=== PATIENT | female | born 1950 | race Caucasian/White ===

== ENCOUNTER 2020-11-30 18:51 | Inpatient (IN) ==
[2020-11-30] MEDS ORDERED: ETOMIDATE 2 MG/ML 20 ML VIAL IV ONE (19:04)
[2020-11-30] MEDS ORDERED: ROCURONIUM BROMIDE 10 MG/ML 5 ML VIAL IV ONE (19:04)
[2020-11-30] MEDS ORDERED: SODIUM CHLORIDE 0.9% 500 ML IV STA (19:30)
[2020-11-30] MEDS ORDERED: ALBUT/IPRATROP 3MG/0.5MG NEB 3 ML VIAL INH STA (19:30)
--- NOTE | 2020-11-30 19:37 | Emergency Department Note ---
History of Present Illness General Chief complaint: Shortness of Breath/Dyspnea Stated complaint: disorineted, sob, cough, hard of hearing Time Seen by Provider: 11/30/20 19:20 Source: patient Mode of arrival: ambulatory Limitations: no limitations History of Present Illness Provider complaint: Short of breath Maximum Pain Intensity: 5 This is a 70-year-old female who presents to the ED with a chief complaint of shortness of breath. The patient reports that she has had a nonproductive cough for a couple of weeks. She has recently become increasingly short of breath. Her increased shortness of breath started few days ago. She also reports feeling very weak and lightheaded. No additional complaints at this time. She reports no known Covid exposures. No vomiting or diarrhea. No chest pains. In triage she was noted to have saturations of 84% on room air. Denies any history of lung disease. She is a diabetic but reports that she has not been taking her medications for the past week or so because she has forgotten. Home Medications Medication Instructions Recorded Confirmed Type amlodipine 5 mg PO QAM 06/02/18 11/30/20 History aspirin [Aspirin Low Dose] 81 mg PO QAM 06/02/18 11/30/20 History cholecalciferol (vitamin D3) 1,000 unit PO QAM 06/02/18 11/30/20 History [Vitamin D3] glimepiride 1 mg PO QAM 06/02/18 11/30/20 History hydroxyzine HCl 10 mg PO BID PRN 11/30/20 11/30/20 History lisinopril 20 mg PO DAILY 11/30/20 11/30/20 History rosuvastatin 5 mg PO DAILY 11/30/20 11/30/20 History Allergies Allergy/AdvReac Type Severity Reaction Status Date / Time latex Allergy Unknown SWELLING Unverified 11/30/20 19:05 Penicillins Allergy Unknown HIGH Unverified 11/30/20 19:05 FEVER, RED BUMPS ON FACE. Past Med/Surg History Medical History Diabetes Hypertension Surgical History No significant past surgical history Social History Smoking Status: Never smoker Feels Safe at Home: Yes Review of Systems A total of 10 systems reviewed and were otherwise negative Physical Exam Vital Signs Vital Signs - 24 hr 11/30/20 18:55 11/30/20 19:30 11/30/20 19:45 Temperature 36.5 C Temperature Source Temporal Artery Scan Pulse Rate 96 H Pulse Rate [Finger] 83 Respiratory Rate 22 20 Respiratory Effort / Characteristics Non-Labored Spontaneous Pursed Lip Short of Breath Respiratory Depth Normal Respiratory Pattern Blood Pressure 144/71 H Blood Pressure [Right Arm] Blood Pressure Mean 95 Blood Pressure Mean [Right Arm] Blood Pressure Position [Right Arm] Pulse Oximetry 84 L 94 94 Oxygen Delivery Method Room Air Nasal Cannula Nasal Cannula Oxygen Flow Rate 3 3 Sepsis Recent Fever Within 48 Hours No Sepsis New/Unexplained Change in Mental Status N/A Sepsis Action Taken by Nursing No Action Required 11/30/20 20:36 Temperature Temperature Source Pulse Rate Pulse Rate [Finger] 86 Respiratory Rate 24 Respiratory Effort / Characteristics Non-Labored Spontaneous Respiratory Depth Normal Respiratory Pattern Regular Blood Pressure Blood Pressure [Right Arm] 141/44 H Blood Pressure Mean Blood Pressure Mean [Right Arm] 76 Blood Pressure Position [Right Arm] Lying Pulse Oximetry 94 Oxygen Delivery Method Nasal Cannula Oxygen Flow Rate 3 Sepsis Recent Fever Within 48 Hours Sepsis New/Unexplained Change in Mental Status Sepsis Action Taken by Nursing CONSTITUTIONAL/VITAL SIGNS: Reviewed / noted above. GENERAL: Non-toxic in appearance. INTEGUMENTARY: Warm, dry, and [place]. HEAD: Normocephalic. EYES: without scleral icterus or trauma. ENT/OROPHARYNX: clear and moist. LYMPHADENOPATHY/NECK: Is supple without lymphadenopathy or meningismus. RESPIRATORY: Lungs reveal some crackles on the right side. CARDIOVASCULAR: Regular rate and rhythm. GI/ABDOMEN: Soft and nontender. No organomegaly or pulsatile mass. No rebound or guarding. Normal bowel sounds. EXTREMITIES: Warm and well perfused. BACK: No CVA tenderness. NEUROLOGICAL: Intact without focal deficits. PSYCHIATRIC: normal affect. MUSCULOSKELETAL: Normally developed with good muscle tone. TRIAGE NURSING DOCUMENTATION REVIEWED. Course Administered Medications Azithromycin 500 mg/ Dextrose 255 mls @ 125 mls/hr IV ONE ONE Stop: 11/30/20 21:53 Last Admin: 11/30/20 20:32 Dose: 125 mls/hr Documented by: [id number] Discontinued Medications Albuterol (Albut/Ipratrop 3mg/0.5mg Neb 3 Ml Vial) 3 ml INH NOW STA Stop: 11/30/20 19:31 Last Admin: 11/30/20 19:50 Dose: 3 ml Documented by: [id number] Sodium Chloride (Nss) 500 mls @ 999 mls/hr IV .Q31M STA Stop: 11/30/20 20:00 Last Infusion: 11/30/20 20:38 Dose: 0 mls/hr Documented by: [id number] Admin: 11/30/20 19:59 Dose: 999 mls/hr Documented by: [id number] Sodium Chloride (Nss 1000ml) 1,000 mls @ 999 mls/hr IV .Q1H1M ONE Stop: 11/30/20 21:28 Last Admin: 11/30/20 20:32 Dose: 999 mls/hr Documented by: [id number] Critical Care Time Critical Care Time: Yes Total Critical Care Time: 30 I have personally spent 30 minutes of critical care time in the direct management of this patient. This includes bedside care, interpretation of diagnostic studies, and testing, discussion with consultants, patient, and family members, and other required patient management activities. This 30 minutes is in excess of all separately billable procedures. Medical Decision Making Differential Diagnosis The differential was considered includes acute myocardial infarction, acute coronary syndrome, myocarditis, pericarditis, pericardial effusions /tamponad, esophageal perforation, pulmonary embolism, pneumonia, pneumothorax, cardiomyopathy, congestive heart, anemia , COPD/asthma exacerbation. Medical Records Attestation: I reviewed the patient's medical records. Home Medications Current Medication List: was personally reviewed by me Laboratory Data Attestation: I reviewed the patient's lab results. Result diagrams: 11/30/20 19:38 11/30/20 19:38 Lab Results 11/30/20 11/30/20 11/30/20 Range/Units 19:38 19:38 19:55 WBC 4.41 L (4.8-10.8) K/uL RBC 5.42 H (4.2-5.4) M/uL Hgb 15.1 (12.0-16.0) g/dL Hct 44.4 (37-47) % MCV 81.9 (80-100) fL MCH 27.9 (25-34) pg MCHC 34.0 (32-36) g/dL RDW Std Deviation 40.5 (36.4-46.3) fL RDW Coeff of Frank 13.5 (11.5-14.5) % Plt Count 179 (130-400) K/uL MPV 10.9 H (7.4-10.4) fL Immature Gran % (Auto) 0.2 % Neut % (Auto) 73.1 % Lymph % (Auto) 12.0 % [place] % (Auto) 14.5 % Eos % (Auto) 0.0 % Baso % (Auto) 0.2 % Neut # (Auto) 3.22 (1.4-6.5) K/uL Lymph # (Auto) 0.53 L (1.2-3.4) K/uL [place] # (Auto) 0.64 H (0.11-0.59) K/uL Eos # (Auto) 0.00 (0-0.5) K/uL Baso # (Auto) 0.01 (0-0.2) K/uL Immature Gran # (Auto) 0.01 (0.00-0.02) K/uL Sodium 130 L (136-145) mmol/L Potassium 4.9 (3.5-5.1) mmol/L Chloride 96 L (98-107) mmol/L Carbon Dioxide 20 L (21-32) mmol/L Anion Gap 14.0 H (3-11) BUN 85 H (7-18) mg/dl Creatinine 3.19 H (0.6-1.2) mg/dl Est Cr Clr Drug Dosing Not Reportable Est GFR ( Amer) 16.1 ml/min Est GFR (Non-Af Amer) 13.9 ml/min BUN/Creatinine Ratio 26.6 H (10-20) Glucose 262 H (70-99) mg/dl Lactate (0.4-2.0) mmol/L Calcium 8.8 (8.5-10.1) mg/dl Total Bilirubin 0.7 (0.2-1) mg/dl AST 37 (15-37) U/L ALT 23 (12-78) U/L Alkaline Phosphatase 55 (45-117) U/L Troponin I < 0.015 (0-0.045) ng/ml NT-Pro-B Natriuret Pep 393 (0-900) pg/ml Total Protein 7.2 (6.4-8.2) gm/dl Albumin 2.8 L (3.4-5.0) gm/dl Globulin 4.4 H (2.5-4.0) gm/dl Albumin/Globulin Ratio 0.6 L (0.9-2) COVID-19 Eval Order SARS-CoV-2 (PCR) (Negative) Influ A Molecular Assay Negative (Negative) Influ B Molecular Assay Negative (Negative) 11/30/20 11/30/20 11/30/20 Range/Units 19:55 19:55 20:11 WBC (4.8-10.8) K/uL RBC (4.2-5.4) M/uL Hgb (12.0-16.0) g/dL Hct (37-47) % MCV (80-100) fL MCH (25-34) pg MCHC (32-36) g/dL RDW Std Deviation (36.4-46.3) fL RDW Coeff of Frank (11.5-14.5) % Plt Count (130-400) K/uL MPV (7.4-10.4) fL Immature Gran % (Auto) % Neut % (Auto) % Lymph % (Auto) % [place] % (Auto) % Eos % (Auto) % Baso % (Auto) % Neut # (Auto) (1.4-6.5) K/uL Lymph # (Auto) (1.2-3.4) K/uL [place] # (Auto) (0.11-0.59) K/uL Eos # (Auto) (0-0.5) K/uL Baso # (Auto) (0-0.2) K/uL Immature Gran # (Auto) (0.00-0.02) K/uL Sodium (136-145) mmol/L Potassium (3.5-5.1) mmol/L Chloride (98-107) mmol/L Carbon Dioxide (21-32) mmol/L Anion Gap (3-11) BUN (7-18) mg/dl Creatinine (0.6-1.2) mg/dl Est Cr Clr Drug Dosing Est GFR ( Amer) ml/min Est GFR (Non-Af Amer) ml/min BUN/Creatinine Ratio (10-20) Glucose (70-99) mg/dl Lactate 1.6 (0.4-2.0) mmol/L Calcium (8.5-10.1) mg/dl Total Bilirubin (0.2-1) mg/dl AST (15-37) U/L ALT (12-78) U/L Alkaline Phosphatase (45-117) U/L Troponin I (0-0.045) ng/ml NT-Pro-B Natriuret Pep (0-900) pg/ml Total Protein (6.4-8.2) gm/dl Albumin (3.4-5.0) gm/dl Globulin (2.5-4.0) gm/dl Albumin/Globulin Ratio (0.9-2) COVID-19 Eval Order Covid19 at [facility] SARS-CoV-2 (PCR) POSITIVE A* (Negative) Influ A Molecular Assay (Negative) Influ B Molecular Assay (Negative) Imaging Data Attestation: I personally reviewed and interpreted this imaging study as follows: Radiologist's Impression: Chest X-Ray 11/30/20 19:30 SINGLE VIEW CHEST CLINICAL HISTORY: Dyspnea. FINDINGS: An AP, portable, upright chest radiograph is compared to study dated 06/02/2018. The patient is status post midline sternotomy. The heart is enlarged noting atherosclerotic calcification of the thoracic aorta. There is pulmonary vascular congestion. Bilateral interstitial airspace opacities are seen bilaterally. No large pleural effusion or pneumothorax is identified. The skeletal structures are osteopenic. The bony thorax is grossly intact. IMPRESSION: 1. Cardiomegaly with pulmonary vascular congestion. 2. Interstitial airspace opacities are seen bilaterally. This could represent pulmonary edema and/or an infectious/inflammatory pneumonitis. Clinical correlation will be required and radiographic follow-up to resolution is recommended. ACT 112: Negative or not required by law. Electronically signed by: Shubham Lindsey M.D. 11/30/2020 8:38 PM ECG Data Attestation: I personally reviewed and interpreted this ECG as follows: Indication: + weakness Rate (beats per minute): 84 Rhythm: + normal sinus ECG Intervals/blocks: + Normal QT-c ECG ST segments: no ST elevation ECG Findings: no PVCs MDM Narrative Patient presents with shortness of breath, weakness and a cough as detailed above. Vital signs reveal oxygen saturations of 84% on room air. Blood pressure and heart rate are normal. Currently afebrile. EKG shows normal sinus rhythm. Chest x-ray shows bilateral pneumonia in the lower lobes. CBC shows a white blood cell count of 4.41. BUN is 85 and creatinine is 3.19. Glucose is 262. BNP was normal. Troponin is negative. Covid test was positive. The patient was given 2 L normal saline IV. She was given IV Zithromax and a DuoNeb treatment. She will be seen by the hospitalist for further patient evaluation and care. Impression & Plan Bilateral interstitial pneumonia, COVID-19, Acute renal failure Discharge Plan Visit Data Chief Complaint: Shortness of Breath/Dyspnea Stated Complaint: disorineted, sob, cough, hard of hearing ED Provider: Virgil Fischer Discharge Problem: Bilateral interstitial pneumonia, COVID-19, Acute renal failure Patient Disposition: Being Evaluated by Hospitalist Forms Stand Alone Forms: [facility] Prescriptions Prescriptions: No Action amlodipine 5 mg tablet 5 mg PO QAM RF: 0 aspirin [Aspirin Low Dose] 81 mg Tablet,Delayed Release (Dr/Ec) 81 mg PO QAM RF: 0 glimepiride 1 mg tablet 1 mg PO QAM RF: 0 cholecalciferol (vitamin D3) [Vitamin D3] 1,000 unit Capsule 1,000 unit PO QAM RF: 0 lisinopril 20 mg tablet 20 mg PO DAILY RF: 0 rosuvastatin 5 mg tablet 5 mg PO DAILY RF: 0 hydroxyzine HCl 10 mg tablet 10 mg PO BID PRN (Reason: anxiety/itching) RF: 0 Referrals Referrals: Bala Neely MD [Primary Care Provider] -
[2020-11-30 19:51] LABS: Basophils # (auto) 0.01 K/uL (0-0.2); Basophils % (auto) 0.2 %; Hematocrit (blood only) 44.4 % (37-47); Hemoglobin 15.1 g/dL (12.0-16.0); Immature Granulocytes # (auto) 0.01 K/uL (0.00-0.02); Immature Granulocytes % (auto) 0.2 %; Lymphocytes # (auto) 0.53 K/uL (1.2-3.4); Mean Corpuscular Hemoglobin 27.9 pg (25-34); Mean Corpuscular Volume 81.9 fL (80-100); Mean Platelet Volume 10.9 fL (7.4-10.4); Monocytes # (auto) 0.64 K/uL (0.11-0.59); Monocytes % (auto) 14.5 %; Neutrophils # (auto) 3.22 K/uL (1.4-6.5); Neutrophils % (auto) 73.1 %; Platelet Count 179 K/uL (130-400); RDW Coefficient of Variation 13.5 % (11.5-14.5); RDW Standard Deviation 40.5 fL (36.4-46.3); Red Blood Count 5.42 M/uL (4.2-5.4); White Blood Count 4.41 K/uL (4.8-10.8)
[2020-11-30] MEDS ORDERED: AZITHROMYCIN 500 MG in DEXTROSE 5% 250 ML IV ONE (19:51)
[2020-11-30 20:21] LABS: Alanine Aminotransferase 23 U/L (12-78); Albumin Level 2.8 gm/dl (3.4-5.0); Aspartate Aminotransferase 37 U/L (15-37); BUN Creatinine Ratio 26.6 (10-20); Blood Urea Nitrogen 85 mg/dl (7-18); Calcium 8.8 mg/dl (8.5-10.1); Carbon Dioxide 20 mmol/L (21-32); Chloride 96 mmol/L (98-107); Est GFR (African American) 16.1 ml/min; Est GFR (Non-African American) 13.9 ml/min; Glucose 262 mg/dl (70-99); Potassium 4.9 mmol/L (3.5-5.1); Sodium 130 mmol/L (136-145)
[2020-11-30 20:26] LABS: Albumin Globulin Ratio 0.6 (0.9-2); Alkaline Phosphatase 55 U/L (45-117); Bilirubin,Total 0.7 mg/dl (0.2-1); Globulin 4.4 gm/dl (2.5-4.0); NT Pro B Type Natriuretic Pept 393 pg/ml (0-900); Total Protein 7.2 gm/dl (6.4-8.2); Troponin I < 0.015 ng/ml (0-0.045)
[2020-11-30] MEDS ORDERED: SODIUM CHLORIDE 0.9% 1000ML 1,000 ML IV ONE (20:28)
--- NOTE | 2020-11-30 20:39 | XRay Report ---
SINGLE VIEW CHEST CLINICAL HISTORY: Dyspnea. FINDINGS: An AP, portable, upright chest radiograph is compared to study dated 06/02/2018. The patien t is status post midline sternotomy. The heart is enlarged noting atherosclerotic calcification of th e thoracic aorta. There is pulmonary vascular congestion. Bilateral interstitial airspace opacities a re seen bilaterally. No large pleural effusion or pneumothorax is identified. The skeletal structures are osteopenic. The bony thorax is grossly intact. IMPRESSION: 1. Cardiomegaly with pulmonary vascular congestion. 2. Interstitial airspace opacities are seen bilaterally. This could represent pulmonary edema and/or an infectious/inflammatory pneumonitis. Clinical correlation will be required and radiographic follow -up to resolution is recommended. ACT 112: Negative or not required by law. Electronically signed by: Shubham Lindsey M.D. 11/30/2020 8:38 PM
[2020-11-30 20:43] LABS: Influenza A virus by PCR Negative (Negative); Influenza B virus by PCR Negative (Negative)
[2020-11-30] MEDS ORDERED: dexAMETHasone 6 MG in SYRINGE 0 ML IV ONE (21:15)
--- NOTE | 2020-11-30 21:40 | History & Physical Report ---
Date of Service November 30, 2020 Assessment & Plan (1) Hypoxia: (2) Pneumonia due to COVID-19 virus: (3) ADONIS (acute kidney injury): (4) Diabetes mellitus, type II: (5) CAD (coronary artery disease): (6) Hypertension: Assessment and plan per Dr. Juan HPI, chart review, [facility], PE completed by Aster Parra PA-C History of Present Illness Chief Complaint: SOB Primary Care Provider: Bala Neely MD Pt is 70 y/o F with PMH DM II (A1c: 8.8 on 09/2020), HTN, CAD s/p CABG x 3 presented to ER with complaint of shortness of breath. Patient is currently confused and gives history however unsure how reliable from patient. Chart review and outpatient records reviewed. Patient reports returned from the [place] a couple of weeks ago. She is unable to tell me the [place] or the state but reports she did travel by airplane. She reports she has had a cough for couple weeks and has been having increasing shortness of breath, worse with exertion. She feels weak and lightheaded. Also complains of lower anterior chest discomfort. Patient does not think she has had lower extremity edema. She reports that she has been having trouble remembering recently. She states doesn't remember when she last took her medication. Patient denies any known ill contacts, however ER nurse reports somebody called in to state that patient was around somebody who has now tested positive for COVID-19. She reports has not had COVID-19 vaccination. She denies fever, chills, nausea, vomiting, diarrhea, abdominal pain, syncope, rhinorrhea, sore throat, abdominal pain, paresthesias, rashes, urinary symptoms. In ER in triage oxygen saturations were noted to be 84%, patient was placed on oxygen with O2 sats up to 94% on 3L via nasal cannula. COVID-19 PCR is positive. initial troponin negative. CXR: Interstitial airspace opacities are seen bilaterally. Lactate within normal limits. BUN: 85, Cr: 3.1 (baseline Cr: 1.6) Allergies Allergy/AdvReac Type Severity Reaction Status Date / Time latex Allergy Unknown SWELLING Unverified 11/30/20 19:05 Penicillins Allergy Unknown HIGH Unverified 11/30/20 19:05 FEVER, RED BUMPS ON FACE. Home Medications Medication Instructions Recorded Confirmed Type amlodipine 5 mg PO QAM 06/02/18 11/30/20 History aspirin [Aspirin Low Dose] 81 mg PO QAM 06/02/18 11/30/20 History cholecalciferol (vitamin D3) 1,000 unit PO QAM 06/02/18 11/30/20 History [Vitamin D3] glimepiride 1 mg PO QAM 06/02/18 11/30/20 History hydroxyzine HCl 10 mg PO BID PRN 11/30/20 11/30/20 History lisinopril 20 mg PO DAILY 11/30/20 11/30/20 History rosuvastatin 5 mg PO DAILY 11/30/20 11/30/20 History Past Med/Surg History Medical History (Updated 11/30/20 @ 21:37 by Aster Parra PA-C) CAD (coronary artery disease) Diabetes Diabetes mellitus, type II Hypertension Surgical History (Updated 11/30/20 @ 21:31 by Aster Parra PA-C) S/P CABG x 3 Family History (Updated 11/30/20 @ 21:34 by Aster Parra PA-C) Mother Cancer Social History (Updated 11/30/20 @ 21:34 by Aster Parra PA-C) Smoking Status: Never smoker Hx Alcohol Use: No Hx Substance Use: No Zinc Plate Cutter Required: No Beliefs That Will Affect Care: None Current Living Situation: Family Other Information That Helps Us Care for You: No Feels Safe at Home: Yes Safety Concerns: Feels Safe At This Time Assistive Devices: Denture - Upper Review of Systems Review of Systems: All systems reviewed & are unremarkable except as noted in HPI & below Physical Exam Physical Exam: General: no distress, resting in bed on 3L oxygen via NC, obese Head: normocephalic, atraumatic Eyes: PERRL, EOM's intact, conjunctiva non-injected, anicteric ENT: normal inspection external ears, nose, mucous membranes dry Neck: supple, trachea midline Lungs: on 3L oxygen, no respiratory distress, +dry cough, course breath sounds throughout CV: RRR, no murmur, 1-2+ pretibial edema Abd: normal BS, soft, non-tender Ext: no cyanosis, no calf tenderness Neuro: Alert, oriented to person, knows in hospital but unsure of name or town, knows 2020 unsure of month or day Skin: warm, dry Results & Data Results & Data ([facility]) Vital Signs (Past 12 Hours) Vital Signs Temp Pulse Pulse Resp BP BP Pulse Ox 11/30/20 20:36 86 24 141/44 H 94 11/30/20 19:45 83 20 94 11/30/20 19:30 94 11/30/20 18:55 36.5 C 96 H 22 144/71 H 84 L Laboratory Results Short CBC 11/30/20 11/30/20 Range/Units 19:38 19:38 WBC 4.41 L (4.8-10.8) K/uL Hgb 15.1 (12.0-16.0) g/dL Hct 44.4 (37-47) % Plt Count 179 (130-400) K/uL Creatinine 3.19 H (0.6-1.2) mg/dl BMP 11/30/20 19:38 Sodium 130 L Potassium 4.9 Chloride 96 L Carbon Dioxide 20 L BUN 85 H Creatinine 3.19 H Glucose 262 H Calcium 8.8 Cardiac Enzymes 11/30/20 Range/Units 19:38 Troponin I < 0.015 (0-0.045) ng/ml Liver Function 11/30/20 Range/Units 19:38 Total Bilirubin 0.7 (0.2-1) mg/dl AST 37 (15-37) U/L ALT 23 (12-78) U/L Alkaline Phosphatase 55 (45-117) U/L Albumin 2.8 L (3.4-5.0) gm/dl Diagnostic Findings Chest X-Ray 11/30/20 19:30 SINGLE VIEW CHEST CLINICAL HISTORY: Dyspnea. FINDINGS: An AP, portable, upright chest radiograph is compared to study dated 06/02/2018. The patient is status post midline sternotomy. The heart is enlarged noting atherosclerotic calcification of the thoracic aorta. There is pulmonary vascular congestion. Bilateral interstitial airspace opacities are seen bilaterally. No large pleural effusion or pneumothorax is identified. The skeletal structures are osteopenic. The bony thorax is grossly intact. IMPRESSION: 1. Cardiomegaly with pulmonary vascular congestion. 2. Interstitial airspace opacities are seen bilaterally. This could represent pulmonary edema and/or an infectious/inflammatory pneumonitis. Clinical correlation will be required and radiographic follow-up to resolution is recommended. ACT 112: Negative or not required by law. Electronically signed by: Shubham Lindsey M.D. 11/30/2020 8:38 PM Supervising Physician Co-Signing Physician Notes IM ATTENDING : Patient seen and examined. History obtained from patient, family, and records. History somewhat limited from patient secondary to disorientation. Preceding documentation by Ms. Aster Parra PA-C reviewed. FINAL ASSESSMENT AND PLAN as follows : Encephalopathy Multifactorial : Acute hypoxemic respiratory failure secondary to severe COVID-19 pneumonia rule out PE given central chest pain complaints ARF on CKD secondary to illness Home medications contributory CAD status post CABG Hypertension, slight elevated Hyperlipidemia on statin Rx DM2, on oral medications, suboptimal control as of recent hemoglobin A1c of 8.22 September 2020 Past tobacco abuse Medical telemetry Supplemental O2 Decadron No indication for antibiotic for now. IV Heparin until PE DVT ruled out (VQ scan if possible, LE Dopplers; CT angio study currently precluded by kidney dysfunction) TTE RE chest pain Pulmonary consult if without improvement Baseline UA, monitor creatinine response to IVF Appropriate to hold home ED inhibitor until creatinine back to baseline Nephrology consult if without improvement Hold hydroxyzine for chronic itch until mentation back to baseline Basal insulin, ISS BG goal 1 10-1 40, carb count coverage DVT prophylaxis. IV Heparin Full code Patient's daughter requesting updates from providers. Ms. Alisa Cagle, contact #[phone]. Text document was generated using [employer] voice recognition software. It may contain grammatical or spelling errors. Kindly contact undersigned for clarification of any documentation item in question.
[2020-11-30 21:43] LABS: Magnesium 2.5 mg/dl (1.8-2.4); Thyroid Stimulating Hormone 0.766 uIu/ml (0.300-4.500)
[2020-11-30] MEDS ORDERED: INSULIN GLARGINE SOLOSTAR 100 UNITS/ML 3 ML PEN SC STA (21:50)
[2020-11-30 22:42] LABS: Base Excess ABG -5.9 mEq/L (-9-1.8); HCO3 ABG 17 mmol/L (19-24); Oxygen Saturation ABG 88.5 % (90-95); PCO2 ABG 28 mmHg (35-46); PO2 ABG 54 mmHg (80-95); pH ABG 7.41 (7.35-7.45)
[2020-11-30 22:45] LABS: Allen Test Pos (Pos)
[2020-11-30 22:52] LABS: Partial Thromboplastin Time 27.3 Seconds (21.0-31.0)
[2020-11-30 22:59] LABS: Calcium 7.6 mg/dl (8.5-10.1); Creatinine Clr Calc Pharmacy 19.8 ml/min; Est GFR (African American) 19.5 ml/min; Est GFR (Non-African American) 16.8 ml/min; Potassium 4.5 mmol/L (3.5-5.1)
[2020-11-30] MEDS ORDERED: GLUCAGON FOR INJ 1 MG VIAL SQ PRN (23:39)
[2020-11-30] MEDS ORDERED: PROMETHAZINE HCL 12.5 MG in SODIUM CHLORIDE 0.9% 50 ML IV PRN (23:39)
[2020-11-30] MEDS ORDERED: DEXTROSE 50% 50 ML SYRINGE IV PRN (23:39)
[2020-11-30] MEDS ORDERED: GLUCOSE 40% GEL 15 GM TUBE PO PRN (23:39)
[2020-11-30] MEDS ORDERED: GLUCOSE 10 TABS/TUBE PO PRN (23:39)
[2020-11-30] MEDS ORDERED: CARBOHYDRATES FOR HYPOGLYCEMIA PO PRN (23:39)
[2020-11-30] MEDS ORDERED: LACTATED RINGER'S 1,000 ML IV ONE (23:55)
[2020-12-01] MEDS: LEVALBUTEROL TARTRATE 15 GM HFA.AER.AD INH SCH ×4 (00:42→20:53)
[2020-12-01] MEDS: INSULIN ASPART 100 UNITS/ML 3 ML PEN SC SCH ×5 (01:27→20:57)
[2020-12-01] MEDS: guaiFENesin 600 MG TABCR PO SCH ×3 (01:27→22:12)
[2020-12-01] MEDS ORDERED: Heparin IV Adult Wt-Based Standard *NO* Bolus Protocol IV SCH (02:09)
[2020-12-01] MEDS ORDERED: HEPARIN SODIUM/DEXTROSE 25,000 UNITS/500 ML BAG IV SCH (02:25)
[2020-12-01 06:28] LABS: Hematocrit (blood only) 38.4 % (37-47); Hemoglobin 13.1 g/dL (12.0-16.0); Immature Granulocytes # (auto) 0.01 K/uL (0.00-0.02); Immature Granulocytes % (auto) 0.4 %; Lymphocytes # (auto) 0.46 K/uL (1.2-3.4); Lymphocytes % (auto) 19.9 %; Mean Corpuscular Hemoglobin 27.4 pg (25-34); Mean Corpuscular Hgb Conc 34.1 g/dL (32-36); Mean Corpuscular Volume 80.3 fL (80-100); Mean Platelet Volume 10.2 fL (7.4-10.4); Monocytes # (auto) 0.16 K/uL (0.11-0.59); Monocytes % (auto) 6.9 %; Neutrophils # (auto) 1.68 K/uL (1.4-6.5); Neutrophils % (auto) 72.8 %; Platelet Count 158 K/uL (130-400); RDW Coefficient of Variation 13.4 % (11.5-14.5); RDW Standard Deviation 39.6 fL (36.4-46.3); Red Blood Count 4.78 M/uL (4.2-5.4); White Blood Count 2.31 K/uL (4.8-10.8)
--- NOTE | 2020-12-01 06:34 | Ultrasound Report ---
BILATERAL LOWER EXTREMITY VENOUS DOPPLER CLINICAL HISTORY: pe dvt workup COMPARISON STUDY: Bilateral lower extremity venous Doppler ultrasound February 24, 2018. TECHNIQUE: Sonography of the deep venous system of the bilateral lower extremities was performed. Co mpression and augmentation were evaluated. FINDINGS: The bilateral common femoral, superficial femoral and popliteal veins were compressible. A ugmentation was normal. Flow was shown within the deep calf vessels. IMPRESSION: No evidence of deep venous thrombus within the bilateral lower extremities. ACT 112: Negative or not required by law. Electronically signed by: Deshawn Corona M.D. 12/01/2020 6:33 AM
[2020-12-01 06:56] LABS: BUN Creatinine Ratio 30.8 (10-20); Calcium 8.1 mg/dl (8.5-10.1); Creatinine Clr Calc Pharmacy 20.1 ml/min; Est GFR (African American) 20.4 ml/min; Est GFR (Non-African American) 17.6 ml/min; Potassium 4.5 mmol/L (3.5-5.1)
[2020-12-01 07:01] LABS: Troponin I 0.018 ng/ml (0-0.045)
--- NOTE | 2020-12-01 07:16 | CT Scan Report ---
HEAD CT NONCONTRAST CT DOSE: HISTORY: Altered mental status TECHNIQUE: Multiaxial CT images of the head were performed without the use of intravenous contrast. A utomated exposure control was utilized for this study. A dose lowering technique was utilized adheri ng to the principles of ALARA. Comparison: None. Findings: The paranasal sinuses and mastoid air cells are clear. The calvarium and skull base are int act. The ventricles and sulci are within normal limits. There is no mass, hematoma, midline shift, or acute infarct. Impression: No acute intracranial abnormality. ACT 112: Negative or not required by law. Electronically signed by: Hossein Solano M.D. 12/01/2020 7:15 AM
--- NOTE | 2020-12-01 07:43 | CT Scan Report ---
CT OF THE ABDOMEN AND PELVIS WITHOUT CONTRAST CLINICAL HISTORY: Abdominal discomfort, arf ckd COMPARISON STUDY: CT of the abdomen and pelvis June 02, 2018. TECHNIQUE: Axial images of the abdomen and pelvis were obtained without IV contrast. Images were revi ewed in the axial, sagittal, and coronal planes. Automated exposure control was utilized for the ed dy. A dose lowering technique was utilized adhering to the principles of ALARA. FINDINGS: Subpleural airspace opacities are noted within the lower lungs, most pronounced within the visualized right upper lobe. Lungs are suboptimally assessed due to respiratory motion. No pneumatosi s, free air or portal venous gas is present. Cardiomegaly is noted. There is a small hiatal hernia. L ow-attenuation bilateral adrenal nodules are unchanged. These reflect adenomas. There are gallstones within the gallbladder. Evaluation of the gallbladder is mildly compromised by motion artifact. Hepat ic steatosis is noted. Unenhanced images of the spleen and pancreas are unremarkable. There is no reina dence for a bowel obstruction. The appendix is normal. Colonic diverticulosis is noted without eviden ce for acute diverticulitis. No urinary calculi are present. There is no hydronephrosis. A right-side d parapelvic cyst is noted. Bladder is mildly distended. Moderate left and mild right renal atrophy i s noted. Bilateral perinephric stranding and fluid is nonspecific. No acute fracture is noted within visualized skeletal structures. IMPRESSION: 1. No urinary calculi or hydronephrosis. Moderate left and mild right renal atrophy with nonspecific bilateral perinephric stranding. 2. Airspace opacities within the lower lungs. The findings could reflect an infectious process, pulmo nary edema or interstitial lung disease. 3. Cholelithiasis. If right upper quadrant pain, ultrasound is recommended. 4. Hepatic steatosis. 5. No bowel obstruction ACT 112: Negative or not required by law. Electronically signed by: Deshawn Corona M.D. 12/01/2020 7:42 AM
[2020-12-01] MEDS: ASPIRIN 81 MG ECTAB PO SCH (08:55)
[2020-12-01] MEDS: dexAMETHasone 6 MG in SYRINGE 0 ML IV SCH (08:55)
[2020-12-01] MEDS: amLODIPine BESYLATE 5 MG TAB PO SCH (08:55)
[2020-12-01] MEDS: ROSUVASTATIN CALCIUM 5 MG TAB PO SCH (08:56)
[2020-12-01] MEDS ORDERED: DOXYCYCLINE HYCLATE 100 MG CAP PO SCH (09:00)
[2020-12-01] MEDS ORDERED: INSULIN GLARGINE SOLOSTAR 100 UNITS/ML 3 ML PEN SQ SCH (09:00)
[2020-12-01 11:00] LABS: Partial Thromboplastin Ratio 3.8
[2020-12-01 11:10] LABS: Partial Thromboplastin Time 101.2 Seconds (21.0-31.0)
--- NOTE | 2020-12-01 15:07 | Electrocardiogram Report ---
Test Reason : Blood Pressure : / mmHG Vent. Rate : 084 BPM Atrial Rate : 084 BPM P-R Int : 140 ms QRS Dur : 070 ms QT Int : 342 ms P-R-T Axes : 000 018 032 degrees QTc Int : 404 ms Normal sinus rhythm Poor R wave progression, consider anterior CT vs. lead placement vs. LVH Abnormal ECG Confirmed by Stelring Martini ([id number]) on 12/01/2020 3:06:58 PM Referred By: REFERRED SELF Confirmed By:Amos Martini
--- NOTE | 2020-12-01 15:19 | Pulmonary Consultation ---
Date of Consultation December 01, 2020 Assessment & Plan (1) Pneumonia due to COVID-19 virus: 70-year-old female with a history of coronary artery bypass grafting, hypertension, obesity, diabetes mellitus type 2 and hyperlipidemia who presented to the hospital due to lethargy and shortness of breath. Hypoxia: This is secondary to COVID-19 pneumonia. Possible component of congestive heart failure given her history of coronary artery bypass grafting interstitial findings. Recommend as needed diuretic therapy with Lasix. She does have an ADONIS which is slowly improving. She is currently on IV heparin. Lower extremity Dopplers were negative. I do not suspect pulmonary embolism at this time. She does not have evidence of tachycardia. She has infiltrates noted on the chest x-ray likely from Covid pneumonia which are the most likely cause of her hypoxia. Micro thromboemboli are very difficult to rule out in such patients. If she has a sudden decompensation concerning for pulmonary embolism, then I would recommend going ahead and obtaining a chest CT with contrast. At this time I would recommend transitioning to subcutaneous heparin. Continue with Decadron therapy. Consider CRP, ferritin and D-dimer evaluations. If she decompensates further from a COVID-19 perspective and requires ICU transfer, then she may be a candidate for tocilizumab therapy. She appears stable at present. Encourage proning. Recommend incentive spirometry and flutter valve therapy. Discussed with hospitalist and RN at bedside. Thank you for the consultation. Please call with questions. (2) Hypoxia: (3) CAD (coronary artery disease): History of Present Illness Reason for Consultation: COVID-19 pneumonia and hypoxia Attending Physician: Yanet Shah MD History of Present Illness 70-year-old female with a history of diabetes mellitus type 2 and coronary artery disease who presented to the hospital yesterday due to confusion. Patient's family member is also in the hospital due to COVID-19 illness. She was recently in [place] and traveled by airplane. She has had a cough for a few weeks. She is currently requiring 13 L of oxygen to maintain saturations in the low 90s. Chest x-ray completed yesterday demonstrated increased interstitial opacities. Pleural BNP completed yesterday was within normal limits at a level of 393 pg/mL. ADONIS was present on admission with creatinine 3.19. This is improved to 2.63 today. ABG from admission reviewed which demonstrates respiratory alkalosis with hypoxia on 3 L of oxygen. PO2 was 54. She is currently on dexamethasone 6 mg daily and heparin infusion. Lower extremity Doppler yesterday was negative for DVT in the bilateral lower ex tremities. Patient denies any significant cough at this time. She feels like she has more energy now. She is currently laying in bed. She denies any shortness of breath while at rest. No fevers or chills at this present time. Allergies Allergy/AdvReac Type Severity Reaction Status Date / Time latex Allergy Unknown SWELLING Unverified 11/30/20 19:05 Penicillins Allergy Unknown HIGH Unverified 11/30/20 19:05 FEVER, RED BUMPS ON FACE. Home Medications Medication Instructions Recorded Confirmed Type amlodipine 5 mg PO QAM 06/02/18 11/30/20 History aspirin [Aspirin Low Dose] 81 mg PO QAM 06/02/18 11/30/20 History cholecalciferol (vitamin D3) 1,000 unit PO QAM 06/02/18 11/30/20 History [Vitamin D3] glimepiride 1 mg PO QAM 06/02/18 11/30/20 History hydroxyzine HCl 10 mg PO BID PRN 11/30/20 11/30/20 History lisinopril 20 mg PO DAILY 11/30/20 11/30/20 History rosuvastatin 5 mg PO DAILY 11/30/20 11/30/20 History Patient History Medical History (Updated 11/30/20 @ 21:37 by Aster Parra PA-C) CAD (coronary artery disease) Diabetes Diabetes mellitus, type II Hypertension Surgical History (Updated 11/30/20 @ 21:31 by Aster Parra PA-C) S/P CABG x 3 Family History (Updated 11/30/20 @ 21:34 by Aster Parra PA-C) Mother Cancer Social History (Updated 11/30/20 @ 21:34 by Aster Parra PA-C) Smoking Status: Never smoker Hx Alcohol Use: No Hx Substance Use: No Beverage Distiller Required: No Beliefs That Will Affect Care: None Current Living Situation: Family Other Information That Helps Us Care for You: No Feels Safe at Home: Yes Safety Concerns: Feels Safe At This Time Assistive Devices: Denture - Upper Review of Systems Review of Systems: All systems reviewed & are unremarkable except as noted in HPI & below Physical Exam Constitutional: + obese and + disheveled Respiratory: normal respiratory effort, lungs clear to auscultation Cardiovascular: RRR, no murmur, no edema Gastrointestinal (Abdomen): normal bowel sounds, soft, nontender, no hepatosplenomegaly Musculoskeletal: no cyanosis or clubbing, extremities motor strength 5/5 Skin: no rashes, warm and dry Neurologic: PERRL, EOMI, accommodation nl, no face palsy, no dysarthria Psychiatric: A+Ox3, euthymic affect Results & Data Results & Data ([facility]) Vital Signs (Past 12 Hours) Vital Signs Temp Pulse Pulse Resp BP Pulse Ox 12/01/20 13:24 75 18 91 12/01/20 11:44 97.7 F 74 21 132/63 92 12/01/20 07:48 98.2 F 74 20 107/66 90 12/01/20 07:43 74 12/01/20 07:24 75 20 91 vital signs, labs and imaging reviewed PG Care Time/CCT Total # of Minutes Spent Total Time Spent with Patient: Total time spent is greater than 50% in coordination of care (as documented) at patient's floor/unit and/or counseling patient: Coding Level of Care Code 56831 Initial Inpt Care Lvl 3 Diagnoses Pneumonia due to COVID-19 virus U07.1; J12.82 Hypoxia R09.02 CAD (coronary artery disease) I25.10
--- NOTE | 2020-12-01 16:41 | Hospitalist Progress Note ---
Date of Service December 01, 2020 Assessment & Plan (1) Hypoxia: (2) Pneumonia due to COVID-19 virus: Present on admission worsening shortness of breath COVID-19 tested positive CXR showed cardiomegaly with pulmonary vascular congestion. Interstitial airspace opacities are seen bilaterally. Started on Dexamethasone 6mg IV daily, will continue Remdesivir did not start due to poor renal function Pt was started on heparin drip since unable to get a CTA chest to r/o PE Hypoxia moslty due to COVID 19. Doubt of PE since no tachycardia and CXR showed infiltrate mostly from COVID 19 Pulm consulted Will discontinue heparin drip Continue oxygen supplement Check D-dimer, CRP, Ferritin and ESR Continue to monitor closely ADONIS Mostly due to acute illness Creatinine 2.6 today Avoid nephrotoxic agent Continue monitor BMP Metabolic encephalopathy Mostly related to acute illness/COVID 19 CT head showed no acute intracranial abnormality Clinically improves CAD Denies any chest Continue aspirin and statin Diabetes We will check an A1c Continue insulin sliding with NovoLog and Lantus Pharmacy consulted for glycemic management Continue monitor blood sugar DVT px Discontinue heparin started on subcu heparin CODE status full code . (3) ADONIS (acute kidney injury): (4) Diabetes mellitus, type II: (5) CAD (coronary artery disease): (6) Hypertension: Assessment and plan per Dr. Juan HPI, chart review, PM, PE completed by Aster Parra PA-C Admission and Anticipated Discharge Date Admission Date: November 30, 2020 Subjective Patient was seen and examined for shortness of breath due to Covid 19 Lying in bed with mild acute distress. Currently she is on 13 L of oxygen supplement Patient said her breathing improved. Denies any chest pain, palpitation, chest, and fever Review of Systems Review of Systems: All systems reviewed & are unremarkable except as noted in Subjective Physical Exam Physical Exam: General- No acute distress Head- atraumatic Eyes- PERRL, EOMI, ENT- oropharynx clear Neck- supple, no JVD Lungs-no wheezing Heart- regular rhythm; no murmur Abdomen- normal bowel sounds, soft, nontender Extremities- no calf tenderness Neuro- alert, oriented x 3; PERRL, EOMI; no facial palsy; no dysarthria Skin- warm & dry Results & Data Results & Data ([facility]) Vital Signs (Past 12 Hours) Vital Signs Temp Pulse Pulse Resp BP Pulse Ox 12/01/20 13:24 75 18 91 12/01/20 11:44 36.5 C 74 21 132/63 92 12/01/20 07:48 36.8 C 74 20 107/66 90 12/01/20 07:43 74 12/01/20 07:24 75 20 91
[2020-12-01] MEDS ORDERED: PHARMACY GLYCEMIC MGMT CONSULT PRN (17:00)
[2020-12-01 17:10] LABS: Partial Thromboplastin Ratio 4.3
[2020-12-01] MEDS ORDERED: INSULIN GLARGINE SOLOSTAR 100 UNITS/ML 3 ML PEN SC STA (17:14)
[2020-12-01 17:44] LABS: Partial Thromboplastin Time 111.8 Seconds (21.0-31.0)
[2020-12-01] MEDS: HEPARIN SOD 5,000 UNIT/0.5 ML VIAL SQ SCH ×2 (18:13→22:12)
[2020-12-02] MEDS: INSULIN ASPART 100 UNITS/ML 3 ML PEN SC SCH ×6 (00:38→20:46)
[2020-12-02] MEDS: LEVALBUTEROL TARTRATE 15 GM HFA.AER.AD INH SCH ×4 (01:49→20:24)
[2020-12-02] MEDS: HEPARIN SOD 5,000 UNIT/0.5 ML VIAL SQ SCH ×3 (05:42→20:42)
[2020-12-02 07:16] LABS: BUN Creatinine Ratio 29.6 (10-20); C Reactive Protein 1.98 mg/dl (0-0.29); Calcium 9.2 mg/dl (8.5-10.1); Creatinine Clr Calc Pharmacy 21.4 ml/min; Est GFR (African American) 22.1 ml/min; Est GFR (Non-African American) 19.1 ml/min; Potassium 4.1 mmol/L (3.5-5.1)
[2020-12-02 07:46] LABS: D Dimer 1150 ug/L FEU (0-500)
[2020-12-02] MEDS: guaiFENesin 600 MG TABCR PO SCH ×2 (08:25→20:47)
[2020-12-02] MEDS: ROSUVASTATIN CALCIUM 5 MG TAB PO SCH (08:26)
[2020-12-02] MEDS: ASPIRIN 81 MG ECTAB PO SCH (08:26)
[2020-12-02] MEDS: amLODIPine BESYLATE 5 MG TAB PO SCH (08:26)
[2020-12-02] MEDS: dexAMETHasone 6 MG in SYRINGE 0 ML IV SCH (08:26)
[2020-12-02 11:06] LABS: iSTAT Allen Test Pass; iSTAT Art Bld Gas pCO2 Correct 23 mmHg (35-46); iSTAT Art Bld Gas pH Corrected 7.476 (7.35-7.45); iSTAT Arterial Blood Gas HCO3 17 meg/L (19-24); iSTAT Arterial Blood Gas pCO2 23 mmHg (35-46); iSTAT Arterial Blood Gas pH 7.48 (7.35-7.45); iSTAT Arterial Blood Gas pO2 41 mmHg (80-95); iSTAT Arterial Blood Gas pO2 C 41; iSTAT Carbon Dioxide 18 mmol/L (24-31); iSTAT Hematocrit 40 % (37-47); iSTAT Hemoglobin 13.6 g/dl (12.0-16.0); iSTAT Potassium 4.5 mmol/L (3.3-5.0); iSTAT Site L Radial; iSTAT Sodium 132 mmol/L (135-144)
[2020-12-02 11:06] LABS: iSTAT Allen Test Pass; iSTAT Art Bld Gas pCO2 Correct 29 mmHg (35-46); iSTAT Art Bld Gas pH Corrected 7.438 (7.35-7.45); iSTAT Arterial Blood Gas HCO3 19 meg/L (19-24); iSTAT Arterial Blood Gas pCO2 29 mmHg (35-46); iSTAT Arterial Blood Gas pH 7.44 (7.35-7.45); iSTAT Arterial Blood Gas pO2 36 mmHg (80-95); iSTAT Arterial Blood Gas pO2 C 36; iSTAT Carbon Dioxide 20 mmol/L (24-31); iSTAT Hematocrit 42 % (37-47); iSTAT Hemoglobin 14.3 g/dl (12.0-16.0); iSTAT Potassium 4.8 mmol/L (3.3-5.0); iSTAT Site L Radial; iSTAT Sodium 137 mmol/L (135-144)
--- NOTE | 2020-12-02 12:30 | XRay Report ---
SINGLE VIEW CHEST CLINICAL HISTORY: Dyspnea. FINDINGS: 2 AP, portable, upright chest radiographs are compared to study dated 11/30/2020. The examin ation is degraded by portable technique and patient rotation. The patient is status post midline ster notomy. The heart is enlarged noting atherosclerotic calcification of the thoracic aorta. There is pr ominence of the pulmonary vasculature. Bilateral interstitial airspace opacities are again seen bilat erally. No large pleural effusion or pneumothorax is identified. The skeletal structures are osteopen ic. The bony thorax is grossly intact. IMPRESSION: 1. Cardiomegaly with prominence of the pulmonary vasculature. 2. Interstitial airspace opacities are again seen bilaterally and unchanged as compared to previous. ACT 112: Negative or not required by law. Electronically signed by: Shubham Lindsey M.D. 12/02/2020 12:28 PM
--- NOTE | 2020-12-02 14:30 | Pharmacy Report ---
Pharmacy Glycemic Short Note 2 - Date of Service December 02, 2020 - Glycemic Short BSG Results (Last 24 hours): 12/01/20 12/01/20 12/01/20 16:28 16:31 20:32 Glucose POC Glucose 433 H* 419 H* 271 H 12/02/20 12/02/20 12/02/20 00:24 04:27 06:32 Glucose 63 L POC Glucose 189 H 90 12/02/20 12/02/20 12/02/20 07:53 07:54 08:20 Glucose POC Glucose 66 L* 65 L* 79 12/02/20 12:06 Glucose POC Glucose 89 OUTPATIENT ANTIDIABETIC REGIMEN: * glimepiride 1 mg po daily * A1c 8.8% 09/2020 ASSESSMENT: * Patient admitted with increased shortness of breath/COVID. Started on IV dexamethasone. Type 2 diabetic with hx of CAD, htn. * Pharmacy consulted for glycemic management. Received consult last evening as BSGs in 400s * Patient received total of 86 units of insulin yesterday, of which 40 units were Lantus. * Fasting BSG low at 65 mg/dL - no symptoms of hypoglycemia per notes. Received IV dexamethasone dose this AM * Held AM basal insulin as likely we are still seeing effects from dose of Lantus given last night with dinner * Lunch BSG still on lower end of range at 89 mg/dL - will continue to hold further basal for now. PO intake is none PLAN FOR INPATIENT GLYCEMIC CONTROL: * Hold outpatient oral diabetes medications * Basal insulin * Lantus - hold * NPH - may need to add for tomorrow AM 12/03 * Bolus insulin * NovoLog per scale ACHS or Q6hrs while NPO * Goal Range: Low 110 mg/dL - High 140 mg/dL * Correction Factor: 25 mg/dL/unit * Nutritional / Prandial insulin per carb ratio of 1 unit per 9 grams CHO consumed PLAN FOR DISCHARGE: * tbd
[2020-12-02 14:35] LABS: Albumin Level 2.5 gm/dl (3.4-5.0); BUN Creatinine Ratio 29.8 (10-20); Calcium 8.8 mg/dl (8.5-10.1); Creatinine Clr Calc Pharmacy 22.3 ml/min; Est GFR (African American) 23.2 ml/min; Est GFR (Non-African American) 20.1 ml/min; Potassium 5.1 mmol/L (3.5-5.1)
[2020-12-02 14:36] LABS: Albumin Globulin Ratio 0.6 (0.9-2); Bilirubin,Total 0.5 mg/dl (0.2-1); Total Protein 6.5 gm/dl (6.4-8.2)
--- NOTE | 2020-12-02 15:29 | Pulmonology Progress Note ---
Date of Service December 02, 2020 Assessment & Plan (1) Pneumonia due to COVID-19 virus: 70-year-old female with a history of coronary artery bypass grafting, hypertension, obesity, diabetes mellitus type 2 and hyperlipidemia who presented to the hospital due to lethargy and shortness of breath. Hypoxia: This is secondary to COVID-19 pneumonia. Possible component of congestive heart failure given her history of coronary artery bypass grafting and interstitial findings on chest x-ray. Recommend as needed diuretic therapy with Lasix. CRP elevated to 1.98 mg/dL. Ferritin elevated as well. Levels would not qualify her for tocilizumab therapy at this time. We will recheck jayme orr morning. Acute kidney injury: Consider nephrology consultation. BUN is elevated which may be contributing to her altered mental status. Lactate was minimally elevated to 2.4 which may be related to tissue hypoxemia and increased work of breathing. Follow BMP daily. Acute encephalopathy: Likely secondary to hypoxia and possibly related to elevated BUN. Low threshold for ICU transfer. We will continue to follow along with you. Please call with questions. (2) Hypoxia: (3) CAD (coronary artery disease): (4) Encephalopathy: (5) Acute kidney injury: Admission and Anticipated Discharge Date Admission Date: November 30, 2020 Subjective Physical exam and history was deferred due to the COVID-19 protocol. Patient was seen through the window of the door. Discussed with the patient's nurse and respiratory therapist. She has had increasing oxygen demands and increased work of breathing. She was noted to be lethargic by nursing staff. Review of Systems Review of Systems: Deferred due to the COVID-19 pandemic. Please refer to the hospitalist progress note. Physical Exam Physical Exam: Please refer to the hospitalist progress note. Results & Data Results & Data ([facility]) Vital Signs (Past 12 Hours) Vital Signs Temp Pulse Pulse Pulse Resp BP Pulse Ox 12/02/20 13:42 79 22 93 12/02/20 13:16 94 H 20 90 12/02/20 12:08 99.5 F 96 H 26 H 126/78 91 12/02/20 08:00 87 12/02/20 07:58 98.6 F 105 H 26 H 135/57 L 90 12/02/20 07:11 92 H 20 93 12/02/20 04:00 98.2 F 81 21 126/72 91 vital signs, labs and imaging reviewed. Continues on high flow nasal cannula. Creatinine stable. PG Care Time/CCT Total # of Minutes Spent Total Time Spent with Patient: Total time spent is greater than 50% in coordination of care (as documented) at patient's floor/unit and/or counseling patient: Coding Level of Care Code 85797 Subseq Hosp Care Lvl 2 Diagnoses Pneumonia due to COVID-19 virus U07.1; J12.82 Hypoxia R09.02 CAD (coronary artery disease) I25.10 Encephalopathy G93.40 Acute kidney injury N17.9 Time Spent (min) 25
--- NOTE | 2020-12-02 17:49 | Hospitalist Progress Note ---
Date of Service December 02, 2020 Assessment & Plan (1) Hypoxia: (2) Pneumonia due to COVID-19 virus: Present on admission worsening shortness of breath COVID-19 tested positive CXR showed cardiomegaly with pulmonary vascular congestion. Interstitial airspace opacities are seen bilaterally. Started on Dexamethasone 6mg IV daily, will continue Remdesivir did not start due to poor renal function Pt was started on heparin drip since unable to get a CTA chest to r/o PE Hypoxia moslty due to COVID 19. Doubt of PE since no tachycardia and CXR showed infiltrate mostly from COVID 19 Pulm consulted Heparin drip was discontinued Currently on Cpap with 100% oxygen D-dimer 1150, CRP 1.98, Ferritin 945 and ESR 43 Will continue IV dexamethasone Case discussed with the Temporary Administrative Assistant might consider to give a low dose of Lasix 20mg IV x1 Case discussed with her Daughter Petra ( ) and answered all her questions Daughter said that pt is FULL code Will transfer to the ICU to monitor closely ADONIS Mostly due to acute illness CT showed no urinary calculi or hydronephrosis. Moderate left and mild right renal atrophy with nonspecific bilateral perinephric stranding. Creatinine slight decreased to 2.3 Will consult nephrology Avoid nephrotoxic agent Continue monitor BMP Elevated Lactic acid Mostly due to Hypoxia lactate 2.4 and procalcitonin normal Blood cx no growth Will hold on any abx for now Metabolic encephalopathy Mostly related to acute illness/COVID 19 CT head showed no acute intracranial abnormality Clinically improves CAD Denies any chest Continue aspirin and statin Diabetes We will check an A1c Continue insulin sliding with NovoLog and Lantus Pharmacy consulted for glycemic management Continue monitor blood sugar DVT px Discontinue heparin started on subcu heparin CODE status full code Disposition Transfer to the ICU . Admission and Anticipated Discharge Date Admission Date: November 30, 2020 Subjective Patient was seen and examined for shortness of breath due to Covid 19 Lying in bed with acute respiratory distress. Pt has been on high flow oxygen When I saw her early, she said that her breathing was better on the high flow Later in the afternoon nurse called and said pt was desaturated on high while sleeping She was placed on Cpap with 100% oxygen and transferred to the ICU I tried to call the daughter, but unfortunately the only number that was listed was her sister Federica who is also in the ICU for COVID 19 Her sister was able to provided us with the daughter's number Case discussed with Daughter Petra and provided with updates, answered all her questions Review of Systems Review of Systems: All systems reviewed & are unremarkable except as noted in Subjective Physical Exam Physical Exam: General- No acute distress Head- atraumatic Eyes- PERRL, EOMI, ENT- oropharynx clear Neck- supple, no JVD Lungs-no wheezing Heart- regular rhythm; no murmur Abdomen- normal bowel sounds, soft, nontender Extremities- no calf tenderness Neuro- alert, awake PERRL, EOMI; no facial palsy; no dysarthria Skin- warm & dry Results & Data Results & Data ([facility]) Vital Signs (Past 12 Hours) Vital Signs Temp Pulse Pulse Pulse Resp BP Pulse Ox 12/02/20 15:43 37.5 C 92 H 23 131/68 97 12/02/20 15:25 92 H 20 91 12/02/20 13:42 79 22 93 12/02/20 13:16 94 H 20 90 12/02/20 12:08 37.5 C 96 H 26 H 126/78 91 12/02/20 08:00 87 12/02/20 07:58 37.0 C 105 H 26 H 135/57 L 90 12/02/20 07:11 92 H 20 93
[2020-12-02] MEDS ORDERED: FUROSEMIDE 40 MG in SYRINGE 0 ML IV ONE (19:46)
[2020-12-02] MEDS ORDERED: dexAMETHasone 20 MG in SYRINGE 0 ML IV SCH (20:00)
[2020-12-02] MEDS ORDERED: dexAMETHasone 20 MG in DEXTROSE 5% 25 ML IV SCH (20:00)
[2020-12-02] MEDS ORDERED: dexAMETHasone 40 MG in SYRINGE 0 ML IV SCH (20:00)
--- NOTE | 2020-12-02 20:07 | Critical Care Progress Note ---
Date of Service December 02, 2020 Assessment & Plan (1) Pneumonia due to COVID-19 virus: 70-year-old female with a history of coronary artery bypass grafting, hypertension, obesity, diabetes mellitus type 2 and hyperlipidemia who presented to the hospital due to lethargy and shortness of breath. Hypoxia: This is secondary to COVID-19 pneumonia. Possible component of congestive heart failure given her history of coronary artery bypass grafting and interstitial findings on chest x-ray. We will give a dose of 40 mg IV Lasix. We will also start her on the DEXA ARDS Decadron protocol with 20 mg of Decadron for 5 days followed by 10 mg of Decadron for 5 days. We will start her on IV Protonix while on Decadron. CRP elevated to 1.98 mg/dL. Ferritin elevated as well. Levels would not qualify her for tocilizumab therapy at this time. We will recheck tomorrow morning. She does not qualify for remdesivir due to her acute kidney injury. Acute kidney injury: Nephrology consultation has been placed. We will place a Ulrich catheter. CT abdomen pelvis completed on 11/30/2020 without evidence of acute findings. Moderate left and mild right renal atrophy was noted. Obtain urine analysis. BUN is elevated which may be contributing to her altered mental status. Lactate was minimally elevated to 2.4 which may be related to tissue hypoxemia and increased work of breathing. Follow BMP daily. Follow urine output closely. IV Lasix will be administered as noted above. Acute encephalopathy: Likely secondary to hypoxia and possibly related to elevated BUN. Patient's daughter Petra was updated over the phone. Her phone number is [phone]. Her son's phone number Eduard is [phone]. Patient will remain a full code at this time as per the patient's wishes. CRITICAL CARE TIME - I have personally spent 45 minutes of critical care time in the direct management of this patient. This is a life/limb threatening event. This includes time spent evaluating patient, direct bedside care, chart review, placing orders, interpretation of diagnostic studies, discussion with consultants, patient, and family members, as well as other required patient management activities. This time is exclusive of all separately billable procedures, and teaching time and separate from and in addition to any other critical care service time. (2) Hypoxia: (3) CAD (coronary artery disease): (4) Encephalopathy: (5) Acute kidney injury: Admission and Anticipated Discharge Date Admission Date: November 30, 2020 Subjective I was called by nursing due to worsening hypoxia. I asked the patient to be transferred down to the ICU for closer monitoring. Patient was placed on CPAP with the EPAP pressure of 12 cm H2O. Her oxygen saturations improved to 95% on 100% BiPAP support. I asked for the BiPAP. We removed and for the patient to be placed on high flow nasal cannula given that the patient is very hard of hearing and to further facilitate conversation. The patient notes that she is short of breath. She is also fatigued. She is able to relate to me that she is currently in a hospital and that she has COVID-19 illness. She is unsure of which hospital she is in. She is aware of the years 2020. She does appear to be intermittently confused at times. Her hemodynamics are stable at present. I updated the patient's sister regarding her condition. Her sister is actually currently hospitalized for COVID-19 illness as well. I also called the patient's daughter Petra on the phone to update her regarding the patient's condition. Review of Systems Review of Systems: All systems reviewed & are unremarkable except as noted in HPI & below Physical Exam Constitutional: + obese and + disheveled Respiratory: + respiratory distress and + tachypneic Auscultation: + diminished lung sounds Cardiovascular: RRR, no murmur, no edema Gastrointestinal (Abdomen): normal bowel sounds, soft, nontender, no hepatosplenomegaly Musculoskeletal: no cyanosis or clubbing, extremities motor strength 5/5 Skin: no rashes, warm and dry Neurologic: PERRL, EOMI, accommodation nl, no face palsy, no dysarthria Psychiatric: A+Ox3, euthymic affect Results & Data Results & Data ([facility]) Vital Signs (Past 12 Hours) Vital Signs Temp Pulse Pulse Pulse Resp BP Pulse Ox 12/02/20 19:04 80 24 96 12/02/20 15:43 99.5 F 92 H 23 131/68 97 12/02/20 15:25 92 H 20 91 12/02/20 13:42 79 22 93 12/02/20 13:16 94 H 20 90 12/02/20 12:08 99.5 F 96 H 26 H 126/78 91 vital signs, labs and imaging reviewed Coding Level of Care Code Critical Care 1st 30-74 mins Diagnoses Pneumonia due to COVID-19 virus U07.1; J12.82 Hypoxia R09.02 CAD (coronary artery disease) I25.10 Encephalopathy G93.40 Acute kidney injury N17.9 Time Spent (min) 45
[2020-12-02 22:20] LABS: Appearance Urine Clear (Clear); Bacteria Urine Automated Negative (Negative); Bilirubin Urine Negative (Negative); Blood Urine Negative (Negative); Color Urine Yellow; Glucose Urine UA Negative (Negative); Ketones Urine Negative (Negative); Leukocyte Esterase Urine Negative (Negative); Nitrite Urine Negative (Negative); Protein Urine Trace (Negative); RBC Urine Automated 0-4 /hpf (0-4); Specific Gravity Urine 1.018 (1.000-1.030); Urobilinogen Urine Negative (Negative)
[2020-12-03] MEDS: LEVALBUTEROL TARTRATE 15 GM HFA.AER.AD INH SCH ×5 (01:44→23:58)
[2020-12-03 05:21] LABS: Hematocrit (blood only) 41.5 % (37-47); Hemoglobin 14.3 g/dL (12.0-16.0); Mean Corpuscular Hemoglobin 27.8 pg (25-34); Mean Corpuscular Hgb Conc 34.5 g/dL (32-36); Mean Corpuscular Volume 80.7 fL (80-100); Mean Platelet Volume 10.5 fL (7.4-10.4); Platelet Count 237 K/uL (130-400); RDW Coefficient of Variation 13.4 % (11.5-14.5); Red Blood Count 5.14 M/uL (4.2-5.4); White Blood Count 6.29 K/uL (4.8-10.8)
[2020-12-03 05:29] LABS: BUN Creatinine Ratio 28.1 (10-20); Calcium 8.3 mg/dl (8.5-10.1); Creatinine Clr Calc Pharmacy 23.1 ml/min; Est GFR (African American) 24.2 ml/min; Est GFR (Non-African American) 20.9 ml/min; Potassium 4.9 mmol/L (3.5-5.1)
[2020-12-03 05:33] LABS: C Reactive Protein 5.51 mg/dl (0-0.29); Ferritin 935.7 ng/ml (8-388)
[2020-12-03] MEDS: HEPARIN SOD 5,000 UNIT/0.5 ML VIAL SQ SCH ×3 (06:11→21:14)
[2020-12-03 06:48] LABS: D Dimer 1030 ug/L FEU (0-500)
[2020-12-03] MEDS ORDERED: INSULIN GLARGINE SOLOSTAR 100 UNITS/ML 3 ML PEN SC SCH (08:00)
[2020-12-03] MEDS ORDERED: FUROSEMIDE 40 MG in SYRINGE 0 ML IV ONE (08:00)
[2020-12-03] MEDS: guaiFENesin 600 MG TABCR PO SCH ×2 (08:12→21:11)
[2020-12-03] MEDS: amLODIPine BESYLATE 5 MG TAB PO SCH (08:12)
[2020-12-03] MEDS: ROSUVASTATIN CALCIUM 5 MG TAB PO SCH (08:12)
[2020-12-03] MEDS: ASPIRIN 81 MG ECTAB PO SCH (08:12)
[2020-12-03] MEDS: INSULIN ASPART 100 UNITS/ML 3 ML PEN SC SCH ×5 (08:37→23:55)
--- NOTE | 2020-12-03 10:02 | Pharmacy Report ---
Pharmacy Glycemic Short Note 2 - Date of Service December 03, 2020 - Glycemic Short BSG Results (Last 24 hours): 12/02/20 12/02/20 12/02/20 12:06 14:05 16:58 Glucose 135 H POC Glucose 89 121 H 12/02/20 12/03/20 12/03/20 20:30 05:01 08:17 Glucose 253 H POC Glucose 148 H 273 H OUTPATIENT ANTIDIABETIC REGIMEN: * glimepiride 1 mg po daily * A1c 8.8% 09/2020 ASSESSMENT: 12/03 * Pt transferred to ICU last evening for worsening respiratory failure * Pt given Dexamethasone 20mg IV last night (in addition to the 6mg IV given earlier in the morning) and daily Dexamethasone increased to 20mg IV Q24hrs * BSGs significantly elevated this morning at 273 mg/dl secondary to steroids. * PO intake minimal - will use peakless Lantus instead of NPH to cover steroid induced hyperglycemia * Typically, 0.4units/kg insulin given for high dose steroids; will decrease slightly to 0.35 units/kg for decreased PO intake and titrate based on BSG trends. 12/02 * Patient admitted with increased shortness of breath/COVID. Started on IV dexamethasone. Type 2 diabetic with hx of CAD, htn. * Pharmacy consulted for glycemic management. Received consult last evening as BSGs in 400s * Patient received total of 86 units of insulin yesterday, of which 40 units were Lantus. * Fasting BSG low at 65 mg/dL - no symptoms of hypoglycemia per notes. Received IV dexamethasone dose this AM * Held AM basal insulin as likely we are still seeing effects from dose of Lantus given last night with dinner * Lunch BSG still on lower end of range at 89 mg/dL - will continue to hold further basal for now. PO intake is none PLAN FOR INPATIENT GLYCEMIC CONTROL: * Hold outpatient oral diabetes medications * Basal insulin * Lantus 30 units SQ Q24hrs - give with dxm * Bolus insulin * NovoLog per scale ACHS or Q6hrs while NPO * Goal Range: Low 110 mg/dL - High 140 mg/dL * Correction Factor: 25 mg/dL/unit * Nutritional / Prandial insulin per carb ratio of 1 unit per 7 grams CHO consumed PLAN FOR DISCHARGE: * tbd
--- NOTE | 2020-12-03 10:18 | Critical Care Progress Note ---
Date of Service December 03, 2020 Assessment & Plan (1) Pneumonia due to COVID-19 virus: 70-year-old female with a history of coronary artery bypass grafting, hypertension, obesity, diabetes mellitus type 2 and hyperlipidemia who presented to the hospital due to lethargy and shortness of breath. Hypoxia: This is secondary to COVID-19 pneumonia. Possible component of congestive heart failure given her history of coronary artery bypass grafting and interstitial findings on chest x-ray. We will give an additional dose of 40 mg IV Lasix. Continue DEXA ARDS Decadron protocol with 20 mg of Decadron for 5 days followed by 10 mg of Decadron for 5 days. This was initiated on 12/02/2020. Continue IV Protonix. Pending CRP levels. She does not qualify for remdesivir due to her acute kidney injury. Acute kidney injury: Nephrology consultation has been placed. Ulrich catheter in place. CT abdomen/pelvis completed on 11/30/2020 without evidence of acute findings. Moderate left and mild right renal atrophy was noted. Urinalysis unremarkable. BUN is elevated which may be contributing to her altered mental status. Lactate was minimally elevated to 2.4 which may be related to tissue hypoxemia and increased work of breathing. Follow BMP daily. Acute encephalopathy: Likely secondary to hypoxia and possibly related to elevated BUN. CT head on 11/30/2020 was negative for acute intracranial abnormality. Patient's daughter Petra was updated over the phone. Her phone number is [phone]. Her son's phone number Eduard is [phone]. (2) Hypoxia: (3) CAD (coronary artery disease): (4) Encephalopathy: (5) Acute kidney injury: Admission and Anticipated Discharge Date Admission Date: November 30, 2020 Subjective Patient seen and examined today. She continues to be somewhat lethargic. She denies any complaint at present. No fevers or chills. She is occasionally slow to answer questions. She does not know which hospital she is in which city she is in. She knows the year and she notes that she has COVID-19 illness. She denies any chest discomfort, nausea or vomiting. She was on BiPAP therapy overnight. She is currently on 40 L of oxygen 80% FiO2. Review of Systems Review of Systems: All systems reviewed & are unremarkable except as noted in HPI & below Physical Exam Constitutional: + ill appearing and + obese Eyes: PERRL, conjunctivae normal, anicteric sclerae Respiratory: + tachypneic Auscultation: + diminished lung sounds Cardiovascular: RRR, no murmur, no edema Gastrointestinal (Abdomen): normal bowel sounds, soft, nontender, no hepatosplenomegaly Musculoskeletal: no cyanosis or clubbing, extremities motor strength 5/5 Skin: no rashes, warm and dry Neurologic: PERRL, EOMI, accommodation nl, no face palsy, no dysarthria Psychiatric: Orientation: alert, oriented to person and cooperative; + not oriented x 3 Results & Data Results & Data ([facility]) Vital Signs (Past 12 Hours) Vital Signs Temp Pulse Pulse Resp BP Pulse Ox 12/03/20 09:00 82 22 92 12/03/20 08:36 85 20 146/80 H 90 12/03/20 08:30 90 27 H 88 L 12/03/20 08:20 95 H 26 H 148/77 H 91 12/03/20 08:00 81 22 89 L 12/03/20 07:36 87 20 131/64 91 12/03/20 07:30 82 83 23 89 L 12/03/20 07:00 79 23 93 12/03/20 06:45 86 19 92 12/03/20 06:35 91 H 19 138/65 92 12/03/20 06:30 82 23 89 L 12/03/20 06:00 84 28 H 91 12/03/20 05:35 84 21 119/65 90 12/03/20 05:30 80 23 91 12/03/20 05:00 89 24 91 12/03/20 04:52 89 20 91 12/03/20 04:51 88 24 133/68 90 12/03/20 04:30 80 21 93 12/03/20 04:00 98.2 F 90 24 94 12/03/20 03:36 87 25 H 143/67 H 93 12/03/20 03:30 79 22 93 12/03/20 03:00 80 21 94 12/03/20 02:36 83 21 138/79 95 12/03/20 02:30 80 21 94 12/03/20 02:00 78 19 94 12/03/20 01:50 76 22 93 12/03/20 01:36 86 23 150/101 H 94 06/19/21 01:30 78 20 91 12/03/20 01:00 76 21 93 12/03/20 00:36 78 22 134/80 92 12/03/20 00:30 79 21 92 12/03/20 00:00 99.3 F 79 21 93 12/02/20 23:37 83 22 126/83 92 12/02/20 23:30 80 17 90 12/02/20 23:00 87 24 91 12/02/20 22:53 84 20 91 12/02/20 22:37 82 21 90 12/02/20 22:36 87 23 130/68 91 12/02/20 22:30 79 22 93 Vital signs, labs and imaging reviewed Coding Level of Care Code 72119 Subseq Hosp Care Lvl 3 Diagnoses Pneumonia due to COVID-19 virus U07.1; J12.82 Hypoxia R09.02 CAD (coronary artery disease) I25.10 Encephalopathy G93.40 Acute kidney injury N17.9
[2020-12-03] MEDS: PANTOprazole 40 MG in SYRINGE 0 ML IV SCH (10:55)
--- NOTE | 2020-12-03 11:54 | XRay Report ---
XR chest 1V portable CLINICAL HISTORY: Respiratory failure. COMPARISON STUDY: Chest radiograph December 02, 2020. FINDINGS: Median sternotomy wires are noted. Cardiomegaly is unchanged. There is no pneumothorax. No pleural effusion is noted. Lower lung interstitial thickening persists. There are bibasilar opacities . IMPRESSION: Persistent lower lung interstitial thickening and bibasilar opacities. The findings may reflect pulmonary edema or an infectious process. ACT 112: Negative or not required by law. Electronically signed by: Deshawn Corona M.D. 12/03/2020 11:53 AM
--- NOTE | 2020-12-03 15:20 | Nephrology Consultation ---
Date of Consultation December 03, 2020 Assessment & Plan (1) ADONIS (acute kidney injury): Nonoliguric acute kidney injury, stage I. Her baseline creatinine in [facility] records is 1.5-1.6 as recently as September 2020. She follows w/ me in CKD clinic (seen 2X in last 3 years though). She was 3.2 on presentation November 30. Trending downward to 2.3 today. Urine sediment bland. Renal imaging remarkable for mild left greater than right renal atrophy; no infarcts or obstruction seen. Nonspecific bilateral perinephric stranding noted. She has acceptable chemistries but remains volume overloaded in the setting of COVID-19. Not acidemic. -Daily basic metabolic panel Lasix as needed to optimize respiratory and volume status No indication for emergent dialysis Continue strict intake and output (2) Electrolyte and fluid disorder: Mild hyponatremia present since admission. Serum sodium was 137 yesterday, highest value this admission. Was 130 on presentation. Dropped to 131 this morning. Some role potentially for elevated blood sugars here. Potassium has been acceptably controlled. No prior history of outpatient/chronic hyponatremia Monitor daily Would not work-up unless significantly worsening Present on Admission?: Yes (3) Pneumonia due to COVID-19 virus: History of Present Illness Reason for Consultation: Acute kidney injury Requesting Physician: Dr. Shah Attending Physician: Yanet Shah MD History of Present Illness 70-year-old female whom I am asked to evaluate for acute kidney injury was admitted here November 30 with Covid pneumonia. Past medical history includes coronary artery disease status post CABG, hypertension, obesity, type 2 diabetes hyperlipidemia. She is currently in the tensive care unit due to hypoxic respiratory failure. Her hospital course has also been complicated by acute encephalopathy and acute kidney injury. She has not had the Covid vaccination. She recently went to [place] with her sister by air. Both women are currently admitted here with Covid. RN reports that patient had worsening hardness of hearing and lethargy for about a week prior to admission. Currently requiring 40 L of 80% FiO2. She is getting Decadron per protocol. She received Lasix 40 mg IV this morning and also yesterday. Her baseline creatinine in May 2018 was 1.2. Creatinine was 3.2 when she presented this admission; with gradual downtrend to 2.3 today. She had Lasix both yesterday and today Allergies Allergy/AdvReac Type Severity Reaction Status Date / Time latex Allergy Unknown SWELLING Unverified 11/30/20 19:05 Penicillins Allergy Unknown HIGH Unverified 11/30/20 19:05 FEVER, RED BUMPS ON FACE. Home Medications Medication Instructions Recorded Confirmed Type amlodipine 5 mg PO QAM 06/02/18 11/30/20 History aspirin [Aspirin Low Dose] 81 mg PO QAM 06/02/18 11/30/20 History cholecalciferol (vitamin D3) 1,000 unit PO QAM 06/02/18 11/30/20 History [Vitamin D3] glimepiride 1 mg PO QAM 06/02/18 11/30/20 History hydroxyzine HCl 10 mg PO BID PRN 11/30/20 11/30/20 History lisinopril 20 mg PO DAILY 11/30/20 11/30/20 History rosuvastatin 5 mg PO DAILY 11/30/20 11/30/20 History Patient History Medical History Acute kidney injury CAD (coronary artery disease) Diabetes Diabetes mellitus, type II Encephalopathy Hypertension Surgical History S/P CABG x 3 Family History Mother Cancer Social History Smoking Status: Never smoker Hx Alcohol Use: No Hx Substance Use: No Recordist Required: No Beliefs That Will Affect Care: None Current Living Situation: Family Other Information That Helps Us Care for You: No Feels Safe at Home: Yes Safety Concerns: Feels Safe At This Time Assistive Devices: Oxygen - Continuous Review of Systems Review of Systems: Review of systems limited by patient mental status: She is somewhat confused and has a hard time hearing me Musculoskeletal: + myalgia (When I palpate ankles and pretibial area bilaterally, she is tender) Neurologic: + headache(s) Physical Exam Constitutional: well developed, well nourished, + altered mental status, cooperative and + lethargic; no acute distress Eyes: EOM intact bilaterally ENMT: Ears: + hearing impairment; no external ear abnormality Nose: no external nose abnormality Mouth: + dry oral mucous membranes Neck: no nuchal rigidity Respiratory: able to speak in complete sentences and + paradoxical thoraco- abdominal movement Auscultation: + diminished lung sounds and + wheezes Cardiovascular: Rate/Rhythm: regular rhythm and + tachycardic Extremities: no edema Gastrointestinal (Abdomen): Inspection/Auscultation: normal bowel sounds Percussion/Palpation: abdomen soft; abdomen nontender Musculoskeletal: Extremities: strength 5/5 throughout and + abnormal strength (Generalized weakness) Skin: no rashes, warm and dry Neurologic: calderon, fluent but limited speech, no tremor Psychiatric: Orientation: alert, oriented to person and oriented to place Genitourinary: Ulrich with ample light yellow urine Results & Data ([facility]) Vital Signs (Past 12 Hours) Vital Signs Temp Pulse Pulse Resp BP Pulse Ox 12/03/20 11:50 85 20 92 12/03/20 09:00 82 22 92 12/03/20 08:36 85 20 146/80 H 90 12/03/20 08:30 90 27 H 88 L 12/03/20 08:20 95 H 26 H 148/77 H 91 12/03/20 08:00 81 22 89 L 12/03/20 07:36 87 20 131/64 91 12/03/20 07:30 82 83 23 89 L 12/03/20 07:00 79 23 93 12/03/20 06:45 86 19 92 12/03/20 06:35 91 H 19 138/65 92 12/03/20 06:30 82 23 89 L 12/03/20 06:00 84 28 H 91 12/03/20 05:35 84 21 119/65 90 12/03/20 05:30 80 23 91 12/03/20 05:00 89 24 91 12/03/20 04:52 89 20 91 12/03/20 04:51 88 24 133/68 90 12/03/20 04:30 80 21 93 12/03/20 04:00 36.8 C 90 24 94 12/03/20 03:36 87 25 H 143/67 H 93 12/03/20 03:30 79 22 93 Laboratory Results 12/03/20 05:01 12/03/20 05:01 Urinalysis last evening: Clear yellow urine specific gravity 1018 with trace protein at a pH of 5. 10-20 epithelial cells per low powered field; all other indices negative ABG yesterday 11 AM: pH 7.48, PCO2 23, PO2 41, bicarb 17 Apart from Covid assay, other viral PCR and blood and urine cultures from admission all negative Diagnostic Findings Chest x-ray this a.m. IMPRESSION: Persistent lower lung interstitial thickening and bibasilar opacities. The findings may reflect pulmonary edema or an infectious process. CT abdomen pelvis noncontrast from admission FINDINGS: Subpleural airspace opacities are noted within the lower lungs, most pronounced within the visualized right upper lobe. Lungs are suboptimally assessed due to respiratory motion. No pneumatosis, free air or portal venous gas is present. Cardiomegaly is noted. There is a small hiatal hernia. Low- attenuation bilateral adrenal nodules are unchanged. These reflect adenomas. There are gallstones within the gallbladder. Evaluation of the gallbladder is mildly compromised by motion artifact. Hepatic steatosis is noted. Unenhanced images of the spleen and pancreas are unremarkable. There is no evidence for a bowel obstruction. The appendix is normal. Colonic diverticulosis is noted without evidence for acute diverticulitis. No urinary calculi are present. There is no hydronephrosis. A right-sided parapelvic cyst is noted. Bladder is mildly distended. Moderate left and mild right renal atrophy is noted. Bilateral perinephric stranding and fluid is nonspecific. No acute fracture is noted within visualized skeletal structures. IMPRESSION: 1. No urinary calculi or hydronephrosis. Moderate left and mild right renal atrophy with nonspecific bilateral perinephric stranding. 2. Airspace opacities within the lower lungs. The findings could reflect an infectious process, pulmonary edema or interstitial lung disease. 3. Cholelithiasis. If right upper quadrant pain, ultrasound is recommended. 4. Hepatic steatosis.
[2020-12-03] MEDS: dexAMETHasone 20 MG in DEXTROSE 5% 25 ML IV SCH (16:38)
--- NOTE | 2020-12-03 17:28 | Hospitalist Progress Note ---
Date of Service December 03, 2020 Assessment & Plan (1) Hypoxia: (2) Pneumonia due to COVID-19 virus: Present on admission worsening shortness of breath COVID-19 tested positive CXR showed cardiomegaly with pulmonary vascular congestion. Interstitial airspace opacities are seen bilaterally. Started on Dexamethasone 6mg IV daily, will continue Remdesivir did not start due to poor renal function Pt was started on heparin drip since unable to get a CTA chest to r/o PE Hypoxia moslty due to COVID 19. Doubt of PE since no tachycardia and CXR showed infiltrate mostly from COVID 19 Pulm consulted Heparin drip was discontinued Currently on Cpap with 100% oxygen D-dimer 1150, CRP 1.98, Ferritin 945 and ESR 43 Will continue IV dexamethasone Case discussed with the [facility] Worker might consider to give a low dose of Lasix 20mg IV x1 Case discussed with her Daughter Petra ( ) and answered all her questions Daughter said that pt is FULL code Will transfer to the ICU to monitor closely 12/03 Continue to require high flow oxygen Lasix IV 40mg given and Decadron increased Inflammatory marker: CRP increase to 5.51. ferritin (935), D-Dimer ( 1030), ESR (42) slightly decreased. Continue monitor in the ICU ADONIS Mostly due to acute illness CT showed no urinary calculi or hydronephrosis. Moderate left and mild right renal atrophy with nonspecific bilateral perinephric stranding. Creatinine slight decreased to 2.2 Nephrology on board Avoid nephrotoxic agent Continue monitor BMP while received IV lasix Elevated Lactic acid Mostly due to Hypoxia lactate 2.4 and procalcitonin normal Blood cx no growth Lactate normalized Continue to hold on any abx for now Metabolic encephalopathy Mostly related to acute illness/COVID 19 CT head showed no acute intracranial abnormality Clinically improves CAD Denies any chest Continue aspirin and statin Diabetes We will check an A1c Continue insulin sliding with NovoLog and Lantus Pharmacy consulted for glycemic management Continue monitor blood sugar DVT px Discontinue heparin started on subcu heparin CODE status full code as per discussion with daughter Petra Disposition Continue monitor in the ICU . Admission and Anticipated Discharge Date Admission Date: November 30, 2020 Subjective Pt was seen and examined for follow up of SOB due to COVID 19 Lying in bed on high flow oxygen supplement and does not look to be in distress She said that her breathing improves Denies any chest pain, palpitation and fever Review of Systems Review of Systems: All systems reviewed & are unremarkable except as noted in Subjective Physical Exam Physical Exam: General- No acute distress Head- atraumatic Eyes- PERRL, EOMI, ENT- oropharynx clear Neck- supple, no JVD Lungs-no wheezing Heart- regular rhythm; no murmur Abdomen- normal bowel sounds, soft, nontender Extremities- no calf tenderness Neuro- alert, awake PERRL, EOMI; no facial palsy; no dysarthria Skin- warm & dry Results & Data Results & Data ([facility]) Vital Signs (Past 12 Hours) Vital Signs Pulse Pulse Resp BP Pulse Ox 12/03/20 15:21 88 20 92 12/03/20 11:50 85 20 92 12/03/20 09:00 82 22 92 12/03/20 08:36 85 20 146/80 H 90 12/03/20 08:30 90 27 H 88 L 12/03/20 08:20 95 H 26 H 148/77 H 91 12/03/20 08:00 81 22 89 L 12/03/20 07:36 87 20 131/64 91 12/03/20 07:30 82 83 23 89 L 12/03/20 07:00 79 23 93 12/03/20 06:45 86 19 92 12/03/20 06:35 91 H 19 138/65 92 12/03/20 06:30 82 23 89 L 12/03/20 06:00 84 28 H 91 12/03/20 05:35 84 21 119/65 90 12/03/20 05:30 80 23 91
[2020-12-03] MEDS ORDERED: INSULIN GLARGINE SOLOSTAR 100 UNITS/ML 3 ML PEN SQ ONE ×2 (21:00)
[2020-12-04] MEDS: INSULIN ASPART 100 UNITS/ML 3 ML PEN SC SCH ×6 (04:00→23:29)
[2020-12-04 05:06] LABS: Basophils # (auto) 0.01 K/uL (0-0.2); Basophils % (auto) 0.1 %; Hematocrit (blood only) 40.8 % (37-47); Hemoglobin 14.1 g/dL (12.0-16.0); Immature Granulocytes # (auto) 0.12 K/uL (0.00-0.02); Immature Granulocytes % (auto) 1.4 %; Lymphocytes # (auto) 0.33 K/uL (1.2-3.4); Lymphocytes % (auto) 3.9 %; Mean Corpuscular Hemoglobin 27.2 pg (25-34); Mean Corpuscular Hgb Conc 34.6 g/dL (32-36); Mean Corpuscular Volume 78.6 fL (80-100); Mean Platelet Volume 10.2 fL (7.4-10.4); Monocytes % (auto) 5.9 %; Neutrophils # (auto) 7.52 K/uL (1.4-6.5); Neutrophils % (auto) 88.7 %; Platelet Count 252 K/uL (130-400); RDW Coefficient of Variation 13.3 % (11.5-14.5); Red Blood Count 5.19 M/uL (4.2-5.4); White Blood Count 8.48 K/uL (4.8-10.8)
[2020-12-04 05:30] LABS: BUN Creatinine Ratio 30.1 (10-20); Calcium 8.6 mg/dl (8.5-10.1); Creatinine Clr Calc Pharmacy 21.8 ml/min; Est GFR (African American) 22.3 ml/min; Est GFR (Non-African American) 19.3 ml/min; Magnesium 2.2 mg/dl (1.8-2.4); Potassium 4.4 mmol/L (3.5-5.1)
[2020-12-04 05:31] LABS: Phosphorus 2.8 mg/dl (2.5-4.9)
[2020-12-04] MEDS: HEPARIN SOD 5,000 UNIT/0.5 ML VIAL SQ SCH ×3 (05:33→21:30)
[2020-12-04] MEDS: LEVALBUTEROL TARTRATE 15 GM HFA.AER.AD INH SCH ×2 (08:04→14:41)
[2020-12-04] MEDS ORDERED: RAPID SEQUENCE INDUCTION BAG ONE (08:45)
[2020-12-04] MEDS ORDERED: PROPOFOL BOLUS FROM BAG IV PRN (08:45)
[2020-12-04] MEDS ORDERED: STAT IV Infusion **Titration per Protocol STA (08:45)
[2020-12-04] MEDS ORDERED: PROPOFOL IV EMULSION 10 MG/ML 100 ML VIAL IV ONE (08:47)
[2020-12-04] MEDS ORDERED: ETOMIDATE 2 MG/ML 20 ML VIAL IV ONE (08:52)
[2020-12-04] MEDS ORDERED: INSULIN GLARGINE SOLOSTAR 100 UNITS/ML 3 ML PEN SQ SCH (09:00)
[2020-12-04] MEDS: fentaNYL DRIP 1,250 MCG/250 ML BAG IV SCH ×3 (09:30→22:49)
--- NOTE | 2020-12-04 09:53 | XRay Report ---
XR chest 1V portable HISTORY: Respiratory failure. COMPARISON: 12/03/2020. FINDINGS: No pneumothorax. Trace right pleural effusion and patchy bibasilar densities have slightly improved. The heart remains borderline enlarged. There are poststernotomy changes. Interstitial thick ening within the mid to lower lung zones persist. Suspect mild emphysema. IMPRESSION: Slight improvement in the trace right pleural effusion and patchy bibasilar densities. ACT 112: Negative or not required by law. Electronically signed by: Hossein Solano M.D. 12/04/2020 9:52 AM
--- NOTE | 2020-12-04 10:24 | XRay Report ---
XR chest 1V portable HISTORY: Status post intubation. Shortness of breath. COMPARISON: Chest 12/04/2020. FINDINGS: Endotracheal tube terminates approximately 3.3 cm from the michael. Nasogastric tube termina art below the diaphragm. The tip is not included on this study. No pneumothorax. Bibasilar interstiti al airspace opacities have slightly improved. There is a trace right pleural effusion. No evidence fo r pulmonary edema. The heart is normal in size. There are poststernotomy changes. IMPRESSION: 1. Satisfactory support line placement. 2. Slight improved aeration within the bibasilar interstitial airspace opacities. ACT 112: Negative or not required by law. Electronically signed by: Hossein Solano M.D. 12/04/2020 10:22 AM
[2020-12-04] MEDS: guaiFENesin 600 MG TABCR PO SCH ×2 (10:28→21:09)
[2020-12-04] MEDS: amLODIPine BESYLATE 5 MG TAB PO SCH (10:28)
[2020-12-04] MEDS: ROSUVASTATIN CALCIUM 5 MG TAB PO SCH (10:28)
[2020-12-04] MEDS: ASPIRIN 81 MG ECTAB PO SCH (10:28)
[2020-12-04] MEDS: propofoL 1,000 MG/100 ML VIAL IV SCH ×2 (10:35→18:42)
--- NOTE | 2020-12-04 10:37 | Procedure Note ---
Procedure Note Date of Service December 04, 2020 Note INTUBATION PROCEDURE NOTE: Dr. Florin Simpson A time-out was completed verifying correct patient, procedure, site, positioning. Patient was evaluated and required intubation for hypoxic respiratory failure. Sedative agent used: 25mg etomidate Paralysis agent used: 50 rocuronium Verbal consent was obtained from the patient and also from the patient's daughter Petra over the phone. Number of attempts: 1 The patient was prepared in the appropriate fashion. Sedation was achieved utilizing etomidate and rocuronium. The patient was easily ventilated using [id number] to achieve adequate oxygenation. A 7.5 [place]alan endotracheal tube was placed under video laryngoscope guidance to 25 cm at the lip. The stylette was removed and balloon was inflated with 10mL of air. Appropriate Colorimetric change was appreciated. Bilateral breath sounds were heard without air sounds in the abdomen. Post Intubation Chest X-ray ordered. Patient tolerated the procedure well and there were no immediate complications. Coding CPT Codes Resuscitation - Resuscitation: [id number] Endotracheal Intubation, emergency ([id number]) [facility] Procedure Codes (Charges) Resuscitation Resuscitation: 83824 Endotracheal Intubation, emergency
[2020-12-04] MEDS: dexAMETHasone 20 MG in DEXTROSE 5% 25 ML IV SCH (10:38)
--- NOTE | 2020-12-04 10:42 | Critical Care Progress Note ---
Date of Service December 04, 2020 Assessment & Plan (1) Pneumonia due to COVID-19 virus: 70-year-old female with a history of coronary artery bypass grafting, hypertension, obesity, diabetes mellitus type 2 and hyperlipidemia who presented to the hospital due to lethargy and shortness of breath. Hypoxia: This is secondary to COVID-19 pneumonia. Possible component of congestive heart failure given her history of coronary artery bypass grafting and interstitial findings on chest x-ray. Continue as needed IV Lasix. Continue DEXA ARDS Decadron protocol with 20 mg of Decadron for 5 days followed by 10 mg of Decadron for 5 days. This was initiated on 12/02/2020. Continue IV Protonix. CRP level down trended slightly to 5.22 mg/dL from 5.51 mg/dL. Given that the increased dose of Decadron is given and CRP levels Tocilizumab was not given. She does not qualify for remdesivir due to her acute kidney injury. Convalescent plasma was not given on admission due to concerns of volume overload from CHF. She had increasing oxygen demands requiring 100% FiO2 via high flow nasal cannula today. She also had increasing lethargy. Her chest x-ray appeared to have worsening atelectasis. Due to these findings, patient was emergently intubated and placed on mechanical ventilation. Neuromuscular blockade has been initiated to help improve ventilator synchrony. Continue propofol and fentanyl infusions for sedation and analgesia, respectively. Right internal jugular central line was placed. I spoke with the patient's daughter Henny who was requesting a transfer to [facility] for higher level of care. We will touch base with [facility] and pursue transfer per the family request. Acute kidney injury: Appreciate nephrology input. Currently worsening today. Ulrich catheter in place. CT abdomen/pelvis completed on 11/30/2020 without evidence of acute findings. Moderate left and mild right renal atrophy was noted. Urinalysis unremarkable. BUN is elevated which may be contributing to her altered mental status. Follow BMP daily. Acute encephalopathy: Likely secondary to hypoxia and possibly related to elevated BUN. CT head on 11/30/2020 was negative for acute intracranial abnormality. Continue Lovenox for DVT prophylaxis. Continue Protonix while on high-dose steroids. Patient's daughter Petra was updated over the phone. Her phone number is [phone]. Her son's phone number Eduard is [phone]. CRITICAL CARE TIME - I have personally spent 50 minutes of critical care time in the direct management of this patient. This is a life/limb threatening event. This includes time spent evaluating patient, direct bedside care, chart review, placing orders, interpretation of diagnostic studies, discussion with consultants, patient, and family members, as well as other required patient management activities. This time is exclusive of all separately billable procedures, and teaching time and separate from and in addition to any other critical care service time. (2) Hypoxia: (3) CAD (coronary artery disease): (4) Encephalopathy: (5) Acute kidney injury: Admission and Anticipated Discharge Date Admission Date: November 30, 2020 Subjective Patient seen and examined at bedside. She is increasing oxygen demands 100% FiO2 with flow rate of 40 L via high flow nasal cannula. She is lethargic. She endorses shortness of breath. Denies chest pain, fevers or chills. Review of Systems Review of Systems: All systems reviewed & are unremarkable except as noted in HPI & below Physical Exam Constitutional: + ill appearing and + obese Eyes: PERRL, conjunctivae normal, anicteric sclerae Respiratory: + tachypneic Auscultation: + diminished lung sounds Cardiovascular: RRR, no murmur, no edema Gastrointestinal (Abdomen): normal bowel sounds, soft, nontender, no hepatosplenomegaly Musculoskeletal: no cyanosis or clubbing, extremities motor strength 5/5 Skin: no rashes, warm and dry Neurologic: PERRL, EOMI, accommodation nl, no face palsy, no dysarthria Psychiatric: Orientation: alert, oriented to person and cooperative; + not oriented x 3 Results & Data Results & Data ([facility]) Vital Signs (Past 12 Hours) Vital Signs Temp Pulse Pulse Resp BP Pulse Ox 12/04/20 09:21 117 H 18 90 12/04/20 07:42 80 20 90 12/04/20 06:36 77 21 127/96 91 12/04/20 06:30 78 19 92 12/04/20 06:00 80 21 93 12/04/20 05:36 85 22 104/73 93 12/04/20 05:30 81 21 94 12/04/20 05:00 89 22 93 06/20/21 04:37 93 H 18 136/82 95 12/04/20 04:36 91 H 24 71/61 L 94 12/04/20 04:30 90 23 94 12/04/20 04:16 90 21 93 12/04/20 04:00 98.4 F 82 22 88 L 12/04/20 03:36 93 H 19 114/66 87 L 12/04/20 03:30 87 22 89 L 12/04/20 03:00 88 22 89 L 12/04/20 02:36 87 22 130/77 87 L 12/04/20 02:30 89 18 86 L 12/04/20 02:00 90 21 89 L 12/04/20 01:35 97 H 19 140/66 89 L 12/04/20 01:30 90 23 89 L 12/04/20 01:00 89 23 87 L 12/04/20 00:35 90 21 121/86 88 L 12/04/20 00:30 89 22 88 L 12/04/20 00:09 98.8 F 12/04/20 00:06 94 H 12/04/20 00:00 90 22 89 L 12/03/20 23:50 97 H 26 H 89 L 12/03/20 23:35 97 H 24 118/80 94 12/03/20 23:30 99 H 23 95 12/03/20 23:00 100 H 21 95 vital signs, labs and imaging are personally reviewed. Coding Level of Care Code Critical Care 1st 30-74 mins Diagnoses Pneumonia due to COVID-19 virus U07.1; J12.82 Hypoxia R09.02 CAD (coronary artery disease) I25.10 Encephalopathy G93.40 Acute kidney injury N17.9 Time Spent (min) 50
[2020-12-04] MEDS ORDERED: CISATRACURIUM BESYLATE IV SOLN 2 MG/ML 10 ML VIAL IV STA (10:57)
[2020-12-04] MEDS ORDERED: CISATRACURIUM BESYLATE 40 MG in 0.9 % SODIUM CHLORIDE 80 ML IV SCH (11:00)
[2020-12-04 11:35] LABS: iSTAT Allen Test Pass; iSTAT Art Bld Gas pCO2 Correct 38 mmHg (35-46); iSTAT Art Bld Gas pH Corrected 7.367 (7.35-7.45); iSTAT Arterial Blood Gas HCO3 22 meg/L (19-24); iSTAT Arterial Blood Gas pCO2 38 mmHg (35-46); iSTAT Arterial Blood Gas pH 7.37 (7.35-7.45); iSTAT Arterial Blood Gas pO2 75 mmHg (80-95); iSTAT Arterial Blood Gas pO2 C 75; iSTAT Carbon Dioxide 23 mmol/L (24-31); iSTAT FiO2 55 %; iSTAT Hematocrit 45 % (37-47); iSTAT Hemoglobin 15.3 g/dl (12.0-16.0); iSTAT Site L Radial; iSTAT Sodium 133 mmol/L (135-144)
--- NOTE | 2020-12-04 11:48 | Procedure Note ---
Procedure Note Date of Service December 04, 2020 Note INTERNAL JUGULAR CENTRAL LINE PROCEDURE NOTE: Procedure: Internal Jugular Central Line Placement Indication: Central Drug Administration, Poor Venous Access, Multiple Lab Draws Necessary, etc. Anesthesia: Continuous propofol and fentanyl, a line placement/8 mL lidocaine 1% Consent was verbally obtained from the patient's daughter Henny over the phone. Indication, risks, and benefits were explained at length. A time-out was completed verifying correct patient, procedure, site, positioning, and implants(s) or special equipment if applicable. Patients right neck was cleansed and draped in the typical sterile fashion using Chloraprep. The Internal Jugular Vein and Carotid Artery were identified using ultrasound. The superficial tissue was anesthetized using 8 mL of 1% lidocaine without epinephrine under direct visualization with the ultrasound. After adequate anesthetization was achieved, the Internal Jugular vein was cannulated under direct ultrasound guidance using an introducer needle on a syringe. Good venous blood return was maintained prior to removal of syringe from introducer needle. Using Seldinger Technique, a guide wire was advanced through the introducer needle without resistance. The introducer needle was removed and ultrasound images were obtained of the guide wire within the Internal Jugular Vein and saved to the patients medical record. A small incision was made in penetrating fashion at the guide wire insertion site utilizing an 11 blade scalpel. The dilator was advanced to the vessel without resistance. The dilator was exchanged for the triple lumen catheter which was advanced into the vessel without resistance. The guide wire was removed intact from the catheter without issue. Claves were placed on each catheter tip with confirmation of good blood flow from each lumen. Each port was easily flushed with sterile saline. The catheter was placed at 15 cm and [address] in place. BioPatch was applied to the catheter and a sterile Tegaderm dressing was applied over the catheter with careful attention to sterility. Patient tolerated procedure well. No immediate complications were met. Post procedure x-ray was completed, placement was appropriate and no pneumothorax was noted. Images obtained are saved for permanent record Coding CPT Codes Tubes, Drains, and Vasc Access - Tubes, Drains, and Vasc Access: [id number] Place catheter in vein superior or inferior vena cava ([id number]) Tubes, Drains, and Vasc Access - Tubes, Drains, and Vasc Access: [id number] Ultrasound Guidance For Vascular ([id number]) [facility] [place] Procedure Codes (Charges) Tubes, Drains, and Vasc Access Procedure 1: Tubes, Drains, and Vasc Access: [id number] Place catheter in vein superior or inferior vena cava Procedure 2: Tubes, Drains, and Vasc Access: [id number] Ultrasound Guidance For Vascular
--- NOTE | 2020-12-04 11:53 | Procedure Note ---
Procedure Note Date of Service December 04, 2020 Note INTUBATION PROCEDURE NOTE: Dr. Florin Simpsno A time-out was completed verifying correct patient, procedure, site, positioning. Patient was evaluated and required intubation for hypoxemic respiratory failure. Sedative agent used: 25 mg etomidate Paralysis agent used: 50 mg rocuronium Consent was obtained verbally from the patient and the patient's daughter Petra the procedure. Number of attempts: 1 The patient was prepared in the appropriate fashion. Sedation was achieved utilizing etomidate and rocuronium. The patient was easily ventilated using [id number] to achieve adequate oxygenation. A 7.5 Frisian endotracheal tube was placed under video laryngoscope guidance to 25 cm at the lip. The stylette was removed and balloon was inflated with 10mL of air. Appropriate Colorimetric change was appreciated. Bilateral breath sounds were heard without air sounds in the abdomen. Post Intubation Chest X-ray ordered and reviewed with adequate placement. Patient tolerated the procedure well and there were no immediate complications. Coding CPT Codes Resuscitation - Resuscitation: 44971 Endotracheal Intubation, emergency ([id number]) [facility] [place] [facility] [place] Codes (Charges) Resuscitation Resuscitation: 34786 Endotracheal Intubation, emergency
--- NOTE | 2020-12-04 12:24 | Hospitalist Progress Note ---
Date of Service December 04, 2020 Assessment & Plan (1) Hypoxia: (2) Pneumonia due to COVID-19 virus: Present on admission worsening shortness of breath COVID-19 tested positive CXR showed cardiomegaly with pulmonary vascular congestion. Interstitial airspace opacities are seen bilaterally. Started on Dexamethasone 6mg IV daily, will continue Remdesivir did not start due to poor renal function Pt was started on heparin drip since unable to get a CTA chest to r/o PE Hypoxia moslty due to COVID 19. Doubt of PE since no tachycardia and CXR showed infiltrate mostly from COVID 19 Pulm consulted Heparin drip was discontinued Currently on Cpap with 100% oxygen D-dimer 1150, CRP 1.98, Ferritin 945 and ESR 43 Will continue IV dexamethasone Case discussed with the Ends Breakage Clerk might consider to give a low dose of Lasix 20mg IV x1 Case discussed with her Daughter Petra ( ) and answered all her questions Daughter said that pt is FULL code Will transfer to the ICU to monitor closely 12/04 Intubated on vent support with PEEP 16, TV 350 FI02 60 Sedated with Propofol and Nimbex On decadron 10mg daily Inflammatory marker: CRP increase to 5.51. ferritin (935), D-Dimer ( 1030), ESR (42) slightly decreased. No a candidate for Remdesivir since symptoms has been going on for week and also due to renal failure Continue monitor in the ICU Daughter would like patient to transfer to [place] because she is not to happy about the care her mom is receiving at [facility] I called the transfer line in [place] and spoke with Dr. Anmol Corea said that if patient transfers to [place] the care will be the same as what she is getting at [facility] Since transfer as per family request and not because we cannot provide care to patient, [place] would like to get insurance authorization first before they can accept the patient I called to notify daughter that if insurance does not approve the transfer, she might get a hospital bill; and even though insurance approves for the transfer, that she might get a bill for the transport Case management notify and she is working on approval. Once I get the approval that i will call [place] to give auth number. Case management called and the approval department closed for today, will try again tomorrow I called infection disease in [facility] about administering Tocilizumad. Spoke to Dr. Pineda that went over the NIH guideline together. Tocilizumad usually administers within 24hr when pt admits in the ICU and require mechanical Ventilation. Our patient was intubated today after respiratory status worsening on max high flow oxygen. Also Dr. Pineda said that cut of for CRP was 75 mg/l. He does not know if that will provide any benefit on her patient. Daughter has been requested for Tocilizumad to be administered. I explained to daughter about the major risk of Tocilizumad such as GI perforation/bleeding. Daughter understood the risk and agreed for her mother to get it. ADONIS Mostly due to acute illness CT showed no urinary calculi or hydronephrosis. Moderate left and mild right renal atrophy with nonspecific bilateral perinephric stranding. Creatinine slight increased to 2.4 Will hold lasix for now Nephrology on board Avoid nephrotoxic agent Elevated Lactic acid Mostly due to Hypoxia lactate 2.4 and procalcitonin normal Blood cx no growth Lactate normalized Continue to hold on any abx for now Metabolic encephalopathy Mostly related to acute illness/COVID 19 CT head showed no acute intracranial abnormality Clinically improves CAD Denies any chest Continue aspirin and statin Diabetes We will check an A1c Continue insulin sliding with NovoLog and [employer] [facility] consulted for glycemic management Continue monitor blood sugar DVT px Discontinue heparin started on subcu heparin CODE status full code as per discussion with daughter Petra Disposition Continue monitor in the ICU . Admission and Anticipated Discharge Date Admission Date: November 30, 2020 Subjective Pt was seen and examined for follow up of SOB due to COVID 19 Intubated and sedated on vent support Daughter was not happy with the care and would like pt to transfer to [place] I called the transfer line in [place] and spoke with Dr. Anmol Corea said that if patient transfers to [place] the care will be the same as what she is getting at [facility] Since transfer as per family request and not because we cannot provide care to patient, [place] would like to get insurance authorization first before they can accept the patient I called to notify daughter that if insurance does not approve the transfer, she might get a hospital bill; and even though insurance approves for the transfer, that she might get a bill for the transport Case management notify and she is working on approval. Once I get the approval that i will call [facility] to give auth number. Review of Systems Review of Systems: All systems reviewed & are unremarkable except as noted in Subjective Physical Exam Physical Exam: General- sedated with propofol and Nimbex Head- atraumatic Eyes- PERRL, EOMI, ENT- oropharynx clear Neck- supple, no JVD Lungs-Intubated on ruby support Heart- regular rhythm; no murmur Abdomen- normal bowel sounds, soft, nontender Extremities- no calf tenderness Neuro- alert, awake PERRL, EOMI; no facial palsy; no dysarthria Skin- warm & dry Results & Data Results & Data ([facility]) Vital Signs (Past 12 Hours) Vital Signs Temp Pulse Pulse Resp BP Pulse Ox 12/04/20 11:01 110 H 20 90 12/04/20 09:21 117 H 18 90 12/04/20 07:42 80 20 90 12/04/20 06:36 77 21 127/96 91 12/04/20 06:30 78 19 92 12/04/20 06:00 80 21 93 12/04/20 05:36 85 22 104/73 93 12/04/20 05:30 81 21 94 12/04/20 05:00 89 22 93 12/04/20 04:37 93 H 18 136/82 95 12/04/20 04:36 91 H 24 71/61 L 94 12/04/20 04:30 90 23 94 12/04/20 04:16 90 21 93 12/04/20 04:00 36.9 C 82 22 88 L 12/04/20 03:36 93 H 19 114/66 87 L 12/04/20 03:30 87 22 89 L 12/04/20 03:00 88 22 89 L 12/04/20 02:36 87 22 130/77 87 L 12/04/20 02:30 89 18 86 L 12/04/20 02:00 90 21 89 L 12/04/20 01:35 97 H 19 140/66 89 L 12/04/20 01:30 90 23 89 L 12/04/20 01:00 89 23 87 L 12/04/20 00:35 90 21 121/86 88 L 12/04/20 00:30 89 22 88 L
--- NOTE | 2020-12-04 12:27 | XRay Report ---
XR chest 1V portable HISTORY: Evaluate central line placement. COMPARISON: Chest 12/04/2020. FINDINGS: Endotracheal tube terminates 3.5 cm from the michael. Nasogastric tube terminates below the diaphragm. A right jugular central venous catheter terminates at the SVC. No pneumothorax. Trace righ t pleural effusion. Patchy bibasilar densities persist. There is mild diffuse interstitial thickening . The heart is normal in size. IMPRESSION: 1. Satisfactory support line placement. No pneumothorax. 2. Patchy bibasilar densities persist. ACT 112: Negative or not required by law. Electronically signed by: Hossein Solano M.D. 12/04/2020 12:26 PM
--- NOTE | 2020-12-04 12:32 | Pharmacy Report ---
Pharmacy Glycemic Short Note 2 - Date of Service December 04, 2020 - Glycemic Short BSG Results (Last 24 hours): 12/03/20 12/03/20 12/03/20 17:09 20:39 23:52 Glucose POC Glucose 271 H 191 H 207 H 12/04/20 12/04/20 12/04/20 03:55 04:18 10:57 Glucose 153 H POC Glucose 162 H 239 H OUTPATIENT ANTIDIABETIC REGIMEN: * Glimepiride 1 mg po daily * A1c 8.8% 09/2020 ASSESSMENT: 12/04: * Leisa received a total of 68 units of insulin yesterday * 40 units basal + 28 units bolus * BSGs were uncontrolled: [phone] mg/dL * There was an overnight check at ~3 am which was 162 mg/dL. AM fasting BSG was not taken until ~1030 secondary to patient requiring intubation and central line placement. BSG at that time was 230 mg/dL. This was also post- dexamethasone administration which was switch to AM timing. * Will give 40 units of Lantus this morning. May require an addition HS scale of Lantus this evening. * Will tighten correction factor and carb ratio given hyperglycemia and change in Dexamethasone timing. * UPDATE: BSG at 1400 was 303 mg/dL. Patient was covered with 11 units of Novolog. Will add an 8 unit IV insulin bolus and start IV insulin infusion 12/03: * Pt transferred to ICU last evening for worsening respiratory failure * Pt given Dexamethasone 20mg IV last night (in addition to the 6mg IV given earlier in the morning) and daily Dexamethasone increased to 20mg IV Q24hrs * BSGs significantly elevated this morning at 273 mg/dl secondary to steroids. * PO intake minimal - will use peakless Lantus instead of NPH to cover steroid induced hyperglycemia * Typically, 0.4units/kg insulin given for high dose steroids; will decrease slightly to 0.35 units/kg for decreased PO intake and titrate based on BSG trends. 12/02: * Patient admitted with increased shortness of breath/COVID. Started on IV dexamethasone. Type 2 diabetic with hx of CAD, htn. * Pharmacy consulted for glycemic management. Received consult last evening as BSGs in 400s * Patient received total of 86 units of insulin yesterday, of which 40 units were Lantus. * Fasting BSG low at 65 mg/dL - no symptoms of hypoglycemia per notes. Received IV dexamethasone dose this AM * Held AM basal insulin as likely we are still seeing effects from dose of Lantus given last night with dinner * Lunch BSG still on lower end of range at 89 mg/dL - will continue to hold further basal for now. PO intake is none PLAN FOR INPATIENT GLYCEMIC CONTROL: * Hold outpatient oral diabetes medications * Received 40 units of Lantus and 11 units of Novolog today. * Will start IV insulin infusion with an 8 unit IV bolus x 1 followed by running at 3 units/hr PLAN FOR DISCHARGE: * To be determined
[2020-12-04 13:01] LABS: D Dimer 1080 ug/L FEU (0-500)
[2020-12-04 13:03] LABS: iSTAT Allen Test Pass; iSTAT Art Bld Gas pCO2 Correct 57 mmHg (35-46); iSTAT Art Bld Gas pH Corrected 7.242 (7.35-7.45); iSTAT Arterial Blood Gas HCO3 24 meg/L (19-24); iSTAT Arterial Blood Gas pCO2 56 mmHg (35-46); iSTAT Arterial Blood Gas pH 7.24 (7.35-7.45); iSTAT Arterial Blood Gas pO2 97 mmHg (80-95); iSTAT Arterial Blood Gas pO2 C 98; iSTAT Carbon Dioxide 26 mmol/L (24-31); iSTAT FiO2 60 %; iSTAT Hematocrit 45 % (37-47); iSTAT Hemoglobin 15.3 g/dl (12.0-16.0); iSTAT Potassium 5.3 mmol/L (3.3-5.0); iSTAT Site L Radial; iSTAT Sodium 131 mmol/L (135-144)
[2020-12-04] MEDS ORDERED: Nursing to Pharmacy Communication SCH (13:15)
[2020-12-04] MEDS ORDERED: LEVALBUTEROL HCL 1.25 MG/3 ML NEB NEB PRN (13:47)
[2020-12-04] MEDS: PANTOprazole 40 MG in SYRINGE 0 ML IV SCH ×2 (13:56→21:32)
[2020-12-04] MEDS ORDERED: INSULIN HUMAN REGULAR PER UNIT 8 UNITS in SYRINGE 7.92 ML IV ONE (14:00)
[2020-12-04] MEDS ORDERED: INSULIN REGULAR 250 UNITS in SODIUM CHLORIDE 0.9% 247.5 ML IV SCH (14:15)
[2020-12-04] MEDS ORDERED: TOCILIZUMAB 400 MG, TOCILIZUMAB 200 MG, TOCILIZUMAB 80 MG in 0.9 % SODIUM CHLORIDE 66 ML IV ONE (16:00)
[2020-12-04] MEDS ORDERED: INSULIN ASPART 100 UNITS/ML 3 ML PEN SC SCH ×2 (16:30→18:00)
--- NOTE | 2020-12-05 00:23 | Critical Care Progress Note ---
Date of Service December 05, 2020 Assessment & Plan (1) Pneumonia due to COVID-19 virus: 70-year-old female with a history of coronary artery bypass grafting, hypertension, obesity, diabetes mellitus type 2 and hyperlipidemia who presented to the hospital due to lethargy and shortness of breath. Hypoxia: This is secondary to COVID-19 pneumonia. Continue DEXA ARDS Decadron protocol with 20 mg of Decadron for 5 days followed by 10 mg of Decadron for 5 days. This was initiated on 12/02/2020. Continue IV Protonix. She does not qualify for remdesivir due to her acute kidney injury. Convalescent plasma was not given on admission due to concerns of volume overload from CHF. Neuromuscular blockade has been initiated to help improve ventilator synchrony. Continue propofol and fentanyl infusions for sedation and analgesia, respectively. Right internal jugular central line was placed. Hospitalist team facilitating transfer to tertiary per family request Continue high PEEP low FiO2, pronation again today at 1100 Acute kidney injury: Appreciate nephrology input. Currently worsening today. Ulrich catheter in place. CT abdomen/pelvis completed on 11/30/2020 without evidence of acute findings. Moderate left and mild right renal atrophy was noted. Urinalysis unremarkable. BUN is elevated which may be contributing to her altered mental status. Follow BMP daily. Acute encephalopathy: Likely secondary to hypoxia and possibly related to elevated BUN. CT head on 11/30/2020 was negative for acute intracranial abnormality. Continue Lovenox for DVT prophylaxis. Continue Protonix while on high-dose steroids. Patient's daughter: Petra: phone number is [phone]. Her son's phone number Eduard is [phone]. (2) Hypoxia: (3) CAD (coronary artery disease): (4) Encephalopathy: (5) Acute kidney injury: Admission and Anticipated Discharge Date Admission Date: November 30, 2020 Supervising Physician Co-Signing Physician Notes I have personally spent 50 minutes of critical care time in the direct management of this patient. This is a life/limb threatening event. This includes time spent evaluating patient, direct bedside care, chart review, placing orders, interpretation of diagnostic studies, discussion with consultants, patient, and/or family members regarding treatment decisions, as well as other required patient management activities. This time is exclusive of all separately billable procedures, and teaching time and separate from and in addition to any other critical care service time. Subjective Patient was returned from prone position at approximately 5 AM no overnight events otherwise Review of Systems Review of Systems: Unobtainable due to endotracheal tube Physical Exam Physical Exam: General: GCS: 3 TP Skin: Warm, dry, Head: Atraumatic Ears, nose, mouth and throat: airway obscured by endotracheal tube Cardiovascular: Normal peripheral perfusion Respiratory: Ventilator settings reviewed Gastrointestinal: Non distended Musculoskeletal: No deformity Results & Data Results & Data ([facility]) Vital Signs (Past 12 Hours) Vital Signs Temp Pulse Resp BP Pulse Ox 12/04/20 23:55 70 22 96 12/04/20 22:08 36.7 C 70 96/59 L 96 12/04/20 22:03 36.7 C 70 104/64 96 12/04/20 22:00 36.7 C 72 96 12/04/20 21:58 36.7 C 71 94/56 L 96 12/04/20 21:53 36.7 C 70 98/62 L 97 12/04/20 21:48 36.7 C 69 99/57 L 97 12/04/20 21:43 36.7 C 70 107/60 96 12/04/20 21:38 36.7 C 70 100/59 L 97 12/04/20 21:33 36.7 C 69 99/59 L 96 12/04/20 21:30 36.7 C 70 96 12/04/20 21:28 36.7 C 70 101/60 96 12/04/20 21:23 36.7 C 70 99/57 L 97 12/04/20 21:18 36.7 C 70 100/59 L 96 12/04/20 21:13 36.7 C 70 100/58 L 97 12/04/20 21:08 36.7 C 70 100/58 L 96 12/04/20 21:03 36.7 C 70 104/60 96 12/04/20 21:00 36.7 C 71 97 12/04/20 20:58 36.7 C 70 104/60 96 12/04/20 20:53 36.7 C 71 98/59 L 96 12/04/20 20:48 36.7 C 70 96/57 L 97 12/04/20 20:43 36.7 C 68 97/60 L 97 12/04/20 20:41 75 22 98 12/04/20 20:38 36.7 C 69 101/61 97 12/04/20 20:33 36.7 C 70 103/57 L 97 12/04/20 20:30 36.7 C 70 98 12/04/20 20:28 36.7 C 70 110/61 98 12/04/20 20:23 36.7 C 75 116/59 L 98 12/04/20 20:18 36.8 C 71 100/64 99 12/04/20 20:13 36.8 C 71 101/59 L 98 12/04/20 20:08 36.8 C 71 96/59 L 98 12/04/20 20:03 36.8 C 72 95/61 L 98 12/04/20 20:00 36.8 C 72 98 12/04/20 19:58 36.8 C 72 94/62 L 98 12/04/20 19:53 36.7 C 72 98/56 L 98 12/04/20 19:48 76 106/80 97 12/04/20 19:43 72 96/60 L 97 12/04/20 19:38 71 107/63 98 12/04/20 19:33 73 100/65 99 12/04/20 19:30 73 99 12/04/20 19:28 72 102/60 99 12/04/20 19:23 73 104/62 98 12/04/20 19:18 75 109/64 99 12/04/20 19:13 75 103/68 99 12/04/20 19:08 74 103/61 99 12/04/20 19:03 75 106/56 L 99 12/04/20 19:00 74 99 12/04/20 18:58 74 104/62 99 12/04/20 18:53 74 97/69 L 99 12/04/20 18:48 75 102/65 99 12/04/20 18:45 73 99 12/04/20 18:00 77 96/65 L 98 12/04/20 17:00 79 96/57 L 99 12/04/20 16:00 36.4 C L 84 102/60 98 12/04/20 14:00 93 H 22 95/67 L 94 12/04/20 13:50 94 H 22 97 Laboratory Results 12/05/20 12/05/20 12/05/20 Range/Units 10:48 08:13 04:31 WBC (4.8-10.8) K/uL RBC (4.2-5.4) M/uL Hgb (12.0-16.0) g/dL POC Hgb (12.0-16.0) g/dl Hct (37-47) % POC Hct (37-47) % MCV (80-100) fL MCH (25-34) pg MCHC (32-36) g/dL RDW Std Deviation (36.4-46.3) fL RDW Coeff of Frank (11.5-14.5) % Plt Count (130-400) K/uL MPV (7.4-10.4) fL Immature Gran % (Auto) % Neut % (Auto) % Lymph % (Auto) % [place] % (Auto) % Eos % (Auto) % Baso % (Auto) % Neut # (Auto) (1.4-6.5) K/uL Lymph # (Auto) (1.2-3.4) K/uL [place] # (Auto) (0.11-0.59) K/uL Eos # (Auto) (0-0.5) K/uL Baso # (Auto) (0-0.2) K/uL Immature Gran # (Auto) (0.00-0.02) K/uL D-Dimer (0-500) ug/L FEU Sample Site POC pH (7.35-7.45) POC pCO2 (35-46) mmHg POC pO2 (80-95) mmHg POC HCO3 (19-24) fan/L POC Total CO2 (24-31) mmol/L POC Base Excess (-9-1.8) fan/L ABG pH (Temp Correct) (7.35-7.45) ABG pCO2 (Temp Corrct (35-46) mmHg POC ABG pO2 at Pt Temp POC ABG O2 Sat (90-95) % Micah Test O2 Delivery Device POC O2 Rate Minute Ventilation POC FiO2 % Tidal Volume PEEP POC Sodium (135-144) mmol/L Sodium 134 L (136-145) mmol/L POC Potassium (3.3-5.0) mmol/L Potassium 4.8 (3.5-5.1) mmol/L Chloride 102 (98-107) mmol/L Carbon Dioxide 25 (21-32) mmol/L Anion Gap 7.0 (3-11) BUN 92 H (7-18) mg/dl Creatinine 3.20 H D (0.6-1.2) mg/dl Est Cr Clr Drug Dosing 16.4 ml/min Est GFR ( Amer) 16.1 ml/min Est GFR (Non-Af Amer) 13.9 ml/min BUN/Creatinine Ratio 28.9 H (10-20) Glucose 131 H (70-99) mg/dl POC Glucose 168 H 153 H (70-99) mg/dl Estimat Average Glucose mg/dl Hemoglobin A1c (4.5-5.6) % Calcium 7.9 L (8.5-10.1) mg/dl Phosphorus 5.6 H D (2.5-4.9) mg/dl Magnesium 2.6 H (1.8-2.4) mg/dl Troponin I (0-0.045) ng/ml Procalcitonin (0-0.5) ng/ml Nasal Screen MRSA (PCR) (Negative) 12/05/20 12/05/20 12/05/20 Range/Units 04:31 04:14 03:43 WBC 10.04 (4.8-10.8) K/uL RBC 5.09 (4.2-5.4) M/uL Hgb 14.1 (12.0-16.0) g/dL POC Hgb 12.9 (12.0-16.0) g/dl Hct 41.0 (37-47) % POC Hct 38 (37-47) % MCV 80.6 (80-100) fL MCH 27.7 (25-34) pg MCHC 34.4 (32-36) g/dL RDW Std Deviation 39.2 (36.4-46.3) fL RDW Coeff of Frank 13.2 (11.5-14.5) % Plt Count 261 (130-400) K/uL MPV 10.4 (7.4-10.4) fL Immature Gran % (Auto) 1.7 % Neut % (Auto) 88.2 % Lymph % (Auto) 7.4 % [place] % (Auto) 2.7 % Eos % (Auto) 0.0 % Baso % (Auto) 0.0 % Neut # (Auto) 8.86 H (1.4-6.5) K/uL Lymph # (Auto) 0.74 L (1.2-3.4) K/uL [place] # (Auto) 0.27 (0.11-0.59) K/uL Eos # (Auto) 0.00 (0-0.5) K/uL Baso # (Auto) 0.00 (0-0.2) K/uL Immature Gran # (Auto) 0.17 H (0.00-0.02) K/uL D-Dimer (0-500) ug/L FEU Sample Site L Radial POC pH 7.40 (7.35-7.45) POC pCO2 39 (35-46) mmHg POC pO2 86 (80-95) mmHg POC HCO3 24 (19-24) fan/L POC Total CO2 25 (24-31) mmol/L POC Base Excess -1.0 (-9-1.8) fan/L ABG pH (Temp Correct) 7.404 (7.35-7.45) ABG pCO2 (Temp Corrct 38 (35-46) mmHg POC ABG pO2 at Pt Temp 83 POC ABG O2 Sat 97.0 H (90-95) % Micah Test Pass O2 Delivery Device Ventilator POC O2 Rate 22 Minute Ventilation POC FiO2 50 % Tidal Volume 350 PEEP 10 POC Sodium 134 L (135-144) mmol/L Sodium (136-145) mmol/L POC Potassium 4.7 (3.3-5.0) mmol/L Potassium (3.5-5.1) mmol/L Chloride (98-107) mmol/L Carbon Dioxide (21-32) mmol/L Anion Gap (3-11) BUN (7-18) mg/dl Creatinine (0.6-1.2) mg/dl Est Cr Clr Drug Dosing ml/min Est GFR ( Amer) ml/min Est GFR (Non-Af Amer) ml/min BUN/Creatinine Ratio (10-20) Glucose (70-99) mg/dl POC Glucose 128 H (70-99) mg/dl Estimat Average Glucose mg/dl Hemoglobin A1c (4.5-5.6) % Calcium (8.5-10.1) mg/dl Phosphorus (2.5-4.9) mg/dl Magnesium (1.8-2.4) mg/dl Troponin I (0-0.045) ng/ml Procalcitonin (0-0.5) ng/ml Nasal Screen MRSA (PCR) (Negative) 12/04/20 12/04/20 12/04/20 Range/Units 23:00 21:35 20:26 WBC (4.8-10.8) K/uL RBC (4.2-5.4) M/uL Hgb (12.0-16.0) g/dL POC Hgb (12.0-16.0) g/dl Hct (37-47) % POC Hct (37-47) % MCV (80-100) fL MCH (25-34) pg MCHC (32-36) g/dL RDW Std Deviation (36.4-46.3) fL RDW Coeff of Frank (11.5-14.5) % Plt Count (130-400) K/uL MPV (7.4-10.4) fL Immature Gran % (Auto) % Neut % (Auto) % Lymph % (Auto) % [place] % (Auto) % Eos % (Auto) % Baso % (Auto) % Neut # (Auto) (1.4-6.5) K/uL Lymph # (Auto) (1.2-3.4) K/uL [place] # (Auto) (0.11-0.59) K/uL Eos # (Auto) (0-0.5) K/uL Baso # (Auto) (0-0.2) K/uL Immature Gran # (Auto) (0.00-0.02) K/uL D-Dimer (0-500) ug/L FEU Sample Site POC pH (7.35-7.45) POC pCO2 (35-46) mmHg POC pO2 (80-95) mmHg POC HCO3 (19-24) fan/L POC Total CO2 (24-31) mmol/L POC Base Excess (-9-1.8) fan/L ABG pH (Temp Correct) (7.35-7.45) ABG pCO2 (Temp Corrct (35-46) mmHg POC ABG pO2 at Pt Temp POC ABG O2 Sat (90-95) % Micah Test O2 Delivery Device POC O2 Rate Minute Ventilation POC FiO2 % Tidal Volume PEEP POC Sodium (135-144) mmol/L Sodium (136-145) mmol/L POC Potassium (3.3-5.0) mmol/L Potassium (3.5-5.1) mmol/L Chloride (98-107) mmol/L Carbon Dioxide (21-32) mmol/L Anion Gap (3-11) BUN (7-18) mg/dl Creatinine (0.6-1.2) mg/dl Est Cr Clr Drug Dosing ml/min Est GFR ( Amer) ml/min Est GFR (Non-Af Amer) ml/min BUN/Creatinine Ratio (10-20) Glucose (70-99) mg/dl POC Glucose 102 H 125 H 179 H (70-99) mg/dl Estimat Average Glucose mg/dl Hemoglobin A1c (4.5-5.6) % Calcium (8.5-10.1) mg/dl Phosphorus (2.5-4.9) mg/dl Magnesium (1.8-2.4) mg/dl Troponin I (0-0.045) ng/ml Procalcitonin (0-0.5) ng/ml Nasal Screen MRSA (PCR) (Negative) 12/04/20 12/04/20 12/04/20 Range/Units 19:57 19:29 18:38 WBC (4.8-10.8) K/uL RBC (4.2-5.4) M/uL Hgb (12.0-16.0) g/dL POC Hgb (12.0-16.0) g/dl Hct (37-47) % POC Hct (37-47) % MCV (80-100) fL MCH (25-34) pg MCHC (32-36) g/dL RDW Std Deviation (36.4-46.3) fL RDW Coeff of Frank (11.5-14.5) % Plt Count (130-400) K/uL MPV (7.4-10.4) fL Immature Gran % (Auto) % Neut % (Auto) % Lymph % (Auto) % [place] % (Auto) % Eos % (Auto) % Baso % (Auto) % Neut # (Auto) (1.4-6.5) K/uL Lymph # (Auto) (1.2-3.4) K/uL [place] # (Auto) (0.11-0.59) K/uL Eos # (Auto) (0-0.5) K/uL Baso # (Auto) (0-0.2) K/uL Immature Gran # (Auto) (0.00-0.02) K/uL D-Dimer (0-500) ug/L FEU Sample Site POC pH (7.35-7.45) POC pCO2 (35-46) mmHg POC pO2 (80-95) mmHg POC HCO3 (19-24) fan/L POC Total CO2 (24-31) mmol/L POC Base Excess (-9-1.8) fan/L ABG pH (Temp Correct) (7.35-7.45) ABG pCO2 (Temp Corrct (35-46) mmHg POC ABG pO2 at Pt Temp POC ABG O2 Sat (90-95) % Micah Test O2 Delivery Device POC O2 Rate Minute Ventilation POC FiO2 % Tidal Volume PEEP POC Sodium (135-144) mmol/L Sodium (136-145) mmol/L POC Potassium (3.3-5.0) mmol/L Potassium (3.5-5.1) mmol/L Chloride (98-107) mmol/L Carbon Dioxide (21-32) mmol/L Anion Gap (3-11) BUN (7-18) mg/dl Creatinine (0.6-1.2) mg/dl Est Cr Clr Drug Dosing ml/min Est GFR ( Amer) ml/min Est GFR (Non-Af Amer) ml/min BUN/Creatinine Ratio (10-20) Glucose (70-99) mg/dl POC Glucose 80 92 122 H (70-99) mg/dl Estimat Average Glucose mg/dl Hemoglobin A1c (4.5-5.6) % Calcium (8.5-10.1) mg/dl Phosphorus (2.5-4.9) mg/dl Magnesium (1.8-2.4) mg/dl Troponin I (0-0.045) ng/ml Procalcitonin (0-0.5) ng/ml Nasal Screen MRSA (PCR) (Negative) 12/04/20 12/04/20 12/04/20 Range/Units 17:42 16:36 15:32 WBC (4.8-10.8) K/uL RBC (4.2-5.4) M/uL Hgb (12.0-16.0) g/dL POC Hgb (12.0-16.0) g/dl Hct (37-47) % POC Hct (37-47) % MCV (80-100) fL MCH (25-34) pg MCHC (32-36) g/dL RDW Std Deviation (36.4-46.3) fL RDW Coeff of Frank (11.5-14.5) % Plt Count (130-400) K/uL MPV (7.4-10.4) fL Immature Gran % (Auto) % Neut % (Auto) % Lymph % (Auto) % [place] % (Auto) % Eos % (Auto) % Baso % (Auto) % Neut # (Auto) (1.4-6.5) K/uL Lymph # (Auto) (1.2-3.4) K/uL [place] # (Auto) (0.11-0.59) K/uL Eos # (Auto) (0-0.5) K/uL Baso # (Auto) (0-0.2) K/uL Immature Gran # (Auto) (0.00-0.02) K/uL D-Dimer (0-500) ug/L FEU Sample Site POC pH (7.35-7.45) POC pCO2 (35-46) mmHg POC pO2 (80-95) mmHg POC HCO3 (19-24) fan/L POC Total CO2 (24-31) mmol/L POC Base Excess (-9-1.8) fan/L ABG pH (Temp Correct) (7.35-7.45) ABG pCO2 (Temp Corrct (35-46) mmHg POC ABG pO2 at Pt Temp POC ABG O2 Sat (90-95) % Micah Test O2 Delivery Device POC O2 Rate Minute Ventilation POC FiO2 % Tidal Volume PEEP POC Sodium (135-144) mmol/L Sodium (136-145) mmol/L POC Potassium (3.3-5.0) mmol/L Potassium (3.5-5.1) mmol/L Chloride (98-107) mmol/L Carbon Dioxide (21-32) mmol/L Anion Gap (3-11) BUN (7-18) mg/dl Creatinine (0.6-1.2) mg/dl Est Cr Clr Drug Dosing ml/min Est GFR ( Amer) ml/min Est GFR (Non-Af Amer) ml/min BUN/Creatinine Ratio (10-20) Glucose (70-99) mg/dl POC Glucose 172 H 218 H 260 H (70-99) mg/dl Estimat Average Glucose mg/dl Hemoglobin A1c (4.5-5.6) % Calcium (8.5-10.1) mg/dl Phosphorus (2.5-4.9) mg/dl Magnesium (1.8-2.4) mg/dl Troponin I (0-0.045) ng/ml Procalcitonin (0-0.5) ng/ml Nasal Screen MRSA (PCR) (Negative) 12/04/20 12/04/20 12/04/20 Range/Units 13:50 13:45 12:48 WBC (4.8-10.8) K/uL RBC (4.2-5.4) M/uL Hgb (12.0-16.0) g/dL POC Hgb 15.3 (12.0-16.0) g/dl Hct (37-47) % POC Hct 45 (37-47) % MCV (80-100) fL MCH (25-34) pg MCHC (32-36) g/dL RDW Std Deviation (36.4-46.3) fL RDW Coeff of Frank (11.5-14.5) % Plt Count (130-400) K/uL MPV (7.4-10.4) fL Immature Gran % (Auto) % Neut % (Auto) % Lymph % (Auto) % [place] % (Auto) % Eos % (Auto) % Baso % (Auto) % Neut # (Auto) (1.4-6.5) K/uL Lymph # (Auto) (1.2-3.4) K/uL [place] # (Auto) (0.11-0.59) K/uL Eos # (Auto) (0-0.5) K/uL Baso # (Auto) (0-0.2) K/uL Immature Gran # (Auto) (0.00-0.02) K/uL D-Dimer (0-500) ug/L FEU Sample Site L Radial POC pH 7.24 L (7.35-7.45) POC pCO2 56 H (35-46) mmHg POC pO2 97 H (80-95) mmHg POC HCO3 24 (19-24) fan/L POC Total CO2 26 (24-31) mmol/L POC Base Excess -3.0 (-9-1.8) fan/L ABG pH (Temp Correct) 7.242 L (7.35-7.45) ABG pCO2 (Temp Corrct 57 H (35-46) mmHg POC ABG pO2 at Pt Temp 98 POC ABG O2 Sat 96.0 H (90-95) % Micah Test Pass O2 Delivery Device Ventilator POC O2 Rate 18 Minute Ventilation 7 POC FiO2 60 % Tidal Volume 350 PEEP 18 POC Sodium 131 L (135-144) mmol/L Sodium (136-145) mmol/L POC Potassium 5.3 H (3.3-5.0) mmol/L Potassium (3.5-5.1) mmol/L Chloride (98-107) mmol/L Carbon Dioxide (21-32) mmol/L Anion Gap (3-11) BUN (7-18) mg/dl Creatinine (0.6-1.2) mg/dl Est Cr Clr Drug Dosing ml/min Est GFR ( Amer) ml/min Est GFR (Non-Af Amer) ml/min BUN/Creatinine Ratio (10-20) Glucose (70-99) mg/dl POC Glucose 303 H* (70-99) mg/dl Estimat Average Glucose mg/dl Hemoglobin A1c (4.5-5.6) % Calcium (8.5-10.1) mg/dl Phosphorus (2.5-4.9) mg/dl Magnesium (1.8-2.4) mg/dl Troponin I (0-0.045) ng/ml Procalcitonin (0-0.5) ng/ml Nasal Screen MRSA (PCR) Negative (Negative) 12/04/20 12/04/20 12/04/20 Range/Units 12:29 12:29 12:29 WBC (4.8-10.8) K/uL RBC (4.2-5.4) M/uL Hgb (12.0-16.0) g/dL POC Hgb (12.0-16.0) g/dl Hct (37-47) % POC Hct (37-47) % MCV (80-100) fL MCH (25-34) pg MCHC (32-36) g/dL RDW Std Deviation (36.4-46.3) fL RDW Coeff of Frank (11.5-14.5) % Plt Count (130-400) K/uL MPV (7.4-10.4) fL Immature Gran % (Auto) % Neut % (Auto) % Lymph % (Auto) % [place] % (Auto) % Eos % (Auto) % Baso % (Auto) % Neut # (Auto) (1.4-6.5) K/uL Lymph # (Auto) (1.2-3.4) K/uL [place] # (Auto) (0.11-0.59) K/uL Eos # (Auto) (0-0.5) K/uL Baso # (Auto) (0-0.2) K/uL Immature Gran # (Auto) (0.00-0.02) K/uL D-Dimer 1080 H* (0-500) ug/L FEU Sample Site POC pH (7.35-7.45) POC pCO2 (35-46) mmHg POC pO2 (80-95) mmHg POC HCO3 (19-24) fan/L POC Total CO2 (24-31) mmol/L POC Base Excess (-9-1.8) fan/L ABG pH (Temp Correct) (7.35-7.45) ABG pCO2 (Temp Corrct (35-46) mmHg POC ABG pO2 at Pt Temp POC ABG O2 Sat (90-95) % Micah Test O2 Delivery Device POC O2 Rate Minute Ventilation POC FiO2 % Tidal Volume PEEP POC Sodium (135-144) mmol/L Sodium (136-145) mmol/L POC Potassium (3.3-5.0) mmol/L Potassium (3.5-5.1) mmol/L Chloride (98-107) mmol/L Carbon Dioxide (21-32) mmol/L Anion Gap (3-11) BUN (7-18) mg/dl Creatinine (0.6-1.2) mg/dl Est Cr Clr Drug Dosing ml/min Est GFR ( Amer) ml/min Est GFR (Non-Af Amer) ml/min BUN/Creatinine Ratio (10-20) Glucose (70-99) mg/dl POC Glucose (70-99) mg/dl Estimat Average Glucose mg/dl Hemoglobin A1c (4.5-5.6) % Calcium (8.5-10.1) mg/dl Phosphorus (2.5-4.9) mg/dl Magnesium (1.8-2.4) mg/dl Troponin I < 0.015 (0-0.045) ng/ml Procalcitonin 0.21 (0-0.5) ng/ml Nasal Screen MRSA (PCR) (Negative) 12/04/20 12/04/20 Range/Units 11:19 04:18 WBC (4.8-10.8) K/uL RBC (4.2-5.4) M/uL Hgb (12.0-16.0) g/dL POC Hgb 15.3 (12.0-16.0) g/dl Hct (37-47) % POC Hct 45 (37-47) % MCV (80-100) fL MCH (25-34) pg MCHC (32-36) g/dL RDW Std Deviation (36.4-46.3) fL RDW Coeff of Frank (11.5-14.5) % Plt Count (130-400) K/uL MPV (7.4-10.4) fL Immature Gran % (Auto) % Neut % (Auto) % Lymph % (Auto) % [place] % (Auto) % Eos % (Auto) % Baso % (Auto) % Neut # (Auto) (1.4-6.5) K/uL Lymph # (Auto) (1.2-3.4) K/uL [place] # (Auto) (0.11-0.59) K/uL Eos # (Auto) (0-0.5) K/uL Baso # (Auto) (0-0.2) K/uL Immature Gran # (Auto) (0.00-0.02) K/uL D-Dimer (0-500) ug/L FEU Sample Site L Radial POC pH 7.37 (7.35-7.45) POC pCO2 38 (35-46) mmHg POC pO2 75 L (80-95) mmHg POC HCO3 22 (19-24) fan/L POC Total CO2 23 L (24-31) mmol/L POC Base Excess -3.0 (-9-1.8) fan/L ABG pH (Temp Correct) 7.367 (7.35-7.45) ABG pCO2 (Temp Corrct 38 (35-46) mmHg POC ABG pO2 at Pt Temp 75 POC ABG O2 Sat 94.0 (90-95) % Micah Test Pass O2 Delivery Device Ventilator POC O2 Rate 18 Minute Ventilation 6 POC FiO2 55 % Tidal Volume 350 PEEP 16 POC Sodium 133 L (135-144) mmol/L Sodium (136-145) mmol/L POC Potassium 5.0 (3.3-5.0) mmol/L Potassium (3.5-5.1) mmol/L Chloride (98-107) mmol/L Carbon Dioxide (21-32) mmol/L Anion Gap (3-11) BUN (7-18) mg/dl Creatinine (0.6-1.2) mg/dl Est Cr Clr Drug Dosing ml/min Est GFR ( Amer) ml/min Est GFR (Non-Af Amer) ml/min BUN/Creatinine Ratio (10-20) Glucose (70-99) mg/dl POC Glucose (70-99) mg/dl Estimat Average Glucose 243 mg/dl Hemoglobin A1c 10.1 H (4.5-5.6) % Calcium (8.5-10.1) mg/dl Phosphorus (2.5-4.9) mg/dl Magnesium (1.8-2.4) mg/dl Troponin I (0-0.045) ng/ml Procalcitonin (0-0.5) ng/ml Nasal Screen MRSA (PCR) (Negative) Coding Level of Care Code Critical Care 1st 30-74 mins Diagnoses Pneumonia due to COVID-19 virus U07.1; J12.82 Hypoxia R09.02 CAD (coronary artery disease) I25.10 Encephalopathy G93.40 Acute kidney injury N17.9
[2020-12-05] MEDS: CISATRACURIUM BESYLATE 40 MG in 0.9 % SODIUM CHLORIDE 80 ML IV SCH ×2 (00:37→11:41)
[2020-12-05] MEDS: INSULIN ASPART 100 UNITS/ML 3 ML PEN SC SCH ×6 (03:55→23:07)
[2020-12-05 04:39] LABS: iSTAT Allen Test Pass; iSTAT Art Bld Gas pCO2 Correct 38 mmHg (35-46); iSTAT Art Bld Gas pH Corrected 7.404 (7.35-7.45); iSTAT Arterial Blood Gas HCO3 24 meg/L (19-24); iSTAT Arterial Blood Gas pCO2 39 mmHg (35-46); iSTAT Arterial Blood Gas pO2 86 mmHg (80-95); iSTAT Arterial Blood Gas pO2 C 83; iSTAT Carbon Dioxide 25 mmol/L (24-31); iSTAT FiO2 50 %; iSTAT Hematocrit 38 % (37-47); iSTAT Hemoglobin 12.9 g/dl (12.0-16.0); iSTAT Potassium 4.7 mmol/L (3.3-5.0); iSTAT Site L Radial; iSTAT Sodium 134 mmol/L (135-144)
[2020-12-05 04:49] LABS: Hemoglobin 14.1 g/dL (12.0-16.0); Mean Corpuscular Hemoglobin 27.7 pg (25-34); Mean Corpuscular Hgb Conc 34.4 g/dL (32-36); Mean Corpuscular Volume 80.6 fL (80-100); Mean Platelet Volume 10.4 fL (7.4-10.4); Platelet Count 261 K/uL (130-400); RDW Coefficient of Variation 13.2 % (11.5-14.5); RDW Standard Deviation 39.2 fL (36.4-46.3); Red Blood Count 5.09 M/uL (4.2-5.4); White Blood Count 10.04 K/uL (4.8-10.8)
[2020-12-05 05:06] LABS: Immature Granulocytes # (auto) 0.17 K/uL (0.00-0.02); Immature Granulocytes % (auto) 1.7 %; Lymphocytes # (auto) 0.74 K/uL (1.2-3.4); Lymphocytes % (auto) 7.4 %; Monocytes # (auto) 0.27 K/uL (0.11-0.59); Monocytes % (auto) 2.7 %; Neutrophils # (auto) 8.86 K/uL (1.4-6.5); Neutrophils % (auto) 88.2 %
[2020-12-05 05:08] LABS: BUN Creatinine Ratio 28.9 (10-20); Calcium 7.9 mg/dl (8.5-10.1); Creatinine Clr Calc Pharmacy 16.4 ml/min; Est GFR (African American) 16.1 ml/min; Est GFR (Non-African American) 13.9 ml/min; Magnesium 2.6 mg/dl (1.8-2.4); Potassium 4.8 mmol/L (3.5-5.1)
[2020-12-05] MEDS: propofoL 1,000 MG/100 ML VIAL IV SCH ×3 (05:19→19:20)
[2020-12-05] MEDS: HEPARIN SOD 5,000 UNIT/0.5 ML VIAL SQ SCH ×3 (05:27→21:01)
[2020-12-05 05:28] LABS: Phosphorus 5.6 mg/dl (2.5-4.9)
[2020-12-05 06:40] LABS: Estimated Average Glucose 243 mg/dl; Hemoglobin A1C 10.1 % (4.5-5.6)
[2020-12-05] MEDS: guaiFENesin 600 MG TABCR PO SCH (08:05)
[2020-12-05] MEDS: ROSUVASTATIN CALCIUM 5 MG TAB PO SCH (08:05)
[2020-12-05] MEDS: PANTOprazole 40 MG in SYRINGE 0 ML IV SCH (08:05)
[2020-12-05] MEDS: amLODIPine BESYLATE 5 MG TAB PO SCH (08:05)
[2020-12-05] MEDS: dexAMETHasone 6 MG in SYRINGE 0 ML IV SCH (08:05)
[2020-12-05] MEDS: ASPIRIN 81 MG ECTAB PO SCH (08:05)
[2020-12-05] MEDS: INSULIN GLARGINE SOLOSTAR 100 UNITS/ML 3 ML PEN SQ SCH (09:15)
--- NOTE | 2020-12-05 09:34 | XRay Report ---
XR chest 1V portable CLINICAL HISTORY: resp failure COMPARISON STUDY: December 04, 2020 at 11:33 hours FINDINGS: No pneumothorax. No pleural effusion. Redemonstration of reticular nodular opacities at bilateral mid to lower lung region, similar to rece nt prior study. Cardiomediastinal silhouette is within normal limits in size. Pulmonary vasculature is indistinct.. Aorta is calcified. Osseous structures: unremarkable vertebral bodies are not well seen. Tip of endotracheal tube is seen 3.9 cm above michael. Fenestrated side-port of the gastric tube is se en slightly inferiorly to the hemidiaphragm level. Stable position of the right subclavian central venous catheter. Midline sternotomy wires are again seen. Multiple wires overlying right hemithorax and right hemiabdomen are seen. IMPRESSION: 1. Stable reticular nodular opacities at bilateral lower lungs, might represent pneumonia and/or pul monary edema. 2. Support apparatus as above. ACT 112: Negative or not required by law. The above report was generated using voice recognition software. It may contain grammatical, syntax o r spelling errors. Electronically signed by: Gabrielle Pardo DO 12/05/2020 9:33 AM
[2020-12-05] MEDS: fentaNYL DRIP 1,250 MCG/250 ML BAG IV SCH ×2 (10:22→23:07)
--- NOTE | 2020-12-05 12:52 | Pharmacy Report ---
Pharmacy Glycemic Short Note 2 - Date of Service December 05, 2020 - Glycemic Short BSG Results (Last 24 hours): 12/04/20 12/04/20 12/04/20 13:45 15:32 16:36 Glucose POC Glucose 303 H* 260 H 218 H 12/04/20 12/04/20 12/04/20 17:42 18:38 19:29 Glucose POC Glucose 172 H 122 H 92 12/04/20 12/04/20 12/04/20 19:57 20:26 21:35 Glucose POC Glucose 80 179 H 125 H 12/04/20 12/05/20 12/05/20 23:00 03:43 04:31 Glucose 131 H POC Glucose 102 H 128 H 12/05/20 12/05/20 08:13 10:48 Glucose POC Glucose 153 H 168 H OUTPATIENT ANTIDIABETIC REGIMEN: * Glimepiride 1 mg po daily * A1c 8.8% 09/2020 ASSESSMENT: 12/05 * Insulin drip transitioned off yesterday evening * Dexamethasone decreased to 6 mg daily, starting this AM. Novasource renal trickle feeds initiated. * Will decrease Lantus based on hypoglycemia noted a couple of days ago while on dexamethasone 6 mg and Lantus 40 units (total day prior). However, will also have additional supplemental Lantus HS prn BSG >200 mg/dL in the even that the higher dose steroids from yesterday persist and/or initiation of trickle TF causes an increase in BSG * Will loosen Novolog parameters to weight-based severe stress estimate now that steroids have decreased 12/04: * Leisa received a total of 68 units of insulin yesterday * 40 units basal + 28 units bolus * BSGs were uncontrolled: [phone] mg/dL * There was an overnight check at ~3 am which was 162 mg/dL. AM fasting BSG was not taken until ~1030 secondary to patient requiring intubation and central line placement. BSG at that time was 230 mg/dL. This was also post- dexamethasone administration which was switch to AM timing. * Will give 40 units of Lantus this morning. May require an addition HS scale of Lantus this evening. * Will tighten correction factor and carb ratio given hyperglycemia and change in Dexamethasone timing. * UPDATE: BSG at 1400 was 303 mg/dL. Patient was covered with 11 units of Francia log. Will add an 8 unit IV insulin bolus and start IV insulin infusion 12/03: * Pt transferred to ICU last evening for worsening respiratory failure * Pt given Dexamethasone 20mg IV last night (in addition to the 6mg IV given earlier in the morning) and daily Dexamethasone increased to 20mg IV Q24hrs * BSGs significantly elevated this morning at 273 mg/dl secondary to steroids. * PO intake minimal - will use peakless Lantus instead of NPH to cover steroid induced hyperglycemia * Typically, 0.4units/kg insulin given for high dose steroids; will decrease slightly to 0.35 units/kg for decreased PO intake and titrate based on BSG trends. 12/02: * Patient admitted with increased shortness of breath/COVID. Started on IV dexamethasone. Type 2 diabetic with hx of CAD, htn. * Pharmacy consulted for glycemic management. Received consult last evening as BSGs in 400s * Patient received total of 86 units of insulin yesterday, of which 40 units were Lantus. * Fasting BSG low at 65 mg/dL - no symptoms of hypoglycemia per notes. Received IV dexamethasone dose this AM * Held AM basal insulin as likely we are still seeing effects from dose of Lantus given last night with dinner * Lunch BSG still on lower end of range at 89 mg/dL - will continue to hold further basal for now. PO intake is none PLAN FOR INPATIENT GLYCEMIC CONTROL: * Lantus 30 units SC x1 this AM with additional 10 units tonight if BSG >200 mg/dL * Novolog q4h * Goal range: 110-140 mg/dL * Correction factor: 20 mg/dL/unit * Carb ratio: 6 g CHO/unit (only cover Novasource if rate >= 20 mL/min) PLAN FOR DISCHARGE: * To be determined
[2020-12-05] MEDS: TUBE FEEDING WATER FLUSH OG SCH ×4 (14:15→23:42)
[2020-12-05] MEDS: NOVASOURCE RENAL 2.0 CAL 1000ML BAG OG SCH (14:55)
--- NOTE | 2020-12-05 17:18 | Nephrology Progress Note ---
Date of Service December 05, 2020 Assessment & Plan (1) ADONIS (acute kidney injury): newly borderline oliguric acute kidney injury, now stage 2, worsening; concern for emerging oliguria. Her baseline creatinine in [facility] records is 1.5-1.6 as recently as September 2020. She follows w/ me in CKD clinic (seen 2X in last 3 years though). She was 3.2 on presentation November 30. Trending downward to 2.3 yesterday then back to 3.2 today post intubation. Urine sediment bland. Renal imaging remarkable for mild left greater than right renal atrophy; no infarcts or obstruction seen. Nonspecific bilateral perinephric stranding noted. She has acceptable chemistries but remains volume overloaded in the setting of COVID-19. Not acidemic. -Daily basic metabolic panel -also rechck bmp ordered for this evenign along w/ UACM Lasix as needed to optimize respiratory and volume status No indication for emergent dialysis but cannto rule out need Continue strict intake and output (2) Electrolyte and fluid disorder: Mild hyponatremia present since admission. Was 130 on presentation. 134 this morning. Some role potentially for elevated blood sugars here. Potassium has been acceptably controlled. No prior history of outpatient/chronic hyponatremia Monitor daily Would not work-up unless significantly worsening (3) Pneumonia due to COVID-19 virus: Admission and Anticipated Discharge Date Admission Date: November 30, 2020 Subjective intubated ON; creatinine worse today and UOP noted to be dropping > about 90 mL 7A-1500 per RN; pt family asking for [facility] transfer- not clear if this willbe feasible Review of Systems Review of Systems: Unobtainable due to endotracheal tube Physical Exam Constitutional: well developed, well nourished and + mechanically ventilated; no acute distress PRONE Eyes: EOM intact bilaterally ENMT: Ears: no external ear abnormality Nose: no external nose abnormality ETT present Neck: no nuchal rigidity Respiratory: Auscultation: + diminished lung sounds; no crackles and no wheezes Cardiovascular: Rate/Rhythm: regular rate and regular rhythm Extremities: no edema Gastrointestinal (Abdomen): Inspection/Auscultation: normal bowel sounds Percussion/Palpation: abdomen soft; abdomen nontender Musculoskeletal: Extremities: + abnormal strength (paralyzd) Skin: no rashes, warm and dry Results & Data ([facility]) Vital Signs (Past 12 Hours) Vital Signs Temp Pulse Resp BP Pulse Ox 12/05/20 16:30 36.5 C 82 90 12/05/20 16:00 36.5 C 85 89 L 12/05/20 15:44 78 22 92 12/05/20 15:30 36.4 C L 77 92 12/05/20 15:00 36.4 C L 80 92 12/05/20 14:30 36.4 C L 75 92 12/05/20 14:00 36.5 C 73 92 12/05/20 13:30 36.5 C 73 92 12/05/20 13:00 36.6 C 73 91 12/05/20 12:30 36.6 C 76 90 12/05/20 12:00 36.7 C 76 89 L 12/05/20 11:30 36.7 C 80 89 L 12/05/20 11:10 82 22 94 12/05/20 11:00 36.7 C 91 H 98 12/05/20 10:30 36.7 C 82 88 L 12/05/20 10:00 36.6 C 86 89 L 12/05/20 09:30 36.6 C 85 89 L 12/05/20 09:00 36.5 C 85 90 12/05/20 08:30 36.5 C 87 90 12/05/20 08:00 36.6 C 83 22 90 12/05/20 07:30 36.6 C 80 91 12/05/20 07:00 36.6 C 81 91 12/05/20 06:30 36.5 C 80 91 12/05/20 06:00 36.5 C 80 90 12/05/20 05:39 36.5 C 77 89 L 12/05/20 05:38 36.5 C 77 93/49 L 90 12/05/20 05:37 36.5 C 77 90/51 L 89 L 12/05/20 05:30 36.5 C 77 89 L Laboratory Results 12/05/20 04:31 12/05/20 04:31
[2020-12-05 18:06] LABS: Calcium 8.3 mg/dl (8.5-10.1); Creatinine Clr Calc Pharmacy 14.4 ml/min; Est GFR (African American) 13.9 ml/min; Potassium 5.1 mmol/L (3.5-5.1)
[2020-12-05] MEDS ORDERED: CISATRACURIUM BESYLATE 40 MG in 0.9 % SODIUM CHLORIDE 80 ML IV SCH (20:30)
--- NOTE | 2020-12-05 20:45 | Hospitalist Progress Note ---
Date of Service December 05, 2020 Assessment & Plan (1) Hypoxia: (2) Pneumonia due to COVID-19 virus: Present on admission worsening shortness of breath COVID-19 tested positive CXR showed cardiomegaly with pulmonary vascular congestion. Interstitial airspace opacities are seen bilaterally. Started on Dexamethasone 6mg IV daily, will continue Remdesivir did not start due to poor renal function Pt was started on heparin drip since unable to get a CTA chest to r/o PE Hypoxia moslty due to COVID 19. Doubt of PE since no tachycardia and CXR showed infiltrate mostly from COVID 19 Pulm consulted Heparin drip was discontinued Currently on Cpap with 100% oxygen D-dimer 1150, CRP 1.98, Ferritin 945 and ESR 43 Will continue IV dexamethasone Case discussed with the Front Desk Worker might consider to give a low dose of Lasix 20mg IV x1 Case discussed with her Daughter Petra ( ) and answered all her questions Daughter said that pt is FULL code Will transfer to the ICU to monitor closely 12/04 Intubated on vent support with PEEP 16, TV 350 FI02 60 Sedated with Propofol and Nimbex On decadron 10mg daily Inflammatory marker: CRP increase to 5.51. ferritin (935), D-Dimer ( 1030), ESR (42) slightly decreased. No a candidate for Remdesivir since symptoms has been going on for week and also due to renal failure Continue monitor in the ICU Daughter would like patient to transfer to [place] because she is not to happy about the care her mom is receiving at [facility] I called the transfer line in [place] and spoke with Dr. Anmol Corea said that if patient transfers to [place] the care will be the same as what she is getting at [facility] Since transfer as per family request and not because we cannot provide care to patient, [place] would like to get insurance authorization first before they can accept the patient I called to notify daughter that if insurance does not approve the transfer, she might get a hospital bill; and even though insurance approves for the transfer, that she might get a bill for the transport Case management notify and she is working on approval. Once I get the approval that i will call [place] to give auth number. Case management called and the approval department closed for today, will try again tomorrow I called infection disease in [facility] about administering Tocilizumad. Spoke to Dr. Pineda that went over the NIH guideline together. Tocilizumad usually administers within 24hr when pt admits in the ICU and require mechanical Ventilation. Our patient was intubated today after respiratory status worsening on max high flow oxygen. Also Dr. Pineda said that cut of for CRP was 75 mg/l. He does not know if that will provide any benefit on her patient. Daughter has been requested for Tocilizumad to be administered. I explained to daughter about the major risk of Tocilizumad such as GI perforation/bleeding. Daughter understood the risk and agreed for her mother to get it. Spoke to daughter today and informed about the transfer to [facility] As of right now there is no confirmation that patient will be transferred to [place] Case management called the insurance ([employer]). [employer] does not require prior authorization for transfer to [place] since considering a tertiary care [employer] will not guarantee payment for the hospital course. [place] transfer does not want to accept the patient until payment guarantee If [employer] cannot guarantee, the family will be responsible to pay the bill Spoke to daughter Petra again and provided with updates. Daughter said she is going to contact the insurance company Daughter is awared that we will hold the transfer until [place] guarantees payment ADONIS Mostly due to acute illness CT showed no urinary calculi or hydronephrosis. Moderate left and mild right renal atrophy with nonspecific bilateral perinephric stranding. Creatinine worsening to 3.6 Continue to hold lasix for now Nephrology on board Avoid nephrotoxic agent Elevated Lactic acid Mostly due to Hypoxia lactate 2.4 and procalcitonin normal Blood cx no growth Lactate normalized Continue to hold on any abx for now Metabolic encephalopathy Mostly related to acute illness/COVID 19 CT head showed no acute intracranial abnormality Clinically improves CAD Denies any chest Continue aspirin and statin Diabetes Hba1c 10.1 on 12/05/20 Continue insulin sliding with NovoLog and Lantus Pharmacy on board for glycemic management Continue monitor blood sugar DVT px Discontinue heparin started on subcu heparin CODE status full code as per discussion with pricilla Lambert Disposition Continue monitor in the ICU . Admission and Anticipated Discharge Date Admission Date: November 30, 2020 Subjective Pt was seen and examined for follow up of SOB due to COVID 19 Sedated and intubated on vent s support Pt remain proning to help to help with lung expansion Spoke to daughter today and informed about the transfer to [facility] As of right now there is no confirmation that patient will be transferred to [place] Case management called the insurance ([employer]). [employer] does not require prior authorization for transfer to [place] since considering a tertiary care [employer] will not guarantee payment for the hospital course. [place] transfer does not want to accept the patient until payment guarantee If [employer] cannot guarantee, the family will be responsible to pay the bill Spoke to daughter Petra again and provided with updates. Daughter said she is going to contact the insurance company Daughter is awared that we will hold the transfer until [place] guarantees payment Review of Systems Review of Systems: All systems reviewed & are unremarkable except as noted in Subjective Physical Exam Physical Exam: General- sedated with propofol, fentanyl and Nimbex Head- atraumatic Eyes- PERRL, EOMI, ENT- Intubated Neck- supple, no JVD Lungs-Intubated on ruby support Heart- regular rhythm; no murmur Abdomen- normal bowel sounds, Extremities- no calf tenderness Neuro- sedated Skin- warm & dry Results & Data Results & Data ([facility]) Vital Signs (Past 12 Hours) Vital Signs Temp Pulse Resp BP Pulse Ox 12/05/20 16:30 36.5 C 82 90 12/05/20 16:00 36.5 C 85 89 L 12/05/20 15:44 78 22 92 12/05/20 15:30 36.4 C L 77 92 12/05/20 15:00 36.4 C L 80 92 12/05/20 14:30 36.4 C L 75 92 12/05/20 14:00 36.5 C 73 92 12/05/20 13:30 36.5 C 73 92 12/05/20 13:00 36.6 C 73 91 12/05/20 12:30 36.6 C 76 90 12/05/20 12:00 36.7 C 76 89 L 12/05/20 11:30 36.7 C 80 89 L 12/05/20 11:10 82 22 94 12/05/20 11:00 36.7 C 91 H 98 12/05/20 10:30 36.7 C 82 88 L 12/05/20 10:00 36.6 C 86 89 L 12/05/20 09:30 36.6 C 85 89 L 12/05/20 09:00 36.5 C 85 90 12/05/20 08:30 36.5 C 87 90 12/05/20 08:00 36.6 C 83 22 90 12/05/20 07:30 36.6 C 80 91 12/05/20 07:00 36.6 C 81 91 12/05/20 06:30 36.5 C 80 91 12/05/20 06:00 36.5 C 80 90 12/05/20 05:39 36.5 C 77 89 L 12/05/20 05:38 36.5 C 77 93/49 L 90 12/05/20 05:37 36.5 C 77 90/51 L 89 L 12/05/20 05:30 36.5 C 77 89 L 12/05/20 05:03 36.5 C 82 113/62 90 12/05/20 05:00 36.5 C 80 89 L 12/05/20 04:59 36.5 C 79 121/58 L 89 L
[2020-12-05] MEDS ORDERED: INSULIN GLARGINE SOLOSTAR 100 UNITS/ML 3 ML PEN SQ SCH (21:00)
[2020-12-06] MEDS: CISATRACURIUM BESYLATE 40 MG in 0.9 % SODIUM CHLORIDE 80 ML IV SCH ×2 (00:15→10:51)
[2020-12-06 00:41] LABS: Appearance Urine Turbid (Clear); Bacteria Urine Automated 3+ (Negative); Bilirubin Urine Negative (Negative); Blood Urine Negative (Negative); Color Urine Yellow; Epithelial Cell Urine Auto 20-30 /lpf (0-5); Glucose Urine UA Negative (Negative); Ketones Urine Negative (Negative); Leukocyte Esterase Urine 1+ (Negative); Nitrite Urine Negative (Negative); Protein Urine Trace (Negative); Specific Gravity Urine 1.021 (1.000-1.030); Urobilinogen Urine Negative (Negative)
[2020-12-06] MEDS ORDERED: RAPID SEQUENCE INDUCTION BAG ONE (01:07)
[2020-12-06 01:31] LABS: Cast Urine Automated 0 /lpf (0-5); RBC Urine Automated 0-4 /hpf (0-4); Uric Acid Crystals Urine Present (None Prsent)
[2020-12-06] MEDS: TUBE FEEDING WATER FLUSH OG SCH ×5 (04:03→20:11)
[2020-12-06] MEDS: INSULIN ASPART 100 UNITS/ML 3 ML PEN SC SCH ×5 (04:04→20:10)
[2020-12-06 05:05] LABS: iSTAT Allen Test Pass; iSTAT Art Bld Gas pCO2 Correct 41 mmHg (35-46); iSTAT Art Bld Gas pH Corrected 7.353 (7.35-7.45); iSTAT Arterial Blood Gas HCO3 23 meg/L (19-24); iSTAT Arterial Blood Gas pCO2 40 mmHg (35-46); iSTAT Arterial Blood Gas pH 7.36 (7.35-7.45); iSTAT Arterial Blood Gas pO2 66 mmHg (80-95); iSTAT Arterial Blood Gas pO2 C 69; iSTAT Carbon Dioxide 24 mmol/L (24-31); iSTAT FiO2 30 %; iSTAT Hematocrit 39 % (37-47); iSTAT Hemoglobin 13.3 g/dl (12.0-16.0); iSTAT Potassium 5.2 mmol/L (3.3-5.0); iSTAT Site R Radial; iSTAT Sodium 132 mmol/L (135-144)
[2020-12-06 05:16] LABS: Basophils # (auto) 0.01 K/uL (0-0.2); Basophils % (auto) 0.1 %; Hematocrit (blood only) 42.2 % (37-47); Hemoglobin 14.3 g/dL (12.0-16.0); Immature Granulocytes # (auto) 0.15 K/uL (0.00-0.02); Lymphocytes # (auto) 1.29 K/uL (1.2-3.4); Lymphocytes % (auto) 8.7 %; Mean Corpuscular Hemoglobin 28.1 pg (25-34); Mean Corpuscular Hgb Conc 33.9 g/dL (32-36); Mean Corpuscular Volume 83.1 fL (80-100); Mean Platelet Volume 10.6 fL (7.4-10.4); Monocytes # (auto) 0.02 K/uL (0.11-0.59); Monocytes % (auto) 0.1 %; Neutrophils # (auto) 13.41 K/uL (1.4-6.5); Neutrophils % (auto) 90.1 %; Platelet Count 345 K/uL (130-400); RDW Coefficient of Variation 13.2 % (11.5-14.5); Red Blood Count 5.08 M/uL (4.2-5.4); White Blood Count 14.88 K/uL (4.8-10.8)
[2020-12-06 05:45] LABS: BUN Creatinine Ratio 31.5 (10-20); Calcium 7.7 mg/dl (8.5-10.1); Creatinine Clr Calc Pharmacy 14.8 ml/min; Est GFR (African American) 14.4 ml/min; Est GFR (Non-African American) 12.4 ml/min; Magnesium 2.6 mg/dl (1.8-2.4); Potassium 5.5 mmol/L (3.5-5.1)
[2020-12-06] MEDS: HEPARIN SOD 5,000 UNIT/0.5 ML VIAL SQ SCH ×3 (07:13→21:34)
[2020-12-06] MEDS: propofoL 1,000 MG/100 ML VIAL IV SCH ×3 (07:30→18:46)
--- NOTE | 2020-12-06 08:27 | XRay Report ---
SINGLE VIEW CHEST CLINICAL HISTORY: Respiratory failure. FINDINGS: An AP, portable, upright chest radiograph is compared to study dated 12/05/2020. An endotrac heal tube, an enteric tube, and a right internal jugular central venous catheter are unchanged in pos ition. The patient is status post midline sternotomy. The cardiomediastinal silhouette is unremarkabl e noting atherosclerotic calcification of the thoracic aorta. Emphysematous change is suspected. Biba silar airspace opacities are similar to previous. No large pleural effusion or pneumothorax is seen. The skeletal structures are osteopenic. The bony thorax is grossly intact. IMPRESSION: 1. Stable lines and tubes. 2. Bibasilar airspace opacities are unchanged. ACT 112: Negative or not required by law. Electronically signed by: Shubham Lindsey M.D. 12/06/2020 8:26 AM
[2020-12-06] MEDS: fentaNYL DRIP 1,250 MCG/250 ML BAG IV SCH ×2 (08:55→18:46)
[2020-12-06] MEDS: ASPIRIN 81 MG ECTAB PO SCH (08:56)
[2020-12-06] MEDS: INSULIN GLARGINE SOLOSTAR 100 UNITS/ML 3 ML PEN SQ SCH (08:58)
--- NOTE | 2020-12-06 09:56 | Critical Care Progress Note ---
Date of Service December 06, 2020 Assessment & Plan (1) Pneumonia due to COVID-19 virus: Reason Critically Ill: 70-year-old female with a history of coronary artery bypass grafting, hypertension, obesity, diabetes mellitus type 2 and hyperlipidemia who presented to the hospital due to lethargy and shortness of breath. PLAN: Neuro: Sedation analgesia neuromuscular blockade -Discontinue at 48 hours of cis atracurium and then heavy sedation -We will hold proning as her compliance and oxygenation have marginally improved Resp: Acute hypoxic respiratory failure COVID-19 pneumonia -High PEEP low FiO2 -Did not get remdesivir secondary to renal function, did get Tocilizumab, convalescent plasma not indicated given concern for volume overload -ARDSnet DEXA dosing Fluids/Renal: Hyponatremia: Mild Hyperkalemia: Mild Acute kidney injury: Discussed with nephrology -We will likely need advanced access if unable to transfer to tertiary care in the next 24 to 48 hours ID: Leukocytosis: Afebrile -Likely viral in origin GI/Nutrition: Trickle feeds Heme: Leukocytosis DVT prophylaxis: Heparin 3 times daily Endocrine: ICU hyperglycemia protocol -NovoLog coverage Vascular access: Right IJ CVC, 3 peripherals Code Status: Full code Disposition: Family requesting transfer to [facility], [place] has reportedly accepted awaiting insurance/financial obligation paperwork prior to transfer as I understand this has been designated as a lateral transfer. Patient's daughter: Petra: phone number is [phone]. Her son's phone number Eduard is [phone]. Updated Petra: Discussed current status and prognosis as well as likely need for dialysis in the near future: 24 to 48 hours. That she has provided consent for temporary hemodialysis catheter. We also discussed likely prognosis that patient's will reach 10 to 14-day timeframe of mechanical ventilation and would likely benefit from tracheostomy. If we are unable to extubate the patient Petra reports that the patient wanted a tracheostomy and did not want to pass away. (2) Hypoxia: (3) CAD (coronary artery disease): (4) Encephalopathy: (5) Acute kidney injury: Admission and Anticipated Discharge Date Admission Date: November 30, 2020 Supervising Physician Co-Signing Physician Notes I have personally spent 65 minutes of critical care time in the direct management of this patient. This is a life/limb threatening event. This includes time spent evaluating patient, direct bedside care, chart review, placing orders, interpretation of diagnostic studies, discussion with consultants, patient, and/or family members regarding treatment decisions, as well as other required patient management activities. This time is exclusive of all separately billable procedures, and teaching time and separate from and in addition to any other critical care service time. Subjective Returned to supine status at 5 AM otherwise no overnight events Review of Systems Review of Systems: Unobtainable due to endotracheal tube Physical Exam Physical Exam: General: GCS: 3 TP Skin: Warm, dry, Head: Atraumatic Ears, nose, mouth and throat: airway obscured by endotracheal tube Cardiovascular: Normal peripheral perfusion Respiratory: Ventilator settings reviewed Gastrointestinal: Non distended Musculoskeletal: No deformity Results & Data Results & Data ([facility]) Vital Signs (Past 12 Hours) Vital Signs Temp Pulse Resp BP Pulse Ox 12/06/20 07:55 87 22 91 12/06/20 07:01 37.6 C H 87 91 12/06/20 07:00 37.6 C H 86 97/54 L 91 12/06/20 06:31 37.6 C H 89 91 12/06/20 06:30 37.6 C H 88 103/58 L 90 12/06/20 06:01 37.5 C 87 90 12/06/20 06:00 37.5 C 87 98/56 L 90 12/06/20 05:31 37.4 C 86 90 12/06/20 05:30 37.4 C 86 101/57 L 90 12/06/20 05:01 37.2 C 89 86 L 12/06/20 05:00 37.2 C 87 116/59 L 86 L 12/06/20 04:55 84 22 90 12/06/20 04:54 37.2 C 121/66 91 12/06/20 04:34 37.2 C 83 118/64 90 12/06/20 04:31 37.2 C 79 130/72 90 12/06/20 04:30 37.2 C 84 90 12/06/20 04:00 37.2 C 78 91 12/06/20 03:31 37.2 C 76 91 12/06/20 03:30 37.2 C 75 106/62 91 12/06/20 03:00 37.1 C 78 91 12/06/20 02:30 37.1 C 76 92 12/06/20 02:00 37.1 C 76 92 12/06/20 01:30 37.1 C 76 91 12/06/20 01:00 37.1 C 77 91 12/06/20 00:35 77 12/06/20 00:30 37.0 C 79 91 12/06/20 00:00 37.0 C 83 90 12/05/20 23:48 37.0 C 12/05/20 23:47 90 22 12/05/20 23:30 37.0 C 87 92 12/05/20 23:00 37.0 C 76 92 12/05/20 22:30 37.0 C 78 91 12/05/20 22:00 37.0 C 79 91 Laboratory Results 12/06/20 12/06/20 12/06/20 Range/Units 07:22 04:54 04:54 WBC 14.88 H (4.8-10.8) K/uL RBC 5.08 (4.2-5.4) M/uL Hgb 14.3 (12.0-16.0) g/dL POC Hgb (12.0-16.0) g/dl Hct 42.2 (37-47) % POC Hct (37-47) % MCV 83.1 (80-100) fL MCH 28.1 (25-34) pg MCHC 33.9 (32-36) g/dL RDW Std Deviation 40.0 (36.4-46.3) fL RDW Coeff of Frank 13.2 (11.5-14.5) % Plt Count 345 (130-400) K/uL MPV 10.6 H (7.4-10.4) fL Immature Gran % (Auto) 1.0 % Neut % (Auto) 90.1 % Lymph % (Auto) 8.7 % Dickenson % (Auto) 0.1 % Eos % (Auto) 0.0 % Baso % (Auto) 0.1 % Neut # (Auto) 13.41 H (1.4-6.5) K/uL Lymph # (Auto) 1.29 (1.2-3.4) K/uL Dickenson # (Auto) 0.02 L (0.11-0.59) K/uL Eos # (Auto) 0.00 (0-0.5) K/uL Baso # (Auto) 0.01 (0-0.2) K/uL Immature Gran # (Auto) 0.15 H (0.00-0.02) K/uL Sample Site POC pH (7.35-7.45) POC pCO2 (35-46) mmHg POC pO2 (80-95) mmHg POC HCO3 (19-24) fan/L POC Total CO2 (24-31) mmol/L POC Base Excess (-9-1.8) fan/L ABG pH (Temp Correct) (7.35-7.45) ABG pCO2 (Temp Corrct (35-46) mmHg POC ABG pO2 at Pt Temp POC ABG O2 Sat (90-95) % Micah Test O2 Delivery Device POC O2 Rate POC FiO2 % Tidal Volume PEEP POC Sodium (135-144) mmol/L Sodium 135 L (136-145) mmol/L POC Potassium (3.3-5.0) mmol/L Potassium 5.5 H (3.5-5.1) mmol/L Chloride 103 (98-107) mmol/L Carbon Dioxide 24 (21-32) mmol/L Anion Gap 8.0 (3-11) BUN 111 H (7-18) mg/dl Creatinine 3.51 H (0.6-1.2) mg/dl Est Cr Clr Drug Dosing 14.8 ml/min Est GFR ( Amer) 14.4 ml/min Est GFR (Non-Af Amer) 12.4 ml/min BUN/Creatinine Ratio 31.5 H (10-20) Glucose 243 H (70-99) mg/dl POC Glucose 225 H (70-99) mg/dl Calcium 7.7 L (8.5-10.1) mg/dl Phosphorus 6.0 H (2.5-4.9) mg/dl Magnesium 2.6 H (1.8-2.4) mg/dl Urine Color Urine Appearance (Clear) Urine pH (4.5-7.5) Ur Specific [place] (1.000-1.030) Urine Protein (Negative) Urine Glucose (UA) (Negative) Urine Ketones (Negative) Urine Blood (Negative) Urine Nitrite (Negative) Urine Bilirubin (Negative) Urine Urobilinogen (Negative) Ur Leukocyte Esterase (Negative) Urine WBC (Auto) (0-5) /hpf Urine RBC (Auto) (0-4) /hpf U Hyaline Cast (Auto) (0-5) /lpf U Epithel Cells (Auto) (0-5) /lpf Urine Bacteria (Auto) (Negative) Uric Acid Crystals (None Prsent) 12/06/20 12/06/20 12/05/20 Range/Units 04:30 03:57 22:58 WBC (4.8-10.8) K/uL RBC (4.2-5.4) M/uL Hgb (12.0-16.0) g/dL POC Hgb 13.3 (12.0-16.0) g/dl Hct (37-47) % POC Hct 39 (37-47) % MCV (80-100) fL MCH (25-34) pg MCHC (32-36) g/dL RDW Std Deviation (36.4-46.3) fL RDW Coeff of Frank (11.5-14.5) % Plt Count (130-400) K/uL MPV (7.4-10.4) fL Immature Gran % (Auto) % Neut % (Auto) % Lymph % (Auto) % Dickenson % (Auto) % Eos % (Auto) % Baso % (Auto) % Neut # (Auto) (1.4-6.5) K/uL Lymph # (Auto) (1.2-3.4) K/uL Dickenson # (Auto) (0.11-0.59) K/uL Eos # (Auto) (0-0.5) K/uL Baso # (Auto) (0-0.2) K/uL Immature Gran # (Auto) (0.00-0.02) K/uL Sample Site R Radial POC pH 7.36 (7.35-7.45) POC pCO2 40 (35-46) mmHg POC pO2 66 L (80-95) mmHg POC HCO3 23 (19-24) fan/L POC Total CO2 24 (24-31) mmol/L POC Base Excess -3.0 (-9-1.8) fan/L ABG pH (Temp Correct) 7.353 (7.35-7.45) ABG pCO2 (Temp Corrct 41 (35-46) mmHg POC ABG pO2 at Pt Temp 69 POC ABG O2 Sat 92.0 (90-95) % Micah Test Pass O2 Delivery Device Ventilator POC O2 Rate 22 POC FiO2 30 % Tidal Volume 350 PEEP 14 POC Sodium 132 L (135-144) mmol/L Sodium (136-145) mmol/L POC Potassium 5.2 H (3.3-5.0) mmol/L Potassium (3.5-5.1) mmol/L Chloride (98-107) mmol/L Carbon Dioxide (21-32) mmol/L Anion Gap (3-11) BUN (7-18) mg/dl Creatinine (0.6-1.2) mg/dl Est Cr Clr Drug Dosing ml/min Est GFR ( Amer) ml/min Est GFR (Non-Af Amer) ml/min BUN/Creatinine Ratio (10-20) Glucose (70-99) mg/dl POC Glucose 221 H 188 H (70-99) mg/dl Calcium (8.5-10.1) mg/dl Phosphorus (2.5-4.9) mg/dl Magnesium (1.8-2.4) mg/dl Urine Color Urine Appearance (Clear) Urine pH (4.5-7.5) Ur Specific [place] (1.000-1.030) Urine Protein (Negative) Urine Glucose (UA) (Negative) Urine Ketones (Negative) Urine Blood (Negative) Urine Nitrite (Negative) Urine Bilirubin (Negative) Urine Urobilinogen (Negative) Ur Leukocyte Esterase (Negative) Urine WBC (Auto) (0-5) /hpf Urine RBC (Auto) (0-4) /hpf U Hyaline Cast (Auto) (0-5) /lpf U Epithel Cells (Auto) (0-5) /lpf Urine Bacteria (Auto) (Negative) Uric Acid Crystals (None Prsent) 12/05/20 12/05/20 12/05/20 Range/Units 20:30 20:26 17:40 WBC (4.8-10.8) K/uL RBC (4.2-5.4) M/uL Hgb (12.0-16.0) g/dL POC Hgb (12.0-16.0) g/dl Hct (37-47) % POC Hct (37-47) % MCV (80-100) fL MCH (25-34) pg MCHC (32-36) g/dL RDW Std Deviation (36.4-46.3) fL RDW Coeff of Frank (11.5-14.5) % Plt Count (130-400) K/uL MPV (7.4-10.4) fL Immature Gran % (Auto) % Neut % (Auto) % Lymph % (Auto) % Dickenson % (Auto) % Eos % (Auto) % Baso % (Auto) % Neut # (Auto) (1.4-6.5) K/uL Lymph # (Auto) (1.2-3.4) K/uL Dickenson # (Auto) (0.11-0.59) K/uL Eos # (Auto) (0-0.5) K/uL Baso # (Auto) (0-0.2) K/uL Immature Gran # (Auto) (0.00-0.02) K/uL Sample Site POC pH (7.35-7.45) POC pCO2 (35-46) mmHg POC pO2 (80-95) mmHg POC HCO3 (19-24) fan/L POC Total CO2 (24-31) mmol/L POC Base Excess (-9-1.8) fan/L ABG pH (Temp Correct) (7.35-7.45) ABG pCO2 (Temp Corrct (35-46) mmHg POC ABG pO2 at Pt Temp POC ABG O2 Sat (90-95) % Micah Test O2 Delivery Device POC O2 Rate POC FiO2 % Tidal Volume PEEP POC Sodium (135-144) mmol/L Sodium 136 (136-145) mmol/L POC Potassium (3.3-5.0) mmol/L Potassium 5.1 (3.5-5.1) mmol/L Chloride 103 (98-107) mmol/L Carbon Dioxide 23 (21-32) mmol/L Anion Gap 10.0 (3-11) BUN 105 H (7-18) mg/dl Creatinine 3.61 H D (0.6-1.2) mg/dl Est Cr Clr Drug Dosing 14.4 ml/min Est GFR ( Amer) 13.9 ml/min Est GFR (Non-Af Amer) 12.0 ml/min BUN/Creatinine Ratio 29.0 H (10-20) Glucose 171 H (70-99) mg/dl POC Glucose 177 H (70-99) mg/dl Calcium 8.3 L (8.5-10.1) mg/dl Phosphorus (2.5-4.9) mg/dl Magnesium (1.8-2.4) mg/dl Urine Color Yellow Urine Appearance Turbid A (Clear) Urine pH 5.0 (4.5-7.5) Ur Specific [place] 1.021 (1.000-1.030) Urine Protein Trace H (Negative) Urine Glucose (UA) Negative (Negative) Urine Ketones Negative (Negative) Urine Blood Negative (Negative) Urine Nitrite Negative (Negative) Urine Bilirubin Negative (Negative) Urine Urobilinogen Negative (Negative) Ur Leukocyte Esterase 1+ H (Negative) Urine WBC (Auto) 10-30 H (0-5) /hpf Urine RBC (Auto) 0-4 (0-4) /hpf U Hyaline Cast (Auto) 0 (0-5) /lpf U Epithel Cells (Auto) 20-30 H (0-5) /lpf Urine Bacteria (Auto) 3+ H (Negative) Uric Acid Crystals Present A (None Prsent) 12/05/20 12/05/20 Range/Units 15:50 10:48 WBC (4.8-10.8) K/uL RBC (4.2-5.4) M/uL Hgb (12.0-16.0) g/dL POC Hgb (12.0-16.0) g/dl Hct (37-47) % POC Hct (37-47) % MCV (80-100) fL MCH (25-34) pg MCHC (32-36) g/dL RDW Std Deviation (36.4-46.3) fL RDW Coeff of Frank (11.5-14.5) % Plt Count (130-400) K/uL MPV (7.4-10.4) fL Immature Gran % (Auto) % Neut % (Auto) % Lymph % (Auto) % Dickenson % (Auto) % Eos % (Auto) % Baso % (Auto) % Neut # (Auto) (1.4-6.5) K/uL Lymph # (Auto) (1.2-3.4) K/uL Dickenson # (Auto) (0.11-0.59) K/uL Eos # (Auto) (0-0.5) K/uL Baso # (Auto) (0-0.2) K/uL Immature Gran # (Auto) (0.00-0.02) K/uL Sample Site POC pH (7.35-7.45) POC pCO2 (35-46) mmHg POC pO2 (80-95) mmHg POC HCO3 (19-24) fan/L POC Total CO2 (24-31) mmol/L POC Base Excess (-9-1.8) fan/L ABG pH (Temp Correct) (7.35-7.45) ABG pCO2 (Temp Corrct (35-46) mmHg POC ABG pO2 at Pt Temp POC ABG O2 Sat (90-95) % Micah Test O2 Delivery Device POC O2 Rate POC FiO2 % Tidal Volume PEEP POC Sodium (135-144) mmol/L Sodium (136-145) mmol/L POC Potassium (3.3-5.0) mmol/L Potassium (3.5-5.1) mmol/L Chloride (98-107) mmol/L Carbon Dioxide (21-32) mmol/L Anion Gap (3-11) BUN (7-18) mg/dl Creatinine (0.6-1.2) mg/dl Est Cr Clr Drug Dosing ml/min Est GFR ( Amer) ml/min Est GFR (Non-Af Amer) ml/min BUN/Creatinine Ratio (10-20) Glucose (70-99) mg/dl POC Glucose 160 H 168 H (70-99) mg/dl Calcium (8.5-10.1) mg/dl Phosphorus (2.5-4.9) mg/dl Magnesium (1.8-2.4) mg/dl Urine Color Urine Appearance (Clear) Urine pH (4.5-7.5) Ur Specific [place] (1.000-1.030) Urine Protein (Negative) Urine Glucose (UA) (Negative) Urine Ketones (Negative) Urine Blood (Negative) Urine Nitrite (Negative) Urine Bilirubin (Negative) Urine Urobilinogen (Negative) Ur Leukocyte Esterase (Negative) Urine WBC (Auto) (0-5) /hpf Urine RBC (Auto) (0-4) /hpf U Hyaline Cast (Auto) (0-5) /lpf U Epithel Cells (Auto) (0-5) /lpf Urine Bacteria (Auto) (Negative) Uric Acid Crystals (None Prsent) Coding Level of Care Code Critical Care 1st 30-74 mins Diagnoses Pneumonia due to COVID-19 virus U07.1; J12.82 Hypoxia R09.02 CAD (coronary artery disease) I25.10 Encephalopathy G93.40 Acute kidney injury N17.9
[2020-12-06] MEDS ORDERED: SODIUM BICARBONATE IV ONE (10:15)
[2020-12-06] MEDS ORDERED: WATER IV ONE (10:15)
[2020-12-06] MEDS ORDERED: STERILE IV ONE (10:15)
--- NOTE | 2020-12-06 10:42 | Pharmacy Report ---
Pharmacy Glycemic Short Note 2 - Date of Service December 06, 2020 - Glycemic Short BSG Results (Last 24 hours): 12/05/20 12/05/20 12/05/20 10:48 15:50 17:40 Glucose 171 H POC Glucose 168 H 160 H 12/05/20 12/05/20 12/06/20 20:26 22:58 03:57 Glucose POC Glucose 177 H 188 H 221 H 12/06/20 12/06/20 04:54 07:22 Glucose 243 H POC Glucose 225 H OUTPATIENT ANTIDIABETIC REGIMEN: * Glimepiride 1 mg po daily * A1c 8.8% 09/2020 ASSESSMENT: 12/06 * BSG's very slowly but steadily increased yesterday, which coincided with initiation of Novasource trickle feeds. Initially did not cover CHO as these were only trickle feeds, but based on this change in BSG will now adjust Novolog order to cover trickle feeds as well * In addition, will tighten Novolog correction factor * Will also increase Lantus dose 12/05 * Insulin drip transitioned off yesterday evening * Dexamethasone decreased to 6 mg daily, starting this AM. Novasource renal trickle feeds initiated. * Will decrease Lantus based on hypoglycemia noted a couple of days ago while on dexamethasone 6 mg and Lantus 40 units (total day prior). However, will also have additional supplemental Lantus HS prn BSG >200 mg/dL in the even that the higher dose steroids from yesterday persist and/or initiation of trickle TF causes an increase in BSG * Will loosen Novolog parameters to weight-based severe stress estimate now that steroids have decreased PLAN FOR INPATIENT GLYCEMIC CONTROL: * Lantus 30 units SC x1 this AM with additional 10 units x1 at lunch * Novolog q4h * Goal range: 110-140 mg/dL * Correction factor: 15 mg/dL/unit * Carb ratio: 6 g CHO/unit (to cover Novasource) PLAN FOR DISCHARGE: * To be determined
[2020-12-06] MEDS: PANTOprazole 40 MG in SYRINGE 0 ML IV SCH (10:49)
[2020-12-06] MEDS: dexAMETHasone 6 MG in SYRINGE 0 ML IV SCH (10:49)
[2020-12-06] MEDS: amLODIPine BESYLATE 5 MG TAB PO SCH (10:50)
[2020-12-06] MEDS: ROSUVASTATIN CALCIUM 5 MG TAB PO SCH (10:50)
[2020-12-06] MEDS ORDERED: CISATRACURIUM - STOP ORDER ONE (11:00)
--- NOTE | 2020-12-06 11:25 | Nephrology Progress Note ---
Date of Service December 06, 2020 Assessment & Plan (1) ADONIS (acute kidney injury): worsening acute kidney injury, now stage 2; concern for emerging oliguria but not there yet. Her baseline creatinine in [facility] records is 1.5-1.6 as recently as September 2020. She follows w/ me in CKD clinic (seen 2X in last 3 years though). She was 3.2 on presentation November 30. Trending downward to 2.3 12/04 then back to 3.2 12/05 post intubation, up to 3.5 today. Urine sediment bland. Renal imaging remarkable for mild left greater than right renal atrophy; no infarcts or obstruction seen. Nonspecific bilateral perinephric stranding noted. She has acceptable chemistries but remains volume overloaded in the setting of COVID-19. Not acidemic. -Daily basic metabolic panel -also recheck bmp ordered this PM recommended/ordered by crit care Lasix as needed to optimize respiratory and volume status - none recently No indication for emergent dialysis but more concerning she may need it given K trends, creat/BUN trends Continue strict intake and output (2) Electrolyte and fluid disorder: emerging hyperkalemia on low K TF at low rate; no other obvious meds drivin this > likely from ADONIS. Mild hyponatremia present since admission. Was 130 on presentation. 135 this morning. Some role potentially for elevated blood sugars here. Monitor daily bmp -recommend 500mL bolus this am of sterile water with 75 mEq/L sodium bicarb (3) Pneumonia due to COVID-19 virus: Admission and Anticipated Discharge Date Admission Date: November 30, 2020 Subjective 560 uop yesterday, 670 so far today; sbp soft; family still urging transfer to [facility] and team evaluating if this is feasible; remains intubated Review of Systems Review of Systems: All systems reviewed & are unremarkable except as noted in Subjective Physical Exam Constitutional: well developed, well nourished and + mechanically ventilated; no acute distress Eyes: EOM intact bilaterally ENMT: Ears: no external ear abnormality Nose: no external nose abnormality Mouth: + dry oral mucous membranes Neck: no nuchal rigidity Respiratory: Auscultation: + diminished lung sounds; no crackles and no wheezes Cardiovascular: Rate/Rhythm: regular rate and regular rhythm Extremities: no edema Gastrointestinal (Abdomen): Inspection/Auscultation: normal bowel sounds Percussion/Palpation: abdomen soft; abdomen nontender Musculoskeletal: Extremities: + abnormal strength (paralyzd) Skin: no rashes, warm and dry Psychiatric: Orientation: oriented to person Results & Data ([facility]) Vital Signs (Past 12 Hours) Vital Signs Temp Pulse Resp BP Pulse Ox 12/06/20 10:19 84 22 91 12/06/20 07:55 87 22 91 12/06/20 07:01 37.6 C H 87 91 12/06/20 07:00 37.6 C H 86 97/54 L 91 12/06/20 06:31 37.6 C H 89 91 12/06/20 06:30 37.6 C H 88 103/58 L 90 12/06/20 06:01 37.5 C 87 90 12/06/20 06:00 37.5 C 87 98/56 L 90 12/06/20 05:31 37.4 C 86 90 12/06/20 05:30 37.4 C 86 101/57 L 90 12/06/20 05:01 37.2 C 89 86 L 12/06/20 05:00 37.2 C 87 116/59 L 86 L 12/06/20 04:55 84 22 90 12/06/20 04:54 37.2 C 121/66 91 12/06/20 04:34 37.2 C 83 118/64 90 12/06/20 04:31 37.2 C 79 130/72 90 12/06/20 04:30 37.2 C 84 90 12/06/20 04:00 37.2 C 78 91 12/06/20 03:31 37.2 C 76 91 12/06/20 03:30 37.2 C 75 106/62 91 12/06/20 03:00 37.1 C 78 91 12/06/20 02:30 37.1 C 76 92 12/06/20 02:00 37.1 C 76 92 12/06/20 01:30 37.1 C 76 91 12/06/20 01:00 37.1 C 77 91 12/06/20 00:35 77 12/06/20 00:30 37.0 C 79 91 12/06/20 00:00 37.0 C 83 90 12/05/20 23:48 37.0 C 12/05/20 23:47 90 22 12/05/20 23:30 37.0 C 87 92 Laboratory Results 12/06/20 04:54 12/06/20 04:54
[2020-12-06] MEDS ORDERED: INSULIN GLARGINE SOLOSTAR 100 UNITS/ML 3 ML PEN SQ ONE (12:30)
[2020-12-06 16:24] LABS: BUN Creatinine Ratio 30.2 (10-20); Calcium 8.1 mg/dl (8.5-10.1); Creatinine Clr Calc Pharmacy 13.4 ml/min; Est GFR (African American) 12.8 ml/min; Potassium 5.8 mmol/L (3.5-5.1)
[2020-12-06 16:30] LABS: Magnesium 2.9 mg/dl (1.8-2.4); Phosphorus 7.9 mg/dl (2.5-4.9)
--- NOTE | 2020-12-06 18:37 | Hospitalist Progress Note ---
Date of Service December 06, 2020 Assessment & Plan (1) Hypoxia: (2) Pneumonia due to COVID-19 virus: Present on admission worsening shortness of breath COVID-19 tested positive CXR showed cardiomegaly with pulmonary vascular congestion. Interstitial airspace opacities are seen bilaterally. Started on Dexamethasone 6mg IV daily, will continue Remdesivir did not start due to poor renal function Pt was started on heparin drip since unable to get a CTA chest to r/o PE Hypoxia moslty due to COVID 19. Doubt of PE since no tachycardia and CXR showed infiltrate mostly from COVID 19 Pulm consulted Heparin drip was discontinued Currently on Cpap with 100% oxygen D-dimer 1150, CRP 1.98, Ferritin 945 and ESR 43 Will continue IV dexamethasone Case discussed with the [employer] Work Supervisor might consider to give a low dose of Lasix 20mg IV x1 Case discussed with her Daughter Petra ( ) and answered all her questions Daughter said that pt is FULL code Will transfer to the ICU to monitor closely 12/04 Intubated on vent support with PEEP 16, TV 350 FI02 60 Sedated with Propofol and Nimbex On decadron 10mg daily Inflammatory marker: CRP increase to 5.51. ferritin (935), D-Dimer ( 1030), ESR (42) slightly decreased. No a candidate for Remdesivir since symptoms has been going on for week and also due to renal failure Continue monitor in the ICU Daughter would like patient to transfer to [place] because she is not to happy about the care her mom is receiving at [facility] I called the transfer line in [place] and spoke with Dr. Anmol Corea said that if patient transfers to [place] the care will be the same as what she is getting at [facility] Since transfer as per family request and not because we cannot provide care to patient, [place] would like to get insurance authorization first before they can accept the patient I called to notify daughter that if insurance does not approve the transfer, she might get a hospital bill; and even though insurance approves for the transfer, that she might get a bill for the transport Case management notify and she is working on approval. Once I get the approval that i will call [place] to give auth number. Case management called and the approval department closed for today, will try again tomorrow I called infection disease in [facility] about administering Tocilizumad. Spoke to Dr. Pineda that went over the NIH guideline together. Tocilizumad usually administers within 24hr when pt admits in the ICU and require mechanical Ventilation. Our patient was intubated today after respiratory status worsening on max high flow oxygen. Also Dr. Pineda said that cut of for CRP was 75 mg/l. He does not know if that will provide any benefit on her patient. Daughter has been requested for Tocilizumad to be administered. I explained to daughter about the major risk of Tocilizumad such as GI perforation/bleeding. Daughter understood the risk and agreed for her mother to get it. Spoke to daughter today and informed about the transfer to [facility] As of right now there is no confirmation that patient will be transferred to [place] Case management called the insurance ([employer]). [employer] does not require prior authorization for transfer to [place] since considering a tertiary care [employer] will not guarantee payment for the hospital course. [place] transfer does not want to accept the patient until payment guarantee If [employer] cannot guarantee, the family will be responsible to pay the bill Spoke to daughter Petra again and provided with updates. Daughter said she is going to contact the insurance company Daughter is awared that we will hold the transfer until [place] guarantees payment 12/06 Continue vent support as per claim trainee management Remain on sedation with propofol and fentanyl drip Nimbex was discontinued If patient continues to remain on mechanical ventilation for 10 to 14-days, will need to consider tracheostomy as per claim trainee Continue IV steroid ADONIS Mostly due to acute illness CT showed no urinary calculi or hydronephrosis. Moderate left and mild right renal atrophy with nonspecific bilateral perinephric stranding. Creatinine worsening to 3.8 and potassium 5.8 If potassium continues to rise patient, she might need dialysis [employer] Work Supervisor obtained consent from daughter for temporary hemodialysis catheter. Nephrology on board Avoid nephrotoxic agent Elevated Lactic acid Mostly due to Hypoxia lactate 2.4 and procalcitonin normal Blood cx no growth Lactate normalized Continue to hold on any abx for now Metabolic encephalopathy Mostly related to acute illness/COVID 19 CT head showed no acute intracranial abnormality Currently sedated with propofol and fentanyl CAD Denies any chest Continue aspirin and statin Diabetes Hba1c 10.1 on 12/05/20 Continue insulin sliding with NovoLog and Lantus Pharmacy on board for glycemic management Continue monitor blood sugar DVT px on subcu heparin CODE status full code as per discussion with daughter Petra Disposition Continue monitor in the ICU . Admission and Anticipated Discharge Date Admission Date: November 30, 2020 Subjective Pt was seen and examined for follow up of SOB due to COVID 19 Sedated and intubated on vent support [place] did not process the transfer because the insurance could not guarantee payment Our [employer] Work Supervisor spoke to daughter and pt will not be transferred to [place] Review of Systems Review of Systems: All systems reviewed & are unremarkable except as noted in Subjective Physical Exam Physical Exam: General- sedated with propofol, fentanyl Head- atraumatic Eyes- PERRL, EOMI, ENT- Intubated Neck- supple, no JVD Lungs-Intubated on ruby support Heart- regular rhythm; no murmur Abdomen- normal bowel sounds Neuro- sedated Skin- warm & dry Results & Data Results & Data ([facility]) Vital Signs (Past 12 Hours) Vital Signs Temp Pulse Resp BP Pulse Ox 12/06/20 16:00 85 12/06/20 14:46 85 22 88 L 12/06/20 14:01 37.1 C 83 90 12/06/20 14:00 37.1 C 82 100/59 L 89 L 12/06/20 13:31 37.0 C 87 89 L 12/06/20 13:30 37.1 C 87 118/65 89 L 12/06/20 13:01 37.0 C 83 89 L 12/06/20 13:00 37.0 C 85 106/64 86 L 12/06/20 12:31 36.9 C 85 86 L 12/06/20 12:30 36.9 C 86 22 107/59 L 87 L 12/06/20 12:01 36.9 C 84 87 L 12/06/20 12:00 36.9 C 84 113/64 87 L 12/06/20 11:31 37.2 C 80 92 12/06/20 11:30 37.2 C 81 126/62 92 12/06/20 11:01 37.4 C 87 90 12/06/20 11:00 37.4 C 87 110/55 L 90 12/06/20 10:31 37.4 C 85 90 12/06/20 10:30 37.4 C 86 109/65 90 12/06/20 10:19 84 22 12/06/20 10:01 37.4 C 87 12/06/20 10:00 37.4 C 86 97/62 L 12/06/20 09:31 37.5 C 87 91 12/06/20 09:30 37.5 C 86 102/61 12/06/20 09:01 37.5 C 87 12/06/20 09:00 37.5 C 87 97/66 L 12/06/20 08:31 37.6 C H 87 12/06/20 08:30 37.6 C H 87 94/66 L 90 12/06/20 08:01 37.6 C H 88 12/06/20 08:00 37.6 C H 88 100/59 L 91 12/06/20 07:55 87 22 12/06/20 07:31 37.6 C H 87 12/06/20 07:30 37.6 C H 85 104/61 12/06/20 07:01 37.6 C H 87 12/06/20 07:00 37.6 C H 86 97/54 L 91
[2020-12-07] MEDS: TUBE FEEDING WATER FLUSH OG SCH ×6 (00:06→19:36)
[2020-12-07] MEDS: INSULIN ASPART 100 UNITS/ML 3 ML PEN SC SCH ×6 (00:08→19:34)
[2020-12-07] MEDS: fentaNYL DRIP 1,250 MCG/250 ML BAG IV SCH ×3 (02:27→16:31)
[2020-12-07 04:34] LABS: iSTAT Allen Test Pass; iSTAT Art Bld Gas pCO2 Correct 68 mmHg (35-46); iSTAT Art Bld Gas pH Corrected 7.196 (7.35-7.45); iSTAT Arterial Blood Gas HCO3 26 meg/L (19-24); iSTAT Arterial Blood Gas pCO2 66 mmHg (35-46); iSTAT Arterial Blood Gas pH 7.21 (7.35-7.45); iSTAT Arterial Blood Gas pO2 81 mmHg (80-95); iSTAT Arterial Blood Gas pO2 C 85; iSTAT Carbon Dioxide 28 mmol/L (24-31); iSTAT FiO2 50 %; iSTAT Hematocrit 43 % (37-47); iSTAT Hemoglobin 14.6 g/dl (12.0-16.0); iSTAT Site R Radial; iSTAT Sodium 133 mmol/L (135-144)
[2020-12-07 05:35] LABS: Basophils # (auto) 0.01 K/uL (0-0.2); Basophils % (auto) 0.1 %; Hematocrit (blood only) 43.6 % (37-47); Hemoglobin 14.1 g/dL (12.0-16.0); Immature Granulocytes # (auto) 0.25 K/uL (0.00-0.02); Immature Granulocytes % (auto) 1.4 %; Lymphocytes % (auto) 6.2 %; Mean Corpuscular Hemoglobin 27.5 pg (25-34); Mean Corpuscular Hgb Conc 32.3 g/dL (32-36); Mean Platelet Volume 10.5 fL (7.4-10.4); Monocytes # (auto) 0.42 K/uL (0.11-0.59); Monocytes % (auto) 2.4 %; Neutrophils # (auto) 16.06 K/uL (1.4-6.5); Neutrophils % (auto) 89.9 %; Platelet Count 393 K/uL (130-400); RDW Coefficient of Variation 13.6 % (11.5-14.5); RDW Standard Deviation 42.2 fL (36.4-46.3); Red Blood Count 5.13 M/uL (4.2-5.4); White Blood Count 17.84 K/uL (4.8-10.8)
[2020-12-07] MEDS: HEPARIN SOD 5,000 UNIT/0.5 ML VIAL SQ SCH ×3 (05:44→21:37)
[2020-12-07 06:18] LABS: Albumin Level 2.1 gm/dl (3.4-5.0); BUN Creatinine Ratio 29.9 (10-20); Bilirubin Direct 0.3 mg/dl (0-0.2); Bilirubin,Total 0.8 mg/dl (0.2-1); Calcium 7.8 mg/dl (8.5-10.1); Creatinine Clr Calc Pharmacy 12.5 ml/min; Est GFR (African American) 10.9 ml/min; Est GFR (Non-African American) 9.4 ml/min; Magnesium 2.9 mg/dl (1.8-2.4); Potassium 6.1 mmol/L (3.5-5.1)
[2020-12-07] MEDS ORDERED: INSULIN HUMAN REGULAR PER UNIT 10 UNITS in SYRINGE 9.9 ML IV ONE (06:30)
[2020-12-07] MEDS ORDERED: DEXTROSE 50% 50 ML SYRINGE IV ONE (06:30)
[2020-12-07 06:53] LABS: Phosphorus 8.6 mg/dl (2.5-4.9)
--- NOTE | 2020-12-07 07:53 | Procedure Note ---
Procedure Note Date of Service December 07, 2020 Procedure date: Noted above Procedure: Central venous access, temporary hemodialysis catheter Pre-procedure indication: Need for hemodialysis Post-procedure Diagnosis: same as above Prior to Procedure: Informed Consent: The risks, benefits, indications, potential complications, and alternatives were explained to the patient's daughter and informed consent obtained. Attending Staff: Reddy Sandoval DO Resident/APC: Not applicable Skin Prep: Chlorhexidine Anesthesia: 4 mL 1% lidocaine without epinephrine The identity of the patient was confirmed and a bedside time out was performed. Description of Procedure: After sterile prep and sterile drape utilizing standard sterile technique the superficial skin of the left internal jugular area was anesthetized. The target vessel was identified and entered with an 18- gauge needle. Dark venous blood return was noted. A guidewire was inserted through the needle and into the vessel. The needle was withdrawn and a skin kaylee was made. A tissue dilator was advanced via Seldinger technique and removed. A double lumen catheter was inserted via Seldinger technique and the guidewire removed. All ports claudia and flushed easily. A Biopatch was placed, and the catheter was secured via nylon suture. A sterile dressing was then applied. Complications: None Estimated blood loss: Trace Patient tolerated the procedure well. Procedure Date: Noted Above Procedure: Procedural Ultrasound Indication: Central venous access Attending: Reddy Sandoval DO Resident/Physician Mortgage Funder: Not applicable Artery visualized: Yes Vein visualized: Yes Compressible Vein: Yes Vein patent: Yes Guidewire or Short Catheter seen in vein prior to dilation: Yes Line confirmed in Vein with ultrasound: Yes Lung Sliding on side of attempt (if applicable): NA If no lung sliding or not obtained has CXR been ordered: Yes Impression: Successful central venous access placement Images obtained are saved for permanent record Coding CPT Codes Tubes, Drains, and Vasc Access - Tubes, Drains, and Vasc Access: [id number] Insertion Of Non-tunneled Catheter Age 4 Yrs> ([id number]) Tubes, Drains, and Vasc Access - Tubes, Drains, and Vasc Access: [id number] Ultrasound Guidance For Vascular ([id number]) [facility] Procedure Codes (Charges) Tubes, Drains, and Vasc Access Procedure 1: Tubes, Drains, and Vasc Access: [id number] Insertion Of Non-tunneled Catheter Age 4 Yrs> Procedure 2: Tubes, Drains, and Vasc Access: [id number] Ultrasound Guidance For Vascular
--- NOTE | 2020-12-07 07:59 | Critical Care Progress Note ---
Date of Service December 07, 2020 Assessment & Plan (1) Pneumonia due to COVID-19 virus: Reason Critically Ill: 70-year-old female with a history of coronary artery bypass grafting, hypertension, obesity, diabetes mellitus type 2 and hyperlipidemia who presented to the hospital due to lethargy and shortness of breath. PLAN: Neuro: Sedation analgesia neuromuscular blockade -Finished 48 hours of cis atracurium om 12/06 -We will hold proning as will likely require temporary dialysis Resp: Acute hypoxic respiratory failure COVID-19 pneumonia -High PEEP low FiO2: Currently 50% FiO2 16 PEEP -Did not get remdesivir secondary to renal function, did get Tocilizumab, convalescent plasma not indicated given concern for volume overload -ARDSnet DEXA dosing -Intubation day #3 Fluids/Renal: Hyponatremia: Mild Hyperkalemia: likely require hemodialysis today Acute kidney injury: Worsening -temporary dialysis catheter placed ID: Leukocytosis: Afebrile -Likely viral in origin or secondary to steroids -Pro-Connor will be nondiagnostic given acute kidney injury and dialysis continue to hold anti-infectives GI/Nutrition: Trickle feeds -Bowel regimen Heme: Leukocytosis DVT prophylaxis: Heparin 3 times daily Endocrine: ICU hyperglycemia protocol -NovoLog coverage Vascular access: Right IJ CVC, 3 peripherals, Temp HD cath 12/07 Code Status: Full code Disposition: Family requesting transfer to [facility], [place] has reportedly accepted awaiting insurance/financial obligation paperwork prior to transfer as I understand this has been designated as a lateral transfer. Therefore transfer unlikely to occur. Patient's daughter: Petra: phone number is [phone]. Her son's phone number Eduard is [phone]. Updated Petra: Discussed current status and prognosis as well as likely need for dialysis. Also discussed prognosis and concern for devastating neurologic injury in event of cardiac arrest while undergoing dialysis or in this critical state. I would anticipate that if the patient were to suffer a cardiac arrest and we were successfully able to resuscitate her she would have significant neurologic damage. Petra needs time to process this and we will discuss resuscitative efforts in event of cardiac arrest again. (2) Hypoxia: (3) CAD (coronary artery disease): (4) Encephalopathy: (5) Acute kidney injury: Admission and Anticipated Discharge Date Admission Date: November 30, 2020 Supervising Physician Co-Signing Physician Notes I have personally spent 55 minutes of critical care time in the direct management of this patient. This is a life/limb threatening event. This includes time spent evaluating patient, direct bedside care, chart review, placing orders, interpretation of diagnostic studies, discussion with consultants, patient, and/or family members regarding treatment decisions, as well as other required patient management activities. This time is exclusive of all separately billable procedures, and teaching time and separate from and in addition to any other critical care service time. Subjective No overnight events, renal function continues to worsen dialysis catheter placed this morning Review of Systems Review of Systems: Unobtainable due to endotracheal tube Physical Exam Physical Exam: General: GCS: 3 P Skin: Warm, dry, Head: Atraumatic Ears, nose, mouth and throat: airway obscured by endotracheal tube Cardiovascular: Normal peripheral perfusion Respiratory: Ventilator settings reviewed Gastrointestinal: Non distended Musculoskeletal: No deformity Results & Data Results & Data ([facility]) Vital Signs (Past 12 Hours) Vital Signs Temp Pulse Resp BP Pulse Ox 12/07/20 06:00 37.8 C H 84 108/67 93 12/07/20 05:31 37.9 C H 87 93 12/07/20 05:30 37.9 C H 86 95/63 L 93 12/07/20 05:13 37.9 C H 86 93/46 L 93 12/07/20 05:00 37.9 C H 87 93 12/07/20 04:30 37.8 C H 86 84/62 L 92 12/07/20 04:01 37.7 C H 84 92 12/07/20 04:00 37.7 C H 85 102/59 L 92 12/07/20 03:30 37.6 C H 85 93/52 L 92 12/07/20 03:00 37.5 C 85 86/55 L 92 12/07/20 02:34 85 24 92 12/07/20 02:31 37.2 C 85 92 12/07/20 02:30 37.2 C 86 91/60 L 92 12/07/20 02:01 36.9 C 85 92 12/07/20 02:00 36.9 C 85 94/53 L 92 12/07/20 01:30 36.6 C 84 96/59 L 92 12/07/20 01:01 36.4 C L 82 93 12/07/20 01:00 36.4 C L 82 104/59 L 93 12/07/20 00:31 36.3 C L 79 93 12/07/20 00:30 36.3 C L 80 109/53 L 93 12/07/20 00:01 36.3 C L 78 104/52 L 93 12/07/20 00:00 36.3 C L 78 93 12/06/20 23:31 36.3 C L 79 127/77 92 12/06/20 23:30 36.3 C L 88 93 12/06/20 23:01 36.2 C L 78 93 12/06/20 23:00 36.2 C L 79 100/50 L 93 12/06/20 22:50 23 12/06/20 22:31 36.3 C L 79 93 12/06/20 22:30 36.3 C L 80 92/49 L 93 12/06/20 22:01 36.3 C L 79 92 12/06/20 22:00 36.3 C L 79 89/54 L 92 12/06/20 21:30 36.4 C L 79 90/51 L 92 12/06/20 21:01 36.5 C 82 92 12/06/20 21:00 36.5 C 81 103/57 L 93 12/06/20 20:31 36.6 C 81 93 12/06/20 20:30 36.6 C 80 105/53 L 92 12/06/20 20:01 36.7 C 81 92 12/06/20 20:00 36.7 C 82 84/53 L 92 Laboratory Results 12/07/20 12/07/20 12/07/20 Range/Units 07:03 05:12 05:12 WBC 17.84 H (4.8-10.8) K/uL RBC 5.13 (4.2-5.4) M/uL Hgb 14.1 (12.0-16.0) g/dL POC Hgb (12.0-16.0) g/dl Hct 43.6 (37-47) % POC Hct (37-47) % MCV 85.0 (80-100) fL MCH 27.5 (25-34) pg MCHC 32.3 (32-36) g/dL RDW Std Deviation 42.2 (36.4-46.3) fL RDW Coeff of Frank 13.6 (11.5-14.5) % Plt Count 393 (130-400) K/uL MPV 10.5 H (7.4-10.4) fL Immature Gran % (Auto) 1.4 % Neut % (Auto) 89.9 % Lymph % (Auto) 6.2 % Iron % (Auto) 2.4 % Eos % (Auto) 0.0 % Baso % (Auto) 0.1 % Neut # (Auto) 16.06 H (1.4-6.5) K/uL Lymph # (Auto) 1.10 L (1.2-3.4) K/uL Iron # (Auto) 0.42 (0.11-0.59) K/uL Eos # (Auto) 0.00 (0-0.5) K/uL Baso # (Auto) 0.01 (0-0.2) K/uL Immature Gran # (Auto) 0.25 H (0.00-0.02) K/uL Sample Site POC pH (7.35-7.45) POC pCO2 (35-46) mmHg POC pO2 (80-95) mmHg POC HCO3 (19-24) fan/L POC Total CO2 (24-31) mmol/L POC Base Excess (-9-1.8) fan/L ABG pH (Temp Correct) (7.35-7.45) ABG pCO2 (Temp Corrct (35-46) mmHg POC ABG pO2 at Pt Temp POC ABG O2 Sat (90-95) % Micah Test O2 Delivery Device POC O2 Rate POC FiO2 % Tidal Volume PEEP POC Sodium (135-144) mmol/L Sodium 134 L (136-145) mmol/L POC Potassium (3.3-5.0) mmol/L Potassium 6.1 H* (3.5-5.1) mmol/L Chloride 102 (98-107) mmol/L Carbon Dioxide 26 (21-32) mmol/L Anion Gap 6.0 (3-11) BUN 133 H (7-18) mg/dl Creatinine 4.43 H D (0.6-1.2) mg/dl Est Cr Clr Drug Dosing 12.5 ml/min Est GFR ( Amer) 10.9 ml/min Est GFR (Non-Af Amer) 9.4 ml/min BUN/Creatinine Ratio 29.9 H (10-20) Glucose 125 H (70-99) mg/dl POC Glucose 235 H (70-99) mg/dl Calcium 7.8 L (8.5-10.1) mg/dl Phosphorus 8.6 H (2.5-4.9) mg/dl Magnesium 2.9 H (1.8-2.4) mg/dl Total Bilirubin 0.8 (0.2-1) mg/dl Direct Bilirubin 0.3 H (0-0.2) mg/dl AST 16 (15-37) U/L ALT 18 (12-78) U/L Alkaline Phosphatase 58 (45-117) U/L Total Protein 6.0 L (6.4-8.2) gm/dl Albumin 2.1 L (3.4-5.0) gm/dl 12/07/20 12/07/20 12/06/20 Range/Units 04:18 04:13 23:48 WBC (4.8-10.8) K/uL RBC (4.2-5.4) M/uL Hgb (12.0-16.0) g/dL POC Hgb 14.6 (12.0-16.0) g/dl Hct (37-47) % POC Hct 43 (37-47) % MCV (80-100) fL MCH (25-34) pg MCHC (32-36) g/dL RDW Std Deviation (36.4-46.3) fL RDW Coeff of Frank (11.5-14.5) % Plt Count (130-400) K/uL MPV (7.4-10.4) fL Immature Gran % (Auto) % Neut % (Auto) % Lymph % (Auto) % Iron % (Auto) % Eos % (Auto) % Baso % (Auto) % Neut # (Auto) (1.4-6.5) K/uL Lymph # (Auto) (1.2-3.4) K/uL Iron # (Auto) (0.11-0.59) K/uL Eos # (Auto) (0-0.5) K/uL Baso # (Auto) (0-0.2) K/uL Immature Gran # (Auto) (0.00-0.02) K/uL Sample Site R Radial POC pH 7.21 L (7.35-7.45) POC pCO2 66 H (35-46) mmHg POC pO2 81 (80-95) mmHg POC HCO3 26 H (19-24) fan/L POC Total CO2 28 (24-31) mmol/L POC Base Excess -2.0 (-9-1.8) fan/L ABG pH (Temp Correct) 7.196 L* (7.35-7.45) ABG pCO2 (Temp Corrct 68 H (35-46) mmHg POC ABG pO2 at Pt Temp 85 POC ABG O2 Sat 92.0 (90-95) % Micah Test Pass O2 Delivery Device Ventilator POC O2 Rate 22 POC FiO2 50 % Tidal Volume 300 PEEP 16 POC Sodium 133 L (135-144) mmol/L Sodium (136-145) mmol/L POC Potassium 6.0 H (3.3-5.0) mmol/L Potassium (3.5-5.1) mmol/L Chloride (98-107) mmol/L Carbon Dioxide (21-32) mmol/L Anion Gap (3-11) BUN (7-18) mg/dl Creatinine (0.6-1.2) mg/dl Est Cr Clr Drug Dosing ml/min Est GFR ( Amer) ml/min Est GFR (Non-Af Amer) ml/min BUN/Creatinine Ratio (10-20) Glucose (70-99) mg/dl POC Glucose 129 H 171 H (70-99) mg/dl Calcium (8.5-10.1) mg/dl Phosphorus (2.5-4.9) mg/dl Magnesium (1.8-2.4) mg/dl Total Bilirubin (0.2-1) mg/dl Direct Bilirubin (0-0.2) mg/dl AST (15-37) U/L ALT (12-78) U/L Alkaline Phosphatase (45-117) U/L Total Protein (6.4-8.2) gm/dl Albumin (3.4-5.0) gm/dl 12/06/20 12/06/20 12/06/20 Range/Units 19:39 15:55 15:55 WBC (4.8-10.8) K/uL RBC (4.2-5.4) M/uL Hgb (12.0-16.0) g/dL POC Hgb (12.0-16.0) g/dl Hct (37-47) % POC Hct (37-47) % MCV (80-100) fL MCH (25-34) pg MCHC (32-36) g/dL RDW Std Deviation (36.4-46.3) fL RDW Coeff of Frank (11.5-14.5) % Plt Count (130-400) K/uL MPV (7.4-10.4) fL Immature Gran % (Auto) % Neut % (Auto) % Lymph % (Auto) % Iron % (Auto) % Eos % (Auto) % Baso % (Auto) % Neut # (Auto) (1.4-6.5) K/uL Lymph # (Auto) (1.2-3.4) K/uL Iron # (Auto) (0.11-0.59) K/uL Eos # (Auto) (0-0.5) K/uL Baso # (Auto) (0-0.2) K/uL Immature Gran # (Auto) (0.00-0.02) K/uL Sample Site POC pH (7.35-7.45) POC pCO2 (35-46) mmHg POC pO2 (80-95) mmHg POC HCO3 (19-24) fan/L POC Total CO2 (24-31) mmol/L POC Base Excess (-9-1.8) fan/L ABG pH (Temp Correct) (7.35-7.45) ABG pCO2 (Temp Corrct (35-46) mmHg POC ABG pO2 at Pt Temp POC ABG O2 Sat (90-95) % Micah Test O2 Delivery Device POC O2 Rate POC FiO2 % Tidal Volume PEEP POC Sodium (135-144) mmol/L Sodium 133 L (136-145) mmol/L POC Potassium (3.3-5.0) mmol/L Potassium 5.8 H (3.5-5.1) mmol/L Chloride 101 (98-107) mmol/L Carbon Dioxide 25 (21-32) mmol/L Anion Gap 7.0 (3-11) BUN 117 H (7-18) mg/dl Creatinine 3.87 H D (0.6-1.2) mg/dl Est Cr Clr Drug Dosing 13.4 ml/min Est GFR ( Amer) 12.8 ml/min Est GFR (Non-Af Amer) 11.0 ml/min BUN/Creatinine Ratio 30.2 H (10-20) Glucose 270 H (70-99) mg/dl POC Glucose 232 H 248 H (70-99) mg/dl Calcium 8.1 L (8.5-10.1) mg/dl Phosphorus (2.5-4.9) mg/dl Magnesium (1.8-2.4) mg/dl Total Bilirubin (0.2-1) mg/dl Direct Bilirubin (0-0.2) mg/dl AST (15-37) U/L ALT (12-78) U/L Alkaline Phosphatase (45-117) U/L Total Protein (6.4-8.2) gm/dl Albumin (3.4-5.0) gm/dl 12/06/20 12/06/20 12/06/20 Range/Units 15:55 12:02 12:01 WBC (4.8-10.8) K/uL RBC (4.2-5.4) M/uL Hgb (12.0-16.0) g/dL POC Hgb (12.0-16.0) g/dl Hct (37-47) % POC Hct (37-47) % MCV (80-100) fL MCH (25-34) pg MCHC (32-36) g/dL RDW Std Deviation (36.4-46.3) fL RDW Coeff of Frank (11.5-14.5) % Plt Count (130-400) K/uL MPV (7.4-10.4) fL Immature Gran % (Auto) % Neut % (Auto) % Lymph % (Auto) % Iron % (Auto) % Eos % (Auto) % Baso % (Auto) % Neut # (Auto) (1.4-6.5) K/uL Lymph # (Auto) (1.2-3.4) K/uL Iron # (Auto) (0.11-0.59) K/uL Eos # (Auto) (0-0.5) K/uL Baso # (Auto) (0-0.2) K/uL Immature Gran # (Auto) (0.00-0.02) K/uL Sample Site POC pH (7.35-7.45) POC pCO2 (35-46) mmHg POC pO2 (80-95) mmHg POC HCO3 (19-24) fan/L POC Total CO2 (24-31) mmol/L POC Base Excess (-9-1.8) fan/L ABG pH (Temp Correct) (7.35-7.45) ABG pCO2 (Temp Corrct (35-46) mmHg POC ABG pO2 at Pt Temp POC ABG O2 Sat (90-95) % Micah Test O2 Delivery Device POC O2 Rate POC FiO2 % Tidal Volume PEEP POC Sodium (135-144) mmol/L Sodium (136-145) mmol/L POC Potassium (3.3-5.0) mmol/L Potassium (3.5-5.1) mmol/L Chloride (98-107) mmol/L Carbon Dioxide (21-32) mmol/L Anion Gap (3-11) BUN (7-18) mg/dl Creatinine (0.6-1.2) mg/dl Est Cr Clr Drug Dosing ml/min Est GFR ( Amer) ml/min Est GFR (Non-Af Amer) ml/min BUN/Creatinine Ratio (10-20) Glucose (70-99) mg/dl POC Glucose 286 H 304 H* (70-99) mg/dl Calcium (8.5-10.1) mg/dl Phosphorus 7.9 H D (2.5-4.9) mg/dl Magnesium 2.9 H (1.8-2.4) mg/dl Total Bilirubin (0.2-1) mg/dl Direct Bilirubin (0-0.2) mg/dl AST (15-37) U/L ALT (12-78) U/L Alkaline Phosphatase (45-117) U/L Total Protein (6.4-8.2) gm/dl Albumin (3.4-5.0) gm/dl Coding Level of Care Code Critical Care 1st 30-74 mins Diagnoses Pneumonia due to COVID-19 virus U07.1; J12.82 Hypoxia R09.02 CAD (coronary artery disease) I25.10 Encephalopathy G93.40 Acute kidney injury N17.9
--- NOTE | 2020-12-07 08:32 | XRay Report ---
XR chest 1V portable CLINICAL HISTORY: Respiratory failure COMPARISON STUDY: 12/06/2020 FINDINGS: There are postsurgical changes of midline sternotomy. The heart is normal in size. There is an endotracheal tube positioned 35 mm above the michael. An enteric tube passes the stomach. There is a right internal jugular central venous catheter with its tip at the level of the atriocaval junctio n. There is a left internal jugular central venous catheter with its tip at the level the atriocaval junction. There is no pneumothorax. There are persistent bibasilar interstitial opacities.[ IMPRESSION: 1. Interval placement of a left internal jugular central venous catheter. There is no pneumothorax. 2. Persistent bibasilar interstitial opacities ACT 112: Negative or not required by law. Electronically signed by: Jakub Khan M.D. 12/07/2020 8:31 AM
[2020-12-07] MEDS ORDERED: SODIUM CHLORIDE 0.9% 1000ML 1,000 ML IV PRN (08:43)
[2020-12-07] MEDS ORDERED: SENNA 8.6 MG TAB PO SCH (09:00)
[2020-12-07] MEDS ORDERED: dexAMETHasone 10 MG in SYRINGE 0 ML IV SCH ×2 (09:00→20:00)
[2020-12-07] MEDS: INSULIN GLARGINE SOLOSTAR 100 UNITS/ML 3 ML PEN SQ SCH (09:17)
[2020-12-07] MEDS: PANTOprazole 40 MG in SYRINGE 0 ML IV SCH (09:20)
[2020-12-07] MEDS: ROSUVASTATIN CALCIUM 5 MG TAB PO SCH (09:20)
[2020-12-07] MEDS: dexAMETHasone 6 MG in SYRINGE 0 ML IV SCH (09:20)
[2020-12-07] MEDS: amLODIPine BESYLATE 5 MG TAB PO SCH (09:21)
--- NOTE | 2020-12-07 09:30 | Nephrology Progress Note ---
Date of Service December 07, 2020 Assessment & Plan (1) ADONIS (acute kidney injury): worsening acute kidney injury, now stage 3 and oliguric. Her baseline creatinine in [facility] records is 1.5-1.6 as recently as September 2020. She follows w/ me in CKD clinic (seen 2X in last 3 years though). She was 3.2 on presentation November 30. Trending downward to 2.3 12/04 then back to 3.2 12/05 post intubation, up to 4.4 today. Urine sediment bland. Renal imaging remarkable for mild left greater than right renal atrophy; no infarcts or obstruction seen. Nonspecific bilateral perinephric stranding noted. She has acceptable chemistries but remains volume overloaded in the setting of COVID-19. Not aci demic. -Daily basic metabolic panel -for urgent dialysis today to manage hyperkalemia, uremia, optimize acid /base > 2.5 hr, 500 mL UF as BP tolerates; small dialyzer -may need pressor to tolerate HD - critical care aware -HD indications/alternatives/risks-benefits and consent obtained from Petra moore, daughter, by phone > on chart -plan tentatively to treat w/ HD 3 days in a row then observe but this will depend on clinical status Lasix as needed to optimize respiratory and volume status - none recently Continue strict intake and output (2) Electrolyte and fluid disorder: hyperkalemia for HD today respiratory acidosis Mild hyponatremia present since admission. Was 130 on presentation. 133 this morning. Some role potentially for elevated blood sugars here. Monitor daily bmp/abg (3) Pneumonia due to COVID-19 virus: per primary service Present on Admission?: Yes Admission and Anticipated Discharge Date Admission Date: November 30, 2020 Subjective urine output dropped yesterday to 290 mL; overall 1.1 L positive on the admission; this AM K 6.1; in consultation w/ me, dialysis cath placed; plan to prone pt later today Review of Systems Review of Systems: Unobtainable due to endotracheal tube Physical Exam Constitutional: well developed, well nourished and + mechanically ventilated; no acute distress ENMT: Ears: no external ear abnormality Nose: no external nose abnormality Mouth: + dry oral mucous membranes Neck: no nuchal rigidity Respiratory: Auscultation: lungs clear to auscultation bilaterally and + diminished lung sounds; no crackles and no wheezes Cardiovascular: RRR, no murmur, no edema Gastrointestinal (Abdomen): Inspection/Auscultation: normal bowel sounds; abdomen not distended and no abdominal edema Percussion/Palpation: abdomen soft; abdomen nontender Musculoskeletal: Extremities: + abnormal strength (paralyzed) Skin: no rashes, warm and dry Psychiatric: Orientation: oriented to person Genitourinary: kim w/ scant light yellow urine Results & Data ([facility]) Vital Signs (Past 12 Hours) Vital Signs Temp Pulse Resp BP Pulse Ox 12/07/20 08:45 84 23 94 12/07/20 06:00 37.8 C H 84 108/67 93 12/07/20 05:31 37.9 C H 87 93 12/07/20 05:30 37.9 C H 86 95/63 L 93 12/07/20 05:13 37.9 C H 86 93/46 L 93 12/07/20 05:00 37.9 C H 87 93 12/07/20 04:30 37.8 C H 86 84/62 L 92 12/07/20 04:01 37.7 C H 84 92 12/07/20 04:00 37.7 C H 85 102/59 L 92 12/07/20 03:30 37.6 C H 85 93/52 L 92 12/07/20 03:00 37.5 C 85 86/55 L 92 12/07/20 02:34 85 24 92 12/07/20 02:31 37.2 C 85 92 12/07/20 02:30 37.2 C 86 91/60 L 92 12/07/20 02:01 36.9 C 85 92 12/07/20 02:00 36.9 C 85 94/53 L 92 12/07/20 01:30 36.6 C 84 96/59 L 92 12/07/20 01:01 36.4 C L 82 93 12/07/20 01:00 36.4 C L 82 104/59 L 93 12/07/20 00:31 36.3 C L 79 93 12/07/20 00:30 36.3 C L 80 109/53 L 93 12/07/20 00:01 36.3 C L 78 104/52 L 93 12/07/20 00:00 36.3 C L 78 93 12/06/20 23:31 36.3 C L 79 127/77 92 12/06/20 23:30 36.3 C L 88 93 12/06/20 23:01 36.2 C L 78 93 12/06/20 23:00 36.2 C L 79 100/50 L 93 12/06/20 22:50 23 12/06/20 22:31 36.3 C L 79 93 12/06/20 22:30 36.3 C L 80 92/49 L 93 12/06/20 22:01 36.3 C L 79 92 12/06/20 22:00 36.3 C L 79 89/54 L 92 12/06/20 21:30 36.4 C L 79 90/51 L 92 Laboratory Results 12/07/20 05:12 12/07/20 05:12 ABG this AM > 7.20/68/81/26 on 50% Fi02 phos 8.6, alb 2.1 Diagnostic Findings cxr reviewed > still interstitial opacities plm; no PTX
[2020-12-07] MEDS ORDERED: STAT IV Infusion **Titration per Protocol STA ×2 (09:38→15:44)
[2020-12-07] MEDS: NOREPINEPHRINE/D5W 8 MG/508 ML BAG IV SCH (10:03)
[2020-12-07 10:09] LABS: Hepatitis B Surface Ab Quant < 3.10 mIU/mL (>or=10mIU/mL Immune); Hepatitis B Surface Antibody Non-Immune
[2020-12-07 10:20] LABS: Hepatitis B Surf Ag Rflx Conf Neg (Neg)
--- NOTE | 2020-12-07 10:23 | Pharmacy Report ---
Pharmacy Glycemic Short Note 2 - Date of Service December 07, 2020 - Glycemic Short BSG Results (Last 24 hours): 12/06/20 12/06/20 12/06/20 12:01 12:02 15:55 Glucose 270 H POC Glucose 304 H* 286 H 12/06/20 12/06/20 12/06/20 15:55 19:39 23:48 Glucose POC Glucose 248 H 232 H 171 H 12/07/20 12/07/20 12/07/20 04:13 05:12 07:03 Glucose 125 H POC Glucose 129 H 235 H OUTPATIENT ANTIDIABETIC REGIMEN: * Glimepiride 1 mg po daily * A1c 8.8% 09/2020 ASSESSMENT: 12/07 * BSG's continued to increase yesterday despite interventions - dual etiology of hyperglycemia being Novasource trickle feeds and also worsening kidney function causing insulin resistance. However, HD to be initiated today which can abruptly increase insulin sensitivity. * Novolog parameters significantly tightened last night, which is appropriate for now based on hyperglycemia, but I will loosen significantly post-HD. This will still be an aggressive regimen at weight-based severe stress estimate, which is appropriate based on severity of illness and steroid use * Will not provide a higher dose of Lantus today as the effects will persist post-HD and would like to avoid an abrupt decrease in BSG's post-HD. Also - recent history of hypoglycemia while on the same dose of dexamethasone as current when patient received Lantus 40 units (total day prior). Will instead scale for this evening based on BSG * Although Novasource is contributing to hyperglycemia, a change in CHO ratio is not indicated at that time as the tubefeed rates are so low (7 g CHO q4h) that significantly tightening CHO ratio will have a limited effect on insulin delivered now, but may precipitate hypoglycemia if tubefeed rates are increased later 12/06 * BSG's very slowly but steadily increased yesterday, which coincided with initiation of Novasource trickle feeds. Initially did not cover CHO as these were only trickle feeds, but based on this change in BSG will now adjust Novolog order to cover trickle feeds as well * In addition, will tighten Novolog correction factor * Will also increase Lantus dose PLAN FOR INPATIENT GLYCEMIC CONTROL: * Lantus 30 units SC x1 this AM with additional 10 units HS if BSG >200 mg/dL * Novolog q4h * Goal range: 110-140 mg/dL * Correction factor: 10 mg/dL/unit for now. Loosen to 20 mg/dL/unit post-HD * Carb ratio: 6 g CHO/unit (to cover Novasource) PLAN FOR DISCHARGE: * To be determined
[2020-12-07] MEDS: propofoL 1,000 MG/100 ML VIAL IV SCH ×2 (10:38→16:31)
[2020-12-07] MEDS: SENNOSIDES 8.8 MG/5 ML UDC PO SCH (10:42)
[2020-12-07] MEDS: ASPIRIN 81 MG CHEW PO SCH (10:42)
[2020-12-07] MEDS: ALBUMIN 25% 12.5 GM/50 ML VIAL IV SCH ×3 (12:15→12:56)
--- NOTE | 2020-12-07 13:08 | Post Anesthesia Assessment ---
Date of Service December 07, 2020 Post Sedation Assessment Vital Signs Temp Pulse Pulse Resp BP Pulse Ox 12/07/20 11:45 85 130/55 L 12/07/20 11:30 87 98/81 L 12/07/20 11:15 81 107/52 L 12/07/20 11:00 80 84/53 L 12/07/20 10:55 85 23 95 12/07/20 10:45 85 92/51 L 12/07/20 10:30 78 112/51 L 12/07/20 10:18 72 110/66 12/07/20 10:00 36.5 C 95 H 12/07/20 08:45 84 23 94 12/07/20 08:00 80 12/07/20 06:00 37.8 C H 84 108/67 93 12/07/20 05:31 37.9 C H 87 93 12/07/20 05:30 37.9 C H 86 95/63 L 93 12/07/20 05:13 37.9 C H 86 93/46 L 93 12/07/20 05:00 37.9 C H 87 93 12/07/20 04:30 37.8 C H 86 84/62 L 92 12/07/20 04:01 37.7 C H 84 92 12/07/20 04:00 37.7 C H 85 102/59 L 92 12/07/20 03:30 37.6 C H 85 93/52 L 92 12/07/20 03:00 37.5 C 85 86/55 L 92 12/07/20 02:34 85 24 92 12/07/20 02:31 37.2 C 85 92 12/07/20 02:30 37.2 C 86 91/60 L 92 12/07/20 02:01 36.9 C 85 92 12/07/20 02:00 36.9 C 85 94/53 L 92 12/07/20 01:30 36.6 C 84 96/59 L 92 12/07/20 01:01 36.4 C L 82 93 12/07/20 01:00 36.4 C L 82 104/59 L 93 12/07/20 00:31 36.3 C L 79 93 12/07/20 00:30 36.3 C L 80 109/53 L 93 12/07/20 00:01 36.3 C L 78 104/52 L 93 12/07/20 00:00 36.3 C L 78 93 12/06/20 23:31 36.3 C L 79 127/77 92 12/06/20 23:30 36.3 C L 88 93 12/06/20 23:01 36.2 C L 78 93 12/06/20 23:00 36.2 C L 79 100/50 L 93 12/06/20 22:50 23 12/06/20 22:31 36.3 C L 79 93 12/06/20 22:30 36.3 C L 80 92/49 L 93 12/06/20 22:01 36.3 C L 79 92 12/06/20 22:00 36.3 C L 79 89/54 L 92 12/06/20 21:30 36.4 C L 79 90/51 L 92 12/06/20 21:01 36.5 C 82 92 12/06/20 21:00 36.5 C 81 103/57 L 93 12/06/20 20:31 36.6 C 81 93 12/06/20 20:30 36.6 C 80 105/53 L 92 12/06/20 20:01 36.7 C 81 92 12/06/20 20:00 36.7 C 82 84/53 L 92 12/06/20 19:31 36.8 C 82 91 12/06/20 19:30 36.8 C 82 92/55 L 92 12/06/20 19:01 36.9 C 82 92 12/06/20 19:00 36.9 C 82 23 98/55 L 92 12/06/20 18:45 36.9 C 84 91 12/06/20 16:00 85 12/06/20 14:46 85 22 88 L 12/06/20 14:01 37.1 C 83 90 12/06/20 14:00 37.1 C 82 100/59 L 89 L 12/06/20 13:31 37.0 C 87 89 L 12/06/20 13:30 37.1 C 87 118/65 89 L Discharge Sedation Level of Care: Higher Level of Care Post Sedation Plan On clinical assessment, the patient appears to have tolerated the sedation without complications. Patient is recovering as anticipated. Patient will continue to be monitored by nursing and may be discharged when sedation discharge criteria are met per below protocol. Upon Completions of procedure up to 15 minutes continue every 5 minute vital signs and the P.A.R. score; then discharge to a Phase I or Fast Track to Phase II per the following guidelines: * Discharge Patient to appropriate Phase II area if PAR is 8 or greater or return to pre- procedure baseline. The post - procedure orders will be as directed. * If PAR score is less than 8 or not return to pre-procedure baseline then patient will follow Phase I monitoring till PAR is reached for Phase II. The Phase I may be done in procedure room or may call to secure a Phase I area. * If naloxone or flumazenil are used for reversal, hold in Phase I for continued monitoring from when last reversal dose was given for a minimum of 60 minutes or longer pending the nurse and/or physician discretion of patient condition before discharge to Phase II. Please call the Sedation Physician to re-evaluate and complete post-note for discharge to Phase II area. Do NOT discharge from procedure sedation or Phase 1 until post- sedation evaluation note is complete by procedure /sedation MD Sedation Discharge Instructions to be given to the patient at discharge to home. Given 100mcg Fentanyl 10mg Etomidate Progressed to deep sedation and required 30 seconds of BVM ventilation. Total sedation time 30 minutes Patient to remain in ICU [facility] Procedure Codes (Charges) Sedation/Anesthesia Procedure 1: Sedation/Anesthesia: 93651 Mod Sedation by a different physician ;Init15 Min Child Age 5&Up Total Sedation Time (minutes): 30 Procedure 2: Sedation/Anesthesia: 60773 Mod Sedation by a different physician;Ea Additional 15 Minutes Total Sedation Time (minutes): 30
--- NOTE | 2020-12-07 15:01 | Hospitalist Progress Note ---
Date of Service December 07, 2020 Assessment & Plan (1) Hypoxia: Secondary to COVID-19 infection (2) Pneumonia due to COVID-19 virus: Present on admission with worsening shortness of breath for about 2 weeks and confusion COVID-19 tested positive with possible contact with someone around with Covid positivity CXR showed cardiomegaly with pulmonary vascular congestion. Interstitial airspace opacities are seen bilaterally. Started on Dexamethasone 6mg IV daily and has been continuing Was not qualified for intravenous Remdesivir due to elevated creatinine Pt was started on heparin drip since unable to get a CTA chest to r/o PE and later on discontinued Initially was on CPAP with 100% oxygen Appreciate pulmonary input and recommendation Later on transferred to ICU on 12/04/2020 and was intubated on the same day Subsequent D-dimer 1150, CRP 1.98 and increased on 12/03/2020, Ferritin 945 and ESR 43 Received Tocilizumab on 12/04/2020 after discussion with ID in [place] by the hospitalist Will continue current management Her condition is critical but remains stable Remains on mechanical ventilator since 12/04/2020 Setting with High PEEP low FiO2: Currently 50% FiO2 16 PEEP on 12/07/2020 Management as per sample builder Sedated with Propofol and Nimbex and later changed to propofol and fentanyl Continue monitor in the ICU Daughter is being updated by the sample builder Conditions remains stable but critical Leukocytosis Afebrile and procalcitonin remains unremarkable Urine culture is growing E. coli Intravenous ceftriaxone has been started Documentation noted in the chart by prior hospitalist: Daughter would like patient to transfer to [facility] because she is not to happy about the care her mom is receiving at [facility] Prior hospitalist Dr. Hong try to transfer the patient under Dr. Rolon in [facility] in the detailed conversation as listed below. Dr Corea said that if patient transfers to [facility] the care will be the same as what she is getting at [facility] Since transfer as per family request and not because we cannot provide care to patient, [facility] would like to get insurance authorization first before they can accept the patient I called to notify daughter that if insurance does not approve the transfer, she might get a hospital bill; and even though insurance approves for the transfer, that she might get a bill for the transport Case management notify and she is working on approval. Once I get the approval that i will call [facility] to give auth number. Case management called and the approval department closed for today, will try again tomorrow Spoke to daughter today and informed about the transfer to [facility] As of right now there is no confirmation that patient will be transferred to [facility] Case management called the insurance ([employer]). [employer] does not require prior au thorization for transfer to [facility] since considering a tertiary care [employer] will not guarantee payment for the hospital course. [facility] transfer does not want to accept the patient until payment guarantee If [employer] cannot guarantee, the family will be responsible to pay the bill Spoke to pricilla Lambert again and provided with updates. Daughter said she is going to contact the insurance company Daughter is awared that we will hold the transfer until [facility] guarantees payment Case management has been in touch with the daughter and the transfer service The sample builder is also in in the loop regarding transfer. ADONIS Mostly due to acute illness CT showed no urinary calculi or hydronephrosis. Moderate left and mild right renal atrophy with nonspecific bilateral perinephric stranding. Creatinine worsening to 3.8 and potassium 5.8 If potassium continues to rise patient, she might need dialysis Appreciate nephrology input and recommendation Temporary line for dialysis has been set She is getting dialysis starting today-12/07/2020 Elevated Lactic acid Mostly due to Hypoxia lactate 2.4 and procalcitonin normal Blood cx no growth Lactate normalized Continue to hold on any abx for now Metabolic encephalopathy Mostly related to acute illness/COVID 19 CT head showed no acute intracranial abnormality Currently sedated with propofol and fentanyl CAD Denies any chest Continue aspirin and statin Diabetes Hba1c 10.1 on 12/05/20 Continue insulin sliding with NovoLog and Lantus Pharmacy on board for glycemic management Continue monitor blood sugar DVT px on subcu heparin CODE status full code as per discussion with pricilla Lambert Disposition Continue monitor in the ICU . Admission and Anticipated Discharge Date Admission Date: November 30, 2020 Subjective 12/07/2020 The patient was seen and examined in ICU She is intubated and sedated and requiring pressor resents to maintain blood pressure She is also having hemodialysis today Review of Systems Review of Systems: Unobtainable due to endotracheal tube Physical Exam Physical Exam: Lying in bed, sedated on vent with ongoing hemodialysis Constitutional: well developed, well nourished and + ill appearing Eyes: Closed ENMT: external ear and nose normal, oropharynx normal Neck: trachea midline, no thyromegaly Has left IJ line placed Respiratory: On mechanical ventilator Cardiovascular: Rate/Rhythm: regular rate and regular rhythm Heart Sounds: no murmur Extremities: no edema Gastrointestinal (Abdomen): Inspection/Auscultation: normal bowel sounds; abdomen not distended Percussion/Palpation: abdomen soft Musculoskeletal: No acute inflamed joint Neurologic: Remains sedated on mechanical ventilator Lymphatic: no cervical or axillary lymphadenopathy Results & Data Results & Data ([facility]) Vital Signs (Past 12 Hours) Vital Signs Temp Pulse Pulse Resp BP BP Pulse Ox 12/07/20 13:00 36.0 C L 162/63 H 12/07/20 12:30 113 H 100/72 12/07/20 12:15 118 H 119/59 L 12/07/20 12:00 124 H 84/58 L 12/07/20 11:45 85 130/55 L 12/07/20 11:30 87 98/81 L 12/07/20 11:15 81 107/52 L 12/07/20 11:00 80 84/53 L 12/07/20 10:55 85 23 95 12/07/20 10:45 85 92/51 L 12/07/20 10:30 78 112/51 L 12/07/20 10:18 72 110/66 12/07/20 10:00 36.5 C 95 H 12/07/20 08:45 84 23 94 12/07/20 08:00 80 12/07/20 06:00 37.8 C H 84 108/67 93 12/07/20 05:31 37.9 C H 87 93 12/07/20 05:30 37.9 C H 86 95/63 L 93 12/07/20 05:13 37.9 C H 86 93/46 L 93 12/07/20 05:00 37.9 C H 87 93 12/07/20 04:30 37.8 C H 86 84/62 L 92 12/07/20 04:01 37.7 C H 84 92 12/07/20 04:00 37.7 C H 85 102/59 L 92 12/07/20 03:30 37.6 C H 85 93/52 L 92 12/07/20 03:00 37.5 C 85 86/55 L 92 Laboratory Results Short CBC 12/07/20 Range/Units 05:12 WBC 17.84 H (4.8-10.8) K/uL Hgb 14.1 (12.0-16.0) g/dL Hct 43.6 (37-47) % Plt Count 393 (130-400) K/uL BMP 12/06/20 12/07/20 15:55 05:12 Sodium 133 L 134 L Potassium 5.8 H 6.1 H* Chloride 101 102 Carbon Dioxide 25 26 BUN 117 H 133 H Creatinine 3.87 H D 4.43 H D Glucose 270 H 125 H Calcium 8.1 L 7.8 L Liver Function 12/07/20 Range/Units 05:12 Total Bilirubin 0.8 (0.2-1) mg/dl Direct Bilirubin 0.3 H (0-0.2) mg/dl AST 16 (15-37) U/L ALT 18 (12-78) U/L Alkaline Phosphatase 58 (45-117) U/L Albumin 2.1 L (3.4-5.0) gm/dl Medications Administered Current Inpatient Medications Amlodipine Besylate (Amlodipine Besylate 5 Mg Tab) 5 mg PO QAM SVEN Stop: 12/31/20 08:59 Last Admin: 12/07/20 09:21 Dose: Not Given Documented by: Aspirin (Aspirin 81 Mg Chew) 81 mg PO QAM SVEN Stop: 01/06/21 08:59 Last Admin: 12/07/20 10:42 Dose: 81 mg Documented by: Dextrose (Dextrose 50% 50 Ml Syringe) 25 - 50 ml IV UD PRN; Protocol PRN Reason: Hypoglycemia Protocol Stop: 12/30/20 23:38 Last Admin: 12/04/20 20:05 Dose: 25 ml Documented by: Enteral Nutritional Formula (Novasource Renal 2.0 Connor 1000ml Bag) 1,000 ml OG UD SVEN; Protocol Stop: 01/04/21 12:14 Last Admin: 12/05/20 14:55 Dose: 1,000 ml Documented by: Fentanyl Citrate (Fentanyl Bolus From Bag) 50 mcg IV Q60M PRN PRN Reason: Pain or Agitation Stop: 12/18/20 08:44 Glucagon (Glucagon For Inj 1 Mg Vial) 1 mg SQ UD PRN; Protocol PRN Reason: Hypoglycemia Protocol Stop: 12/30/20 23:38 Glucose (Glucose 10 Tabs/Tube) 4 - 8 tabs PO UD PRN; Protocol PRN Reason: Hypoglycemia Protocol Stop: 12/30/20 23:38 Glucose (Glucose 40% Gel 15 Gm Tube) 15 - 30 gm PO UD PRN; Protocol PRN Reason: Hypoglycemia Protocol Stop: 12/30/20 23:38 Heparin Sodium (Porcine) (Heparin Sod 5,000 Unit/0.5 Ml Vial) 5,000 units SQ Q8 SVEN Stop: 12/31/20 17:29 Last Admin: 12/07/20 13:30 Dose: 5,000 units Documented by: Promethazine HCl 12.5 mg/ (Sodium Chloride) 50.5 mls @ 202 mls/hr IV Q6H PRN PRN Reason: Nausea And Vomiting Stop: 12/30/20 23:38 Fentanyl Citrate (Fentanyl Drip) 1,250 mcg in 250 mls @ 35 mls/hr IV .Q7H9M PENDING SALE TO [facility]; Protocol Stop: 12/18/20 08:44 Last Admin: 12/07/20 09:23 Dose: 175 mcg/hr, 35 mls/hr Documented by: Dexamethasone 6 mg/ Syringe 1.5 mls @ 1 mls/min IV DAILY SVEN Stop: 12/09/20 23:59 Last Admin: 12/07/20 09:20 Dose: 1 mls/min Documented by: Pantoprazole Sodium 40 mg/ (Syringe) 10 mls @ 5 mls/min IV QAM PENDING SALE TO [facility] Stop: 01/05/21 08:59 Last Admin: 12/07/20 09:20 Dose: 5 mls/min Documented by: Norepinephrine Bitartrate (Levophed/D5w) 8 mg in 508 mls @ 17.393 mls/hr IV .Q24H PENDING SALE TO [facility]; Protocol Stop: 01/06/21 09:44 Last Admin: 12/07/20 10:03 Dose: 0.05 mcg/kg/min, 17.4 mls/hr Documented by: Albumin Human (Albumin 25%) 12.5 gm in 50 mls @ 50 mls/hr IV Q1H PENDING SALE TO [facility] Stop: 12/07/20 16:14 Last Admin: 12/07/20 12:56 Dose: 50 mls/hr Documented by: Ceftriaxone Sodium 2,000 mg/ (Dextrose) 70 mls @ 140 mls/hr IV DAILY@1400 SVEN; Protocol Stop: 12/14/20 13:59 Insulin Aspart (Insulin Aspart 100 Units/Ml 3 Ml Pen) 0 units SC Q4 SVEN; Protocol Stop: 12/07/20 15:59 Last Admin: 12/07/20 12:52 Dose: 6 units Documented by: Insulin Aspart (Insulin Aspart 100 Units/Ml 3 Ml Pen) 0 units SC Q4 SVEN; Protocol Stop: 01/06/21 15:59 Insulin Glargine (Insulin Glargine Solostar 100 Units/Ml 3 Ml Pen) 30 units SQ QAM PENDING SALE TO [facility]; Protocol Stop: 01/04/21 08:59 Last Admin: 12/07/20 09:17 Dose: 30 units Documented by: Insulin Glargine (Insulin Glargine Solostar 100 Units/Ml 3 Ml Pen) 0 units SQ DAILY@2000 SVEN; Protocol Stop: 01/06/21 19:59 Levalbuterol HCl (Levalbuterol Hcl 1.25 Mg/3 Ml Neb) 1.25 mg NEB NOW PRN PRN Reason: Shortness Of Breath Or Wheezing Stop: 01/03/21 13:46 Metoclopramide HCl (Metoclopramide Hcl 10 Mg/10 Ml Udc) 10 mg NG Q6 SVEN Stop: 12/09/20 12:01 Miscellaneous (Carbohydrates For Hypoglycemia ) 15 - 30 gm PO UD PRN PRN Reason: Hypoglycemia Protocol Stop: 12/30/20 23:38 Miscellaneous Information (Pharmacy Glycemic Mgmt Consult) 1 ea N/A UD PRN PRN Reason: Consult Stop: 12/31/20 16:59 Nutritional Formula (Prosource No Carb 30 Ml/Pkt) 30 ml OG DAILY PENDING SALE TO [facility] Stop: 01/07/21 08:59 Rosuvastatin Calcium (Rosuvastatin Calcium 5 Mg Tab) 5 mg PO DAILY SVEN Stop: 12/31/20 08:59 Last Admin: 12/07/20 09:20 Dose: 5 mg Documented by: Sennosides (Sennosides 8.8 Mg/5 Ml Udc) 8.8 mg PO QAM SVEN Stop: 01/06/21 08:59 Last Admin: 12/07/20 10:42 Dose: 8.8 mg Documented by: Sterile Water (Tube Feeding Water Flush) 30 ml OG Q4 PENDING SALE TO [facility] Stop: 01/04/21 12:14 Last Admin: 12/07/20 12:54 Dose: 30 ml Documented by:
[2020-12-07] MEDS ORDERED: PROPOFOL BOLUS FROM BAG IV PRN (15:44)
[2020-12-07] MEDS: cefTRIAXone SODIUM 2,000 MG in DEXTROSE 5% 50 ML IV SCH (16:11)
[2020-12-07 16:24] LABS: BUN Creatinine Ratio 29.5 (10-20); Creatinine Clr Calc Pharmacy 17.9 ml/min; Est GFR (African American) 16.8 ml/min; Est GFR (Non-African American) 14.5 ml/min; Potassium 4.7 mmol/L (3.5-5.1)
[2020-12-07] MEDS: METOCLOPRAMIDE HCL 10 MG/10 ML UDC NG SCH (18:33)
[2020-12-07] MEDS ORDERED: INSULIN GLARGINE SOLOSTAR 100 UNITS/ML 3 ML PEN SQ SCH (20:00)
[2020-12-08] MEDS: INSULIN ASPART 100 UNITS/ML 3 ML PEN SC SCH ×5 (00:09→15:24)
[2020-12-08] MEDS: fentaNYL DRIP 1,250 MCG/250 ML BAG IV SCH ×5 (00:10→16:12)
[2020-12-08] MEDS: METOCLOPRAMIDE HCL 10 MG/10 ML UDC NG SCH ×4 (00:10→17:08)
[2020-12-08] MEDS: TUBE FEEDING WATER FLUSH OG SCH ×5 (00:11→15:25)
[2020-12-08 03:33] LABS: iSTAT Art Bld Gas pCO2 Correct 50 mmHg (35-46); iSTAT Art Bld Gas pH Corrected 7.328 (7.35-7.45); iSTAT Arterial Blood Gas HCO3 26 meg/L (19-24); iSTAT Arterial Blood Gas pCO2 48 mmHg (35-46); iSTAT Arterial Blood Gas pH 7.34 (7.35-7.45); iSTAT Arterial Blood Gas pO2 57 mmHg (80-95); iSTAT Arterial Blood Gas pO2 C 61; iSTAT Carbon Dioxide 27 mmol/L (24-31); iSTAT FiO2 35 %; iSTAT Hematocrit 31 % (37-47); iSTAT Hemoglobin 10.5 g/dl (12.0-16.0); iSTAT Potassium 4.9 mmol/L (3.3-5.0); iSTAT Site R Radial; iSTAT Sodium 138 mmol/L (135-144)
[2020-12-08] MEDS: propofoL 1,000 MG/100 ML VIAL IV SCH ×3 (04:03→17:08)
[2020-12-08] MEDS: HEPARIN SOD 5,000 UNIT/0.5 ML VIAL SQ SCH ×2 (05:27→13:21)
[2020-12-08] MEDS: NOVASOURCE RENAL 2.0 CAL 1000ML BAG OG SCH (05:32)
[2020-12-08 06:01] LABS: BUN Creatinine Ratio 34.9 (10-20); Calcium 6.3 mg/dl (8.5-10.1); Creatinine Clr Calc Pharmacy 21.5 ml/min; Est GFR (African American) 20.9 ml/min; Magnesium 2.2 mg/dl (1.8-2.4); Phosphorus 3.5 mg/dl (2.5-4.9); Potassium 4.4 mmol/L (3.5-5.1)
[2020-12-08 06:44] LABS: Hematocrit (blood only) 30.6 % (37-47); Hemoglobin 10.1 g/dL (12.0-16.0); Mean Corpuscular Hemoglobin 27.2 pg (25-34); Mean Corpuscular Volume 82.3 fL (80-100); Mean Platelet Volume 9.8 fL (7.4-10.4); Platelet Count 191 K/uL (130-400); RDW Coefficient of Variation 13.4 % (11.5-14.5); Red Blood Count 3.72 M/uL (4.2-5.4); White Blood Count 14.67 K/uL (4.8-10.8)
[2020-12-08 06:46] LABS: Basophils # (auto) 0.01 K/uL (0-0.2); Basophils % (auto) 0.1 %; Immature Granulocytes # (auto) 0.16 K/uL (0.00-0.02); Immature Granulocytes % (auto) 1.1 %; Lymphocytes # (auto) 0.94 K/uL (1.2-3.4); Lymphocytes % (auto) 6.4 %; Monocytes % (auto) 2.7 %; Neutrophils # (auto) 13.16 K/uL (1.4-6.5); Neutrophils % (auto) 89.7 %
--- NOTE | 2020-12-08 07:19 | Critical Care Progress Note ---
Date of Service December 08, 2020 Assessment & Plan (1) Pneumonia due to COVID-19 virus: Reason Critically Ill: 70-year-old female with a history of coronary artery bypass grafting, hypertension, obesity, diabetes mellitus type 2 and hyperlipidemia who presented to the hospital due to lethargy and shortness of breath. PLAN: Neuro: Sedation analgesia neuromuscular blockade -Finished 48 hours of cis atracurium om 12/06 -Continue proning today: Ventilator settings have worsened from initial improvement after dialysis Resp: Acute hypoxic respiratory failure COVID-19 pneumonia -High PEEP low FiO2: Currently 80% FiO2 20 PEEP -Did not get remdesivir secondary to renal function, did get Tocilizumab, convalescent plasma not indicated given concern for volume overload -ARDSnet DEXA dosing -Intubation day #4 Acute respiratory distress syndrome -PF ratio 126 from AM gas and settings CVS: Paroxysmal atrial fibrillation -Currently normal sinus rhythm occurred after dialysis suspect secondary to physiologic stress Fluids/Renal: Hyponatremia: Resolved Hyperkalemia: Resolved Acute kidney injury: Received temporary dialysis -temporary dialysis catheter placed 12/07 ID: Leukocytosis: Afebrile E. coli urinary tract infection -Ceftriaxone x7 days GI/Nutrition: Trickle feeds -Bowel regimen Heme: Leukocytosis DVT prophylaxis: Heparin 3 times daily Endocrine: ICU hyperglycemia protocol -NovoLog coverage Vascular access: Right IJ CVC, 3 peripherals, Temp HD cath 12/07 Code Status: Full code Disposition: Family requesting transfer to [facility], [place] has reportedly accepted awaiting insurance/financial obligation paperwork prior to transfer as I understand this has been designated as a lateral transfer. Therefore transfer unlikely to occur. Patient's daughter: Petra: phone number is [phone]. Her son's phone number Eduard is [phone]. Petra discussed with mother and mother wanted all life sustaining efforts, will remain full code. (2) Hypoxia: (3) CAD (coronary artery disease): (4) Encephalopathy: (5) Acute kidney injury: Admission and Anticipated Discharge Date Admission Date: November 30, 2020 Supervising Physician Co-Signing Physician Notes Patient was discussed in multidisciplinary rounds I have personally spent 45 minutes of critical care time in the direct management of this patient. This is a life/limb threatening event. This inc ludes time spent evaluating patient, direct bedside care, chart review, placing orders, interpretation of diagnostic studies, discussion with consultants, patient, and/or family members regarding treatment decisions, as well as other required patient management activities. This time is exclusive of all separately billable procedures, and teaching time and separate from and in addition to any other critical care service time. Subjective No overnight events Review of Systems Review of Systems: Unobtainable due to endotracheal tube Physical Exam Physical Exam: General: GCS: 3T Skin: Warm, dry, Head: Atraumatic Ears, nose, mouth and throat: airway obscured by endotracheal tube Cardiovascular: Normal peripheral perfusion Respiratory: Ventilator settings reviewed Gastrointestinal: Non distended Musculoskeletal: No deformity Results & Data Results & Data ([facility]) Vital Signs (Past 12 Hours) Vital Signs Temp Pulse Resp BP Pulse Ox 12/08/20 06:00 37.6 C H 83 86 L 12/08/20 05:45 37.7 C H 83 128/50 L 88 L 12/08/20 04:31 38.1 C H 80 126/51 L 89 L 12/08/20 04:01 38.0 C H 80 137/50 L 89 L 12/08/20 03:30 38.0 C H 83 144/52 H 89 L 12/08/20 03:12 83 23 89 L 12/08/20 03:00 37.9 C H 81 130/50 L 90 12/08/20 02:15 37.8 C H 78 135/48 L 89 L 12/08/20 01:45 37.7 C H 77 138/51 L 89 L 12/08/20 01:15 37.6 C H 78 134/58 L 91 12/08/20 01:00 37.6 C H 77 131/50 L 91 12/08/20 00:30 37.5 C 75 132/49 L 92 12/08/20 00:15 37.4 C 76 125/57 L 92 12/07/20 23:45 37.4 C 73 117/52 L 92 12/07/20 23:27 74 12/07/20 23:15 37.2 C 75 114/52 L 92 12/07/20 23:00 37.2 C 73 128/54 L 93 12/07/20 22:30 37.1 C 73 121/51 L 94 12/07/20 22:29 72 23 94 12/07/20 22:00 37.1 C 71 106/49 L 94 12/07/20 21:45 37.0 C 71 110/49 L 94 12/07/20 21:15 37.0 C 74 121/51 L 94 12/07/20 20:45 36.9 C 72 119/55 L 93 12/07/20 20:15 36.7 C 69 122/50 L 92 12/07/20 19:45 36.7 C 72 134/93 91 12/07/20 19:15 36.6 C 69 133/56 L 93 Laboratory Results 12/08/20 12/08/20 12/08/20 Range/Units 04:53 04:53 04:15 WBC 14.67 H (4.8-10.8) K/uL RBC 3.72 L (4.2-5.4) M/uL Hgb 10.1 L D (12.0-16.0) g/dL POC Hgb (12.0-16.0) g/dl Hct 30.6 L (37-47) % POC Hct (37-47) % MCV 82.3 (80-100) fL MCH 27.2 (25-34) pg MCHC 33.0 (32-36) g/dL RDW Std Deviation 41.0 (36.4-46.3) fL RDW Coeff of Frank 13.4 (11.5-14.5) % Plt Count 191 D (130-400) K/uL MPV 9.8 (7.4-10.4) fL Immature Gran % (Auto) 1.1 % Neut % (Auto) 89.7 % Lymph % (Auto) 6.4 % Nicollet % (Auto) 2.7 % Eos % (Auto) 0.0 % Baso % (Auto) 0.1 % Neut # (Auto) 13.16 H (1.4-6.5) K/uL Lymph # (Auto) 0.94 L (1.2-3.4) K/uL Nicollet # (Auto) 0.40 (0.11-0.59) K/uL Eos # (Auto) 0.00 (0-0.5) K/uL Baso # (Auto) 0.01 (0-0.2) K/uL Immature Gran # (Auto) 0.16 H (0.00-0.02) K/uL Sample Site POC pH (7.35-7.45) POC pCO2 (35-46) mmHg POC pO2 (80-95) mmHg POC HCO3 (19-24) fan/L POC Total CO2 (24-31) mmol/L POC Base Excess (-9-1.8) fan/L ABG pH (Temp Correct) (7.35-7.45) ABG pCO2 (Temp Corrct (35-46) mmHg POC ABG pO2 at Pt Temp POC ABG O2 Sat (90-95) % Micah Test O2 Delivery Device POC O2 Rate POC FiO2 % Tidal Volume PEEP POC Sodium (135-144) mmol/L Sodium 141 (136-145) mmol/L POC Potassium (3.3-5.0) mmol/L Potassium 4.4 (3.5-5.1) mmol/L Chloride 112 H (98-107) mmol/L Carbon Dioxide 28 (21-32) mmol/L Anion Gap 1.0 L (3-11) BUN 90 H (7-18) mg/dl Creatinine 2.58 H D (0.6-1.2) mg/dl Est Cr Clr Drug Dosing 21.5 ml/min Est GFR ( Amer) 20.9 ml/min Est GFR (Non-Af Amer) 18.0 ml/min BUN/Creatinine Ratio 34.9 H (10-20) Glucose 121 H (70-99) mg/dl POC Glucose 132 H (70-99) mg/dl Calcium 6.3 L D (8.5-10.1) mg/dl Phosphorus 3.5 D (2.5-4.9) mg/dl Magnesium 2.2 (1.8-2.4) mg/dl Hep Bs Antigen (Neg) Hep Bs Antibody Hep Bs Antibody, Quant (>or=10mIU/mL Immune) mIU/mL Hep B Core IgM Ab 12/08/20 12/08/20 12/07/20 Range/Units 03:20 00:05 19:32 WBC (4.8-10.8) K/uL RBC (4.2-5.4) M/uL Hgb (12.0-16.0) g/dL POC Hgb 10.5 L (12.0-16.0) g/dl Hct (37-47) % POC Hct 31 L (37-47) % MCV (80-100) fL MCH (25-34) pg MCHC (32-36) g/dL RDW Std Deviation (36.4-46.3) fL RDW Coeff of Frank (11.5-14.5) % Plt Count (130-400) K/uL MPV (7.4-10.4) fL Immature Gran % (Auto) % Neut % (Auto) % Lymph % (Auto) % Nicollet % (Auto) % Eos % (Auto) % Baso % (Auto) % Neut # (Auto) (1.4-6.5) K/uL Lymph # (Auto) (1.2-3.4) K/uL Nicollet # (Auto) (0.11-0.59) K/uL Eos # (Auto) (0-0.5) K/uL Baso # (Auto) (0-0.2) K/uL Immature Gran # (Auto) (0.00-0.02) K/uL Sample Site R Radial POC pH 7.34 L (7.35-7.45) POC pCO2 48 H (35-46) mmHg POC pO2 57 L (80-95) mmHg POC HCO3 26 H (19-24) fan/L POC Total CO2 27 (24-31) mmol/L POC Base Excess 0.0 (-9-1.8) fan/L ABG pH (Temp Correct) 7.328 L (7.35-7.45) ABG pCO2 (Temp Corrct 50 H (35-46) mmHg POC ABG pO2 at Pt Temp 61 POC ABG O2 Sat 87.0 L (90-95) % Micah Test NA O2 Delivery Device Ventilator POC O2 Rate 22 POC FiO2 35 % Tidal Volume 350 PEEP 12 POC Sodium 138 (135-144) mmol/L Sodium (136-145) mmol/L POC Potassium 4.9 (3.3-5.0) mmol/L Potassium (3.5-5.1) mmol/L Chloride (98-107) mmol/L Carbon Dioxide (21-32) mmol/L Anion Gap (3-11) BUN (7-18) mg/dl Creatinine (0.6-1.2) mg/dl Est Cr Clr Drug Dosing ml/min Est GFR ( Amer) ml/min Est GFR (Non-Af Amer) ml/min BUN/Creatinine Ratio (10-20) Glucose (70-99) mg/dl POC Glucose 141 H 137 H (70-99) mg/dl Calcium (8.5-10.1) mg/dl Phosphorus (2.5-4.9) mg/dl Magnesium (1.8-2.4) mg/dl Hep Bs Antigen (Neg) Hep Bs Antibody Hep Bs Antibody, Quant (>or=10mIU/mL Immune) mIU/mL Hep B Core IgM Ab 12/07/20 12/07/20 12/07/20 Range/Units 15:59 15:52 11:39 WBC (4.8-10.8) K/uL RBC (4.2-5.4) M/uL Hgb (12.0-16.0) g/dL POC Hgb (12.0-16.0) g/dl Hct (37-47) % POC Hct (37-47) % MCV (80-100) fL MCH (25-34) pg MCHC (32-36) g/dL RDW Std Deviation (36.4-46.3) fL RDW Coeff of Frank (11.5-14.5) % Plt Count (130-400) K/uL MPV (7.4-10.4) fL Immature Gran % (Auto) % Neut % (Auto) % Lymph % (Auto) % Nicollet % (Auto) % Eos % (Auto) % Baso % (Auto) % Neut # (Auto) (1.4-6.5) K/uL Lymph # (Auto) (1.2-3.4) K/uL Nicollet # (Auto) (0.11-0.59) K/uL Eos # (Auto) (0-0.5) K/uL Baso # (Auto) (0-0.2) K/uL Immature Gran # (Auto) (0.00-0.02) K/uL Sample Site POC pH (7.35-7.45) POC pCO2 (35-46) mmHg POC pO2 (80-95) mmHg POC HCO3 (19-24) fan/L POC Total CO2 (24-31) mmol/L POC Base Excess (-9-1.8) fan/L ABG pH (Temp Correct) (7.35-7.45) ABG pCO2 (Temp Corrct (35-46) mmHg POC ABG pO2 at Pt Temp POC ABG O2 Sat (90-95) % Micah Test O2 Delivery Device POC O2 Rate POC FiO2 % Tidal Volume PEEP POC Sodium (135-144) mmol/L Sodium 138 (136-145) mmol/L POC Potassium (3.3-5.0) mmol/L Potassium 4.7 D (3.5-5.1) mmol/L Chloride 105 (98-107) mmol/L Carbon Dioxide 26 (21-32) mmol/L Anion Gap 7.0 (3-11) BUN 91 H (7-18) mg/dl Creatinine 3.09 H D (0.6-1.2) mg/dl Est Cr Clr Drug Dosing 17.9 ml/min Est GFR ( Amer) 16.8 ml/min Est GFR (Non-Af Amer) 14.5 ml/min BUN/Creatinine Ratio 29.5 H (10-20) Glucose 140 H (70-99) mg/dl POC Glucose 130 H 185 H (70-99) mg/dl Calcium 8.0 L (8.5-10.1) mg/dl Phosphorus (2.5-4.9) mg/dl Magnesium (1.8-2.4) mg/dl Hep Bs Antigen (Neg) Hep Bs Antibody Hep Bs Antibody, Quant (>or=10mIU/mL Immune) mIU/mL Hep B Core IgM Ab 12/07/20 12/07/20 12/07/20 Range/Units 09:25 09:25 07:03 WBC (4.8-10.8) K/uL RBC (4.2-5.4) M/uL Hgb (12.0-16.0) g/dL POC Hgb (12.0-16.0) g/dl Hct (37-47) % POC Hct (37-47) % MCV (80-100) fL MCH (25-34) pg MCHC (32-36) g/dL RDW Std Deviation (36.4-46.3) fL RDW Coeff of Frank (11.5-14.5) % Plt Count (130-400) K/uL MPV (7.4-10.4) fL Immature Gran % (Auto) % Neut % (Auto) % Lymph % (Auto) % Nicollet % (Auto) % Eos % (Auto) % Baso % (Auto) % Neut # (Auto) (1.4-6.5) K/uL Lymph # (Auto) (1.2-3.4) K/uL Nicollet # (Auto) (0.11-0.59) K/uL Eos # (Auto) (0-0.5) K/uL Baso # (Auto) (0-0.2) K/uL Immature Gran # (Auto) (0.00-0.02) K/uL Sample Site POC pH (7.35-7.45) POC pCO2 (35-46) mmHg POC pO2 (80-95) mmHg POC HCO3 (19-24) fan/L POC Total CO2 (24-31) mmol/L POC Base Excess (-9-1.8) fan/L ABG pH (Temp Correct) (7.35-7.45) ABG pCO2 (Temp Corrct (35-46) mmHg POC ABG pO2 at Pt Temp POC ABG O2 Sat (90-95) % Imcah Test O2 Delivery Device POC O2 Rate POC FiO2 % Tidal Volume PEEP POC Sodium (135-144) mmol/L Sodium (136-145) mmol/L POC Potassium (3.3-5.0) mmol/L Potassium (3.5-5.1) mmol/L Chloride (98-107) mmol/L Carbon Dioxide (21-32) mmol/L Anion Gap (3-11) BUN (7-18) mg/dl Creatinine (0.6-1.2) mg/dl Est Cr Clr Drug Dosing ml/min Est GFR ( Amer) ml/min Est GFR (Non-Af Amer) ml/min BUN/Creatinine Ratio (10-20) Glucose (70-99) mg/dl POC Glucose 235 H (70-99) mg/dl Calcium (8.5-10.1) mg/dl Phosphorus (2.5-4.9) mg/dl Magnesium (1.8-2.4) mg/dl Hep Bs Antigen Neg (Neg) Hep Bs Antibody Non-Immune Hep Bs Antibody, Quant < 3.10 L (>or=10mIU/mL Immune) mIU/mL Hep B Core IgM Ab Pending Coding Level of Care Code Critical Care 1st 30-74 mins Diagnoses Pneumonia due to COVID-19 virus U07.1; J12.82 Hypoxia R09.02 CAD (coronary artery disease) I25.10 Encephalopathy G93.40 Acute kidney injury N17.9
[2020-12-08] MEDS ORDERED: HEPARIN SOD (PORCINE) 1000 UNIT/ML IV ONE (08:07)
[2020-12-08] MEDS ORDERED: SODIUM CHLORIDE 0.9% 1000ML 1,000 ML IV PRN (08:07)
[2020-12-08] MEDS: dexAMETHasone 6 MG in SYRINGE 0 ML IV SCH (08:11)
[2020-12-08] MEDS: ROSUVASTATIN CALCIUM 5 MG TAB PO SCH (08:12)
[2020-12-08] MEDS: SENNOSIDES 8.8 MG/5 ML UDC PO SCH (08:12)
[2020-12-08] MEDS: PANTOprazole 40 MG in SYRINGE 0 ML IV SCH (08:12)
[2020-12-08] MEDS: amLODIPine BESYLATE 5 MG TAB PO SCH (08:13)
[2020-12-08] MEDS: ASPIRIN 81 MG CHEW PO SCH (08:13)
[2020-12-08] MEDS: INSULIN GLARGINE SOLOSTAR 100 UNITS/ML 3 ML PEN SQ SCH (08:34)
[2020-12-08] MEDS ORDERED: PROSOURCE NO CARB 30 ML/PKT OG SCH (09:00)
[2020-12-08] MEDS ORDERED: CALCIUM GLUCONATE 10% 1,000 MG in SODIUM CHLORIDE 0.9% 50 ML IV ONE (09:45)
[2020-12-08] MEDS ORDERED: ARTIFICIAL TEARS OP OINT 3.5 GM TUBE OP PRN (10:04)
--- NOTE | 2020-12-08 10:46 | XRay Report ---
SINGLE VIEW CHEST CLINICAL HISTORY: Respiratory failure. Covid. FINDINGS: An AP, portable, upright chest radiograph is compared to study dated 12/07/2020. The examina tion is degraded by portable technique and patient rotation. An endotracheal tube, an enteric tube, and bilateral internal jugular central venous catheters are unchanged in position. The patient is sta tus post midline sternotomy. The cardiomediastinal silhouette is unremarkable noting atherosclerotic calcification of the thoracic aorta. Emphysematous change is suspected. Bibasilar airspace opacities are similar to previous. No large pleural effusion or pneumothorax is seen. The skeletal structures a re osteopenic. The bony thorax is grossly intact. IMPRESSION: 1. Stable lines and tubes. 2. Bibasilar airspace opacities are unchanged. ACT 112: Negative or not required by law. Electronically signed by: Shubham Lindsey M.D. 12/08/2020 10:44 AM
--- NOTE | 2020-12-08 11:47 | Hospitalist Progress Note ---
Date of Service December 08, 2020 Assessment & Plan (1) Hypoxia: Secondary to COVID-19 infection Has been requiring more FiO2 to maintain saturation (2) Pneumonia due to COVID-19 virus: Present on admission with worsening shortness of breath for about 2 weeks and confusion COVID-19 tested positive with possible contact with someone around with Covid positivity CXR showed cardiomegaly with pulmonary vascular congestion. Interstitial airspace opacities are seen bilaterally. Started on Dexamethasone 6mg IV daily and has been continuing Was not qualified for intravenous Remdesivir due to elevated creatinine Pt was started on heparin drip since unable to get a CTA chest to r/o PE and later on discontinued Initially was on CPAP with 100% oxygen Appreciate pulmonary input and recommendation Later on transferred to ICU on 12/04/2020 and was intubated on the same day Subsequent D-dimer 1150, CRP 1.98 and increased on 12/03/2020, Ferritin 945 and ESR 43 Received Tocilizumab on 12/04/2020 after discussion with ID in [place] by the hospitalist Will continue current management Her condition is critical and a little worse today She has been requiring FiO2 of 0.8 to maintain saturation Remains on mechanical ventilator since 12/04/2020 Setting with High PEEP low FiO2: Currently 50% FiO2 16 PEEP on 12/07/2020 Management as per self propelled dredge operator Sedated with Propofol and Nimbex and later changed to propofol and fentanyl Continue monitor in the ICU Daughter is being updated by the self propelled dredge operator Conditions remains stable but critical Will have broadening after dialysis today Leukocytosis Afebrile and procalcitonin remains unremarkable Urine culture is growing E. coli-which is pansensitive Intravenous ceftriaxone has been started Leukocytosis is improving with intravenous antibiotic Documentation noted in the chart by prior hospitalist: Daughter would like patient to transfer to [facility] because she is not to happy about the care her mom is receiving at [facility] Prior hospitalist Dr. Hong try to transfer the patient under Dr. Rolon in [facility] in the detailed conversation as listed below. Dr Corea said that if patient transfers to [facility] the care will be the same as what she is getting at [facility] Since transfer as per family request and not because we cannot provide care to patient, [facility] would like to get insurance authorization first before they can accept the patient I called to notify daughter that if insurance does not approve the transfer, she might get a hospital bill; and even though insurance approves for the transfer, that she might get a bill for the transport Case management notify and she is working on approval. Once I get the approval that i will call [facility] to give auth number. Case management called and the approval department closed for today, will try again tomorrow Spoke to daughter today and informed about the transfer to [facility] As of right now there is no confirmation that patient will be transferred to [facility] Case management called the insurance ([employer]). [employer] does not require prior authorization for transfer to [facility] since considering a tertiary care [employer] will not guarantee payment for the hospital course. [facility] transfer does not want to accept the patient until payment guarantee If [employer] cannot guarantee, the family will be responsible to pay the bill Spoke to daughter Petra again and provided with updates. Daughter said she is going to contact the insurance company Daughter is awared that we will hold the transfer until [facility] guarantees payment Case management has been in touch with the daughter and the transfer service The self propelled dredge operator is also in in the loop regarding transfer. ADONIS Mostly due to acute illness CT showed no urinary calculi or hydronephrosis. Moderate left and mild right renal atrophy with nonspecific bilateral perinephric stranding. Creatinine worsening to 3.8 and potassium 5.8 If potassium continues to rise patient, she might need dialysis Appreciate nephrology input and recommendation Temporary line for dialysis has been set She is getting dialysis starting today-12/07/2020 She is going through hemodialysis now-creatinine is slightly improved at 2.58 from 3.09 on 12/07/2020 Elevated Lactic acid Mostly due to Hypoxia lactate 2.4 and procalcitonin normal Blood cx no growth Lactate normalized Has been getting intravenous ceftriaxone for UTI Metabolic encephalopathy Mostly related to acute illness/COVID 19 CT head showed no acute intracranial abnormality Currently sedated with propofol and fentanyl CAD Denies any chest Continue aspirin and statin Diabetes Hba1c 10.1 on 12/05/20 Continue insulin sliding with NovoLog and Lantus Pharmacy on board for glycemic management Continue monitor blood sugar Nutritional support NG tube feeding DVT px on subcu heparin CODE status full code as per discussion with pricilla Lambert Disposition Continue monitor in the ICU Prognosis is guarded Discussed with the daughter in detail . Admission and Anticipated Discharge Date Admission Date: November 30, 2020 Subjective 12/07/2020 The patient was seen and examined in ICU She is intubated and sedated and requiring pressor resents to maintain blood pressure She is also having hemodialysis today 12/08/2020 The patient was seen and examined in ICU She remains intubated and sedated Requiring intravenous pressor resents to maintain blood pressure She is having dialysis now Review of Systems Review of Systems: Unobtainable due to endotracheal tube Physical Exam Physical Exam: Lying in bed, sedated on vent with ongoing hemodialysis Constitutional: well developed, well nourished and + ill appearing ENMT: external ear and nose normal, oropharynx normal Neck: trachea midline, no thyromegaly Respiratory: Auscultation: + diminished lung sounds and + crackles (By basilar crackles) Cardiovascular: Rate/Rhythm: regular rate and regular rhythm Heart Sounds: no murmur Extremities: no edema Gastrointestinal (Abdomen): Inspection/Auscultation: normal bowel sounds; abdomen not distended Percussion/Palpation: abdomen soft Neurologic: Remains sedated on vent Lymphatic: no cervical or axillary lymphadenopathy Results & Data Results & Data ([facility]) Vital Signs (Past 12 Hours) Vital Signs Temp Pulse Pulse Resp BP Pulse Ox 12/08/20 10:50 100 H 97/75 L 12/08/20 10:34 97 H 91/72 L 12/08/20 10:13 89 104/66 12/08/20 09:45 37.1 C 85 12/08/20 07:40 23 12/08/20 06:00 37.6 C H 83 86 L 12/08/20 05:45 37.7 C H 83 128/50 L 88 L 12/08/20 04:31 38.1 C H 80 126/51 L 89 L 12/08/20 04:01 38.0 C H 80 137/50 L 89 L 12/08/20 03:30 38.0 C H 83 144/52 H 89 L 12/08/20 03:12 83 23 89 L 12/08/20 03:00 37.9 C H 81 130/50 L 90 12/08/20 02:15 37.8 C H 78 135/48 L 89 L 12/08/20 01:45 37.7 C H 77 138/51 L 89 L 12/08/20 01:15 37.6 C H 78 134/58 L 91 12/08/20 01:00 37.6 C H 77 131/50 L 91 12/08/20 00:30 37.5 C 75 132/49 L 92 12/08/20 00:15 37.4 C 76 125/57 L 92 12/07/20 23:45 37.4 C 73 117/52 L 92 Laboratory Results Short CBC 12/08/20 Range/Units 04:53 WBC 14.67 H (4.8-10.8) K/uL Hgb 10.1 L D (12.0-16.0) g/dL Hct 30.6 L (37-47) % Plt Count 191 D (130-400) K/uL BMP 12/07/20 12/08/20 15:52 04:53 Sodium 138 141 Potassium 4.7 D 4.4 Chloride 105 112 H Carbon Dioxide 26 28 BUN 91 H 90 H Creatinine 3.09 H D 2.58 H D Glucose 140 H 121 H Calcium 8.0 L 6.3 L D Medications Administered Current Inpatient Medications Amlodipine Besylate (Amlodipine Besylate 5 Mg Tab) 5 mg PO QAM [facility] Stop: 12/31/20 08:59 Last Admin: 12/08/20 08:13 Dose: 5 mg Documented by: Aspirin (Aspirin 81 Mg Chew) 81 mg PO QAM [facility] Stop: 01/06/21 08:59 Last Admin: 12/08/20 08:13 Dose: 81 mg Documented by: Dextrose (Dextrose 50% 50 Ml Syringe) 25 - 50 ml IV UD PRN; Protocol PRN Reason: Hypoglycemia Protocol Stop: 12/30/20 23:38 Last Admin: 12/04/20 20:05 Dose: 25 ml Documented by: Enteral Nutritional Formula (Novasource Renal 2.0 Connor 1000ml Bag) 1,000 ml OG UD SVEN; Protocol Stop: 01/04/21 12:14 Last Admin: 12/08/20 05:32 Dose: 1,000 ml Documented by: Fentanyl Citrate (Fentanyl Bolus From Bag) 50 mcg IV Q60M PRN PRN Reason: Pain or Agitation Stop: 12/18/20 08:44 Glucagon (Glucagon For Inj 1 Mg Vial) 1 mg SQ UD PRN; Protocol PRN Reason: Hypoglycemia Protocol Stop: 12/30/20 23:38 Glucose (Glucose 10 Tabs/Tube) 4 - 8 tabs PO UD PRN; Protocol PRN Reason: Hypoglycemia Protocol Stop: 12/30/20 23:38 Glucose (Glucose 40% Gel 15 Gm Tube) 15 - 30 gm PO UD PRN; Protocol PRN Reason: Hypoglycemia Protocol Stop: 12/30/20 23:38 Heparin Sodium (Porcine) (Heparin Sod 5,000 Unit/0.5 Ml Vial) 5,000 units SQ Q8 SVEN Stop: 12/31/20 17:29 Last Admin: 12/08/20 05:27 Dose: 5,000 units Documented by: Promethazine HCl 12.5 mg/ (Sodium Chloride) 50.5 mls @ 202 mls/hr IV Q6H PRN PRN Reason: Nausea And Vomiting Stop: 12/30/20 23:38 Fentanyl Citrate (Fentanyl Drip) 1,250 mcg in 250 mls @ 35 mls/hr IV .Q7H9M SVEN; Protocol Stop: 12/18/20 08:44 Last Admin: 12/08/20 07:09 Dose: 175 mcg/hr, 35 mls/hr Documented by: Dexamethasone 6 mg/ Syringe 1.5 mls @ 1 mls/min IV DAILY SVEN Stop: 12/09/20 23:59 Last Admin: 12/08/20 08:11 Dose: 1 mls/min Documented by: Pantoprazole Sodium 40 mg/ (Syringe) 10 mls @ 5 mls/min IV QAM [facility] Stop: 01/05/21 08:59 Last Admin: 12/08/20 08:12 Dose: 5 mls/min Documented by: Norepinephrine Bitartrate (Levophed/D5w) 8 mg in 508 mls @ 17.393 mls/hr IV .Q24H SVEN; Protocol Stop: 01/06/21 09:44 Last Titration: 12/08/20 11:23 Dose: 0.05 mcg/kg/min, 17.4 mls/hr Documented by: Ceftriaxone Sodium 2,000 mg/ (Dextrose) 70 mls @ 140 mls/hr IV DAILY@1400 SVEN; Protocol Stop: 12/14/20 13:59 Last Infusion: 12/07/20 16:45 Dose: Infused Documented by: Propofol (Diprivan) 1,000 mg in 100 mls @ 10.956 mls/hr IV .Q9H8M SVEN; Protocol Stop: 12/10/20 15:44 Last Admin: 12/08/20 11:14 Dose: 20 mcg/kg/min, 11 mls/hr Documented by: Sodium Chloride (Nss 1000ml) 1,000 mls @ 0 mls/hr IV .Q0M PRN PRN Reason: For Hemodialysis Use ONLY Stop: 12/08/20 14:06 Insulin Aspart (Insulin Aspart 100 Units/Ml 3 Ml Pen) 0 units SC Q4 SVNE; Protocol Stop: 01/06/21 15:59 Last Admin: 12/08/20 11:20 Dose: 5 units Documented by: Insulin Glargine (Insulin Glargine Solostar 100 Units/Ml 3 Ml Pen) 30 units SQ QAM SVEN; Protocol Stop: 01/04/21 08:59 Last Admin: 12/08/20 08:34 Dose: 30 units Documented by: Insulin Glargine (Insulin Glargine Solostar 100 Units/Ml 3 Ml Pen) 0 units SQ DAILY@2000 SVEN; Protocol Stop: 01/06/21 19:59 Last Admin: 12/07/20 19:35 Dose: Not Given Documented by: Levalbuterol HCl (Levalbuterol Hcl 1.25 Mg/3 Ml Neb) 1.25 mg NEB NOW PRN PRN Reason: Shortness Of Breath Or Wheezing Stop: 01/03/21 13:46 Metoclopramide HCl (Metoclopramide Hcl 10 Mg/10 Ml Udc) 10 mg NG Q6 SVEN Stop: 12/09/20 12:01 Last Admin: 12/08/20 11:23 Dose: 10 mg Documented by: Miscellaneous (Carbohydrates For Hypoglycemia ) 15 - 30 gm PO UD PRN PRN Reason: Hypoglycemia Protocol Stop: 12/30/20 23:38 Miscellaneous Information (Pharmacy Glycemic Mgmt Consult) 1 ea N/A UD PRN PRN Reason: Consult Stop: 12/31/20 16:59 Multi-Ingredient Cream (Artificial Tears Op Oint 3.5 Gm Tube) 1 appln OP Q4H PRN PRN Reason: DRY EYES Stop: 01/07/21 10:03 Last Admin: 12/08/20 11:24 Dose: 1 appln Documented by: Nutritional Formula (Prosource No Carb 30 Ml/Pkt) 30 ml OG DAILY SVEN Stop: 01/07/21 08:59 Last Admin: 12/08/20 08:12 Dose: 30 ml Documented by: Propofol (Propofol Bolus From Bag) 20 mg IV Q5M PRN PRN Reason: Sedation Stop: 12/10/20 15:43 Rosuvastatin Calcium (Rosuvastatin Calcium 5 Mg Tab) 5 mg PO DAILY [facility] Stop: 12/31/20 08:59 Last Admin: 12/08/20 08:12 Dose: 5 mg Documented by: Sennosides (Sennosides 8.8 Mg/5 Ml Udc) 8.8 mg PO QAM SVEN Stop: 01/06/21 08:59 Last Admin: 12/08/20 08:12 Dose: 8.8 mg Documented by: Sterile Water (Tube Feeding Water Flush) 30 ml OG Q4 [facility] Stop: 01/04/21 12:14 Last Admin: 12/08/20 11:24 Dose: 30 ml Documented by:
--- NOTE | 2020-12-08 12:37 | Pharmacy Report ---
Pharmacy Glycemic Short Note 2 - Date of Service December 08, 2020 - Glycemic Short BSG Results (Last 24 hours): 12/07/20 12/07/20 12/07/20 15:52 15:59 19:32 Glucose 140 H POC Glucose 130 H 137 H 12/08/20 12/08/20 12/08/20 00:05 04:15 04:53 Glucose 121 H POC Glucose 141 H 132 H 12/08/20 12/08/20 08:21 11:18 Glucose POC Glucose 112 H 151 H OUTPATIENT ANTIDIABETIC REGIMEN: * Glimepiride 1 mg po daily * A1c 8.8% 09/2020 ASSESSMENT: 12/08 * BSG's significantly and abruptly improved with initiation of HD yesterday. HD currently ongoing today as well. * No changes to glycemic regimen today 12/07 * BSG's continued to increase yesterday despite interventions - dual etiology of hyperglycemia being Novasource trickle feeds and also worsening kidney function causing insulin resistance. However, HD to be initiated today which can abruptly increase insulin sensitivity. * Novolog parameters significantly tightened last night, which is appropriate for now based on hyperglycemia, but I will loosen significantly post-HD. This will still be an aggressive regimen at weight-based severe stress estimate, which is appropriate based on severity of illness and steroid use * Will not provide a higher dose of Lantus today as the effects will persist post-HD and would like to avoid an abrupt decrease in BSG's post-HD. Also - recent history of hypoglycemia while on the same dose of dexamethasone as current when patient received Lantus 40 units (total day prior). Will instead scale for this evening based on BSG * Although Novasource is contributing to hyperglycemia, a change in CHO ratio is not indicated at that time as the tubefeed rates are so low (7 g CHO q4h) that significantly tightening CHO ratio will have a limited effect on insulin delivered now, but may precipitate hypoglycemia if tubefeed rates are increased later 12/06 * BSG's very slowly but steadily increased yesterday, which coincided with initiation of Novasource trickle feeds. Initially did not cover CHO as these were only trickle feeds, but based on this change in BSG will now adjust Novolog order to cover trickle feeds as well * In addition, will tighten Novolog correction factor * Will also increase Lantus dose PLAN FOR INPATIENT GLYCEMIC CONTROL: * Lantus 30 units SC x1 this AM with additional 10 units HS if BSG >200 mg/dL * Novolog q4h * Goal range: 110-140 mg/dL * Correction factor: 20 mg/dL/unit * Carb ratio: 6 g CHO/unit (to cover Novasource) PLAN FOR DISCHARGE: * To be determined
[2020-12-08] MEDS: HEPARIN SOD (PORCINE) 1000 UNIT/ML IV SCH (12:40)
[2020-12-08] MEDS: cefTRIAXone SODIUM 2,000 MG in DEXTROSE 5% 50 ML IV SCH (13:21)
[2020-12-08] MEDS: NOREPINEPHRINE/D5W 8 MG/508 ML BAG IV SCH (13:44)
[2020-12-08 15:26] LABS: Hematocrit (blood only) 38.2 % (37-47); Hemoglobin 12.4 g/dL (12.0-16.0); Mean Corpuscular Hemoglobin 27.9 pg (25-34); Mean Corpuscular Hgb Conc 32.5 g/dL (32-36); Mean Platelet Volume 9.9 fL (7.4-10.4); Platelet Count 196 K/uL (130-400); RDW Coefficient of Variation 13.5 % (11.5-14.5); RDW Standard Deviation 43.1 fL (36.4-46.3); Red Blood Count 4.44 M/uL (4.2-5.4)
--- NOTE | 2020-12-08 16:51 | Nephrology Progress Note ---
Date of Service December 08, 2020 Assessment & Plan (1) ADONIS (acute kidney injury): worsening acute kidney injury, now stage 3 and borderline oliguric. Her baseline creatinine in [facility] records is 1.5-1.6 as recently as September 2020. She follows w/ me in CKD clinic (seen 2X in last 3 years though). creat was 3.2 on presentation November 30. Trending downward to 2.3 12/04 then back to 3.2 12/05 p ost intubation, up to 4.4 today. Urine sediment bland. Renal imaging remarkable for mild left greater than right renal atrophy; no infarcts or obstruction seen. Nonspecific bilateral perinephric stranding noted. She has acceptable chemistries but remains volume overloaded in the setting of COVID-19. Not acidemic. -Daily basic metabolic panel -for urgent dialysis today to manage volume status/oxygenation: 3 hr, 1000 mL UF as BP tolerates; normal dialyzer -may need pressor to tolerate HD - critical care aware -plan tentatively to treat w/ HD 3 days in a row (so again tomorrow) then observe but this will depend on clinical status Lasix as needed to optimize respiratory and volume status - none recently Continue strict intake and output (2) Electrolyte and fluid disorder: hyperkalemia, hyponatremia resolved. but volume overloaded Monitor daily bmp/abg (3) Pneumonia due to COVID-19 virus: per primary service Admission and Anticipated Discharge Date Admission Date: November 30, 2020 Subjective seen on rounds this am w/ sats in lower 80s on 100% Fi02; hoping to prone pt but she also needs dialysis; not oliguric; did have low grade F to 38.1 ON Review of Systems Review of Systems: Unobtainable due to endotracheal tube Physical Exam Constitutional: well developed, well nourished and + mechanically ventilated; no acute distress Eyes: EOM intact bilaterally ENMT: Ears: no external ear abnormality Nose: no external nose abnormality Mouth: + dry oral mucous membranes Neck: no nuchal rigidity Respiratory: Auscultation: lungs clear to auscultation bilaterally and + diminished lung sounds; no crackles and no wheezes Cardiovascular: RRR, no murmur, no edema Rate/Rhythm: regular rate and regular rhythm Extremities: no edema Gastrointestinal (Abdomen): Inspection/Auscultation: normal bowel sounds; abdomen not distended and no abdominal edema Percussion/Palpation: abdomen soft; abdomen nontender Musculoskeletal: Extremities: + abnormal strength (paralyzed) Skin: no rashes, warm and dry Neurologic: endocrinology physician sedation when I saw her than other days but not alert enough to follow commands Genitourinary: kim w/ some light yellow urine Results & Data ([facility]) Vital Signs (Past 12 Hours) Vital Signs Temp Pulse Pulse Resp BP BP Pulse Ox 12/08/20 15:37 89 22 95 12/08/20 13:20 37.1 C 94 H 127/74 12/08/20 13:05 106 H 78/59 L 12/08/20 12:50 107 H 77/56 L 12/08/20 12:36 37.1 C 105 H 94/55 L 93 12/08/20 12:35 106 H 94/55 L 12/08/20 12:21 37.1 C 105 H 75/41 L 94 12/08/20 12:20 105 H 75/41 L 12/08/20 12:07 37.1 C 102 H 88/74 L 92 12/08/20 12:05 103 H 88/74 L 12/08/20 12:00 37.1 C 102 H 101/56 L 91 12/08/20 11:50 100 H 101/56 L 12/08/20 11:36 37.1 C 97 H 115/94 89 L 12/08/20 11:35 99 H 115/94 12/08/20 11:21 37.2 C 92 H 102/86 92 12/08/20 11:20 94 H 102/86 12/08/20 11:18 37.1 C 98 H 79/63 L 90 12/08/20 11:07 37.1 C 99 H 81/56 L 90 12/08/20 11:05 101 H 97/75 L 12/08/20 11:00 91 H 22 98 12/08/20 10:51 37.1 C 99 H 97/75 L 90 12/08/20 10:50 100 H 97/75 L 12/08/20 10:36 37.1 C 95 H 91/72 L 92 12/08/20 10:35 99 H 115/94 12/08/20 10:34 97 H 91/72 L 12/08/20 10:21 36.9 C 87 107/62 93 12/08/20 10:13 37.0 C 90 104/66 92 12/08/20 09:45 37.1 C 88 85 120/62 90 12/08/20 08:45 37.0 C 95 H 142/96 H 83 L 12/08/20 07:45 37.2 C 81 122/50 L 90 12/08/20 07:40 23 12/08/20 06:00 37.6 C H 83 86 L 12/08/20 05:45 37.7 C H 83 128/50 L 88 L Laboratory Results 12/08/20 14:57 12/08/20 04:53
--- NOTE | 2020-12-08 18:04 | Discharge Summary ---
Date of Service December 08, 2020 Admission HPI Per Admitting Provider Pt is 70 y/o F with PMH DM II (A1c: 8.8 on 09/2020), HTN, CAD s/p CABG x 3 presented to ER with complaint of shortness of breath. Patient is currently confused and gives history however unsure how reliable from patient. Chart review and outpatient records reviewed. Patient reports [place] from the beach [place] of weeks ago. She is unable to tell me the beach or the state but reports she did travel by airplane. She reports she has had a cough for couple weeks and has been having increasing shortness of breath, worse with exertion. She feels weak and lightheaded. Also complains of lower anterior chest disc omfort. Patient does not think she has had lower extremity edema. She reports that she has been having trouble remembering recently. She states doesn't remember when she last took her medication. Patient denies any known ill contacts, however ER nurse reports somebody called in to state that patient was around somebody who has now tested positive for COVID-19. She reports has not had COVID-19 vaccination. She denies fever, chills, nausea, vomiting, diarrhea, abdominal pain, syncope, rhinorrhea, sore throat, abdominal pain, paresthesias, rashes, urinary symptoms. In ER in triage oxygen saturations were noted to be 84%, patient was placed on oxygen with O2 sats up to 94% on 3L via nasal cannula. COVID-19 PCR is positive. initial troponin negative. CXR: Interstitial airspace opacities are seen bilaterally. Lactate within normal limits. BUN: 85, Cr: 3.1 (baseline Cr: 1.6) Admission Exam Per Admitting Provider Physical Exam: General: no distress, resting in bed on 3L oxygen via NC, obese Head: normocephalic, atraumatic Eyes: PERRL, EOM's intact, conjunctiva non-injected, anicteric ENT: normal inspection external ears, nose, mucous membranes dry Neck: supple, trachea midline Lungs: on 3L oxygen, no respiratory distress, +dry cough, course breath sounds throughout CV: RRR, no murmur, 1-2+ pretibial edema Abd: normal BS, soft, non-tender Ext: no cyanosis, no calf tenderness Neuro: Alert, oriented to person, knows in hospital but unsure of name or town, knows 2020 unsure of month or day Skin: warm, dry Principal Diagnosis Acute Respiratory Failure on Mechanical Ventilator,COVID 19 Pneumonia,Acute Renal Failure on HD,UTI Discharge Exam Constitutional well developed, well nourished and + ill appearing ENMT external ear and nose normal, oropharynx normal Neck trachea midline, no thyromegaly Respiratory Auscultation: + diminished lung sounds and + crackles (By basilar crackles) Cardiovascular Rate/Rhythm: regular rate and regular rhythm Heart Sounds: no murmur Extremities: no edema Gastrointestinal (Abdomen) Inspection/Auscultation: normal bowel sounds; abdomen not distended Percussion/Palpation: abdomen soft Lymphatic no cervical or axillary lymphadenopathy Discharge Data Allergies Allergy/AdvReac Type Severity Reaction Status Date / Time latex Allergy Unknown SWELLING Unverified 11/30/20 19:05 Penicillins Allergy Unknown HIGH Unverified 11/30/20 19:05 FEVER, RED BUMPS ON FACE. Consultations 11/30/20 20:35 ED Decision to Admit Stat 12/01/20 10:01 Consult Pulmonology Routine 12/02/20 18:46 Consult Nephrology Routine 12/02/20 19:08 Consult Surveillance Director Routine 12/08/20 17:14 Burn CD for patient Stat Ordered Studies 11/30/20 21:48 CT head/brain wo con Urgent US venous doppler LE BI Routine 11/30/20 22:24 CT abd pelvis wo con Urgent 12/04/20 08:55 US point of care ultrasound Stat 12/07/20 07:11 US point of care ultrasound Routine Hospital Course (1) Hypoxia: Secondary to COVID-19 infection Has been requiring more FiO2 to maintain saturation (2) Pneumonia due to COVID-19 virus: Present on admission with worsening shortness of breath for about 2 weeks and confusion COVID-19 tested positive with possible contact with someone around with Covid positivity CXR showed cardiomegaly with pulmonary vascular congestion. Interstitial airspace opacities are seen bilaterally. Started on Dexamethasone 6mg IV daily and has been continuing Was not qualified for intravenous Remdesivir due to elevated creatinine Pt was started on heparin drip since unable to get a CTA chest to r/o PE and later on discontinued Initially was on CPAP with 100% oxygen Appreciate pulmonary input and recommendation Later on transferred to ICU on 12/04/2020 and was intubated on the same day Subsequent D-dimer 1150, CRP 1.98 and increased on 12/03/2020, Ferritin 945 and ESR 43 Received Tocilizumab on 12/04/2020 after discussion with ID in [place] by the hospitalist Will continue current management Her condition is critical and a little worse today She has been requiring FiO2 of 0.8 to maintain saturation Remains on mechanical ventilator since 12/04/2020 Setting with High PEEP low FiO2: Currently 50% FiO2 16 PEEP on 12/07/2020 Management as per gut carrier Sedated with Propofol and Nimbex and later changed to propofol and fentanyl Continue monitor in the ICU Daughter is being updated by the gut carrier Conditions remains stable but critical Will have broadening after dialysis today Leukocytosis Afebrile and procalcitonin remains unremarkable Urine culture is growing E. coli-which is pansensitive Intravenous ceftriaxone has been started Leukocytosis is improving with intravenous antibiotic Documentation noted in the chart by prior hospitalist: Daughter would like patient to transfer to [place] because she is not to happy about the care her mom is receiving at [facility] Prior hospitalist Dr. Hong try to transfer the patient under Dr. Rolon in [facility] in the detailed conversation as listed below. Dr Corea said that if patient transfers to [place] the care will be the same as what she is getting at [facility] Since transfer as per family request and not because we cannot provide care to patient, [place] would like to get insurance authorization first before they can accept the patient I called to notify daughter that if insurance does not approve the transfer, she might get a hospital bill; and even though insurance approves for the transfer, that she might get a bill for the transport Case management notify and she is working on approval. Once I get the approval that i will call [place] to give auth number. Case management called and the approval department closed for today, will try again tomorrow Spoke to daughter today and informed about the transfer to [facility] As of right now there is no confirmation that patient will be transferred to [place] Case management called the insurance ([employer]). [employer] does not require prior authorization for transfer to [place] since considering a tertiary care [employer] will not guarantee payment for the hospital course. [place] transfer does not want to accept the patient until payment guarantee If [employer] cannot guarantee, the family will be responsible to pay the bill Spoke to daughter Petra again and provided with updates. Daughter said she is going to contact the insurance company Daughter is awared that we will hold the transfer until Lanie guarantees payment Case management has been in touch with the daughter and the transfer service The gut carrier is also in in the loop regarding transfer. ADONIS Mostly due to acute illness CT showed no urinary calculi or hydronephrosis. Moderate left and mild right renal atrophy with nonspecific bilateral perinephric stranding. Creatinine worsening to 3.8 and potassium 5.8 If potassium continues to rise patient, she might need dialysis Appreciate nephrology input and recommendation Temporary line for dialysis has been set She is getting dialysis starting today-12/07/2020 She is going through hemodialysis now-creatinine is slightly improved at 2.58 from 3.09 on 12/07/2020 Elevated Lactic acid Mostly due to Hypoxia lactate 2.4 and procalcitonin normal Blood cx no growth Lactate normalized Has been getting intravenous ceftriaxone for UTI Metabolic encephalopathy Mostly related to acute illness/COVID 19 CT head showed no acute intracranial abnormality Currently sedated with propofol and fentanyl CAD Denies any chest Continue aspirin and statin Diabetes Hba1c 10.1 on 12/05/20 Continue insulin sliding with NovoLog and Lantus Pharmacy on board for glycemic management Continue monitor blood sugar Nutritional support NG tube feeding DVT px on subcu heparin CODE status full code as per discussion with pricilla Lambert Disposition Continue monitor in the ICU Prognosis is guarded Discussed with the daughter in detail Assessment and Plan by Nephrology: (1) ADONIS (acute kidney injury): worsening acute kidney injury, now stage 3 and borderline oliguric. Her baseline creatinine in [facility] records is 1.5-1.6 as recently as September 2020. She follows w/ me in CKD clinic (seen 2X in last 3 years though). creat was 3.2 on presentation November 30. Trending downward to 2.3 12/04 then back to 3.2 12/05 post intubation, up to 4.4 today. Urine sediment bland. Renal imaging remarkable for mild left greater than right renal atrophy; no infarcts or obstruction seen. Nonspecific bilateral perinephric stranding noted. She has acceptable chemistries but remains volume overloaded in the setting of COVID-19. Not acidemic. -Daily basic metabolic panel -for urgent dialysis today to manage volume status/oxygenation: 3 hr, 1000 mL UF as BP tolerates; normal dialyzer -may need pressor to tolerate HD - critical care aware -plan tentatively to treat w/ HD 3 days in a row (so again tomorrow) then observe but this will depend on clinical status Lasix as needed to optimize respiratory and volume status - none recently Continue strict intake and output (2) Electrolyte and fluid disorder: hyperkalemia, hyponatremia resolved. but volume overloaded Monitor daily bmp/abg (3) Pneumonia due to COVID-19 virus: per primary service Admission and Anticipated Discharge Date Admission Date: November 30, 2020 Assessment and plan by Surveillance Director: . Addendum December 08, 2020 17:10 Notified by [facility] [place] of opening in ICU and will proceed with transfer per family request. I was informed by [facility] [place] staff insuance prior authorizations had been obtained. We will fly the patient my lifelion and accepting physician is Dr. Mcallister. I will be updating the patient's daughter. Addendum Signed By:<Electronically signed by Melvin Sandoval DO>12/08/20ddendum Cosigned By:Created: 12/08/20 Date of Service December 08, 2020 Assessment & Plan (1) Pneumonia due to COVID-19 virus: Reason Critically Ill: 70-year-old female with a history of coronary artery bypass grafting, hypertension, obesity, diabetes mellitus type 2 and hyperlipidemia who presented to the hospital due to lethargy and shortness of breath. PLAN: Neuro: Sedation analgesia neuromuscular blockade -Finished 48 hours of cis atracurium om 12/06 -Continue proning today: Ventilator settings have worsened from initial improvement after dialysis Resp: Acute hypoxic respiratory failure COVID-19 pneumonia -High PEEP low FiO2: Currently 80% FiO2 20 PEEP -Did not get remdesivir secondary to renal function, did get Tocilizumab, convalescent plasma not indicated given concern for volume overload -ARDSnet DEXA dosing -Intubation day #4 Acute respiratory distress syndrome -PF ratio 126 from AM gas and settings CVS: Paroxysmal atrial fibrillation -Currently normal sinus rhythm occurred after dialysis suspect secondary to physiologic stress Fluids/Renal: Hyponatremia: Resolved Hyperkalemia: Resolved Acute kidney injury: Received temporary dialysis -temporary dialysis catheter placed 12/07 ID: Leukocytosis: Afebrile E. coli urinary tract infection -Ceftriaxone x7 days GI/Nutrition: Trickle feeds -Bowel regimen Heme: Leukocytosis DVT prophylaxis: Heparin 3 times daily Endocrine: ICU hyperglycemia protocol -NovoLog coverage Vascular access: Right IJ CVC, 3 peripherals, Temp HD cath 12/07 Code Status: Full code Disposition: Family requesting transfer to [facility], [place] has reportedly accepted awaiting insurance/financial obligation paperwork prior to transfer as I understand this has been designated as a lateral transfer. Therefore transfer unlikely to occur. Patient's daughter: Petra: phone number is [phone]. Her son's phone number Eduard is [phone]. Petra discussed with mother and mother wanted all life sustaining efforts, will remain full code. (2) Hypoxia: (3) CAD (coronary artery disease): (4) Encephalopathy: (5) Acute kidney injury: Admission and Anticipated Discharge Date Admission Date: November 30, 2020 Supervising Physician Co-Signing Physician Notes Patient was discussed in multidisciplinary rounds I have personally spent 45 minutes of critical care time in the direct management of this patient. This is a life/limb threatening event. This includes time spent evaluating patient, direct bedside care, chart review, placing orders, interpretation of diagnostic studies, discussion with consultants, patient, and/or family members regarding treatment decisions, as well as other required patient management activities. This time is exclusive of all separately billable procedures, and teaching time and separate from and in addition to any other critical care service time. Total Time Total Time Spent Total Time Spent (In Minutes): 45 minutes Discharge Plan Discharge Items Patient Disposition: Transfer Acute Care Hospital Reason For Visit: RESP FAILURE, COVID Discharge Diagnosis: Acute Respiratory Failure on Mechanical Ventilator,COVID 19 Pneumonia,Acute Renal Failure on HD,UTI Condition on Discharge: Fair Activity: As commented below Activity Comment: Sedated on Vent Non-emergency contact: Primary Care Provider Call non-emergency contact if: you have any medication questions Follow-up/Referrals: Bala Neely MD [Primary Care Provider] - (Please make an appointment within 7 days following discharge from the Facility) Diet: Other - See Diet Comment Diet Comment: NGT-feeding Addtl Attending Provider Instructions: All of the In-Patient Medications were continued on discharge as follows Current Inpatient Medications Amlodipine Besylate (Amlodipine Besylate 5 Mg Tab) 5 mg PO QAM [facility] Stop: 12/31/20 08:59 Last Admin: 12/08/20 08:13 Dose: 5 mg Documented by: Aspirin (Aspirin 81 Mg Chew) 81 mg PO [facility] Stop: 01/06/21 08:59 Last Admin: 12/08/20 08:13 Dose: 81 mg Documented by: Dextrose (Dextrose 50% 50 Ml Syringe) 25 - 50 ml IV UD PRN; Protocol PRN Reason: Hypoglycemia Protocol Stop: 12/30/20 23:38 Last Admin: 12/04/20 20:05 Dose: 25 ml Documented by: Enteral Nutritional Formula (Novasource Renal 2.0 Connor 1000ml Bag) 1,000 ml OG [facility] Protocol Stop: 01/04/21 12:14 Last Admin: 12/08/20 05:32 Dose: 1,000 ml Documented by: Fentanyl Citrate (Fentanyl Bolus From Bag) 50 mcg IV Q60M PRN PRN Reason: Pain or Agitation Stop: 12/18/20 08:44 Glucagon (Glucagon For Inj 1 Mg Vial) 1 mg SQ UD PRN; Protocol PRN Reason: Hypoglycemia Protocol Stop: 12/30/20 23:38 Glucose (Glucose 10 Tabs/Tube) 4 - 8 tabs PO UD PRN; Protocol PRN Reason: Hypoglycemia Protocol Stop: 12/30/20 23:38 Glucose (Glucose 40% Gel 15 Gm Tube) 15 - 30 gm PO UD PRN; Protocol PRN Reason: Hypoglycemia Protocol Stop: 12/30/20 23:38 Heparin Sodium (Porcine) (Heparin Sod 5,000 Unit/0.5 Ml Vial) 5,000 units SQ Q8 [facility] Stop: 12/31/20 17:29 Last Admin: 12/08/20 05:27 Dose: 5,000 units Documented by: Promethazine HCl 12.5 mg/ (Sodium Chloride) 50.5 mls @ 202 mls/hr IV Q6H PRN PRN Reason: Nausea And Vomiting Stop: 12/30/20 23:38 Fentanyl Citrate (Fentanyl Drip) 1,250 mcg in 250 mls @ 35 mls/hr IV .Q7H9M [facility]; Protocol Stop: 12/18/20 08:44 Last Admin: 12/08/20 07:09 Dose: 175 mcg/hr, 35 mls/hr Documented by: Dexamethasone 6 mg/ Syringe 1.5 mls @ 1 mls/min IV DAILY [facility] Stop: 12/09/20 23:59 Last Admin: 12/08/20 08:11 Dose: 1 mls/min Documented by: Pantoprazole Sodium 40 mg/ (Syringe) 10 mls @ 5 mls/min IV QAM [facility] Stop: 01/05/21 08:59 Last Admin: 12/08/20 08:12 Dose: 5 mls/min Documented by: Norepinephrine Bitartrate (Levophed/D5w) 8 mg in 508 mls @ 17.393 mls/hr IV .Q24H [facility]; Protocol Stop: 01/06/21 09:44 Last Titration: 12/08/20 11:23 Dose: 0.05 mcg/kg/min, 17.4 mls/hr Documented by: Ceftriaxone Sodium 2,000 mg/ (Dextrose) 70 mls @ 140 mls/hr IV DAILY@1400 [facility]; Protocol Stop: 12/14/20 13:59 Last Infusion: 12/07/20 16:45 Dose: Infused Documented by: Propofol (Diprivan) 1,000 mg in 100 mls @ 10.956 mls/hr IV .Q9H8M [facility]; Protocol Stop: 12/10/20 15:44 Last Admin: 12/08/20 11:14 Dose: 20 mcg/kg/min, 11 mls/hr Documented by: Sodium Chloride (Nss 1000ml) 1,000 mls @ 0 mls/hr IV .Q0M PRN PRN Reason: For Hemodialysis Use ONLY Stop: 12/08/20 14:06 Insulin Aspart (Insulin Aspart 100 Units/Ml 3 Ml Pen) 0 units SC Q4 [facility]; Protocol Stop: 01/06/21 15:59 Last Admin: 12/08/20 11:20 Dose: 5 units Documented by: Insulin Glargine (Insulin Glargine Solostar 100 Units/Ml 3 Ml Pen) 30 units SQ QAM [facility]; Protocol Stop: 01/04/21 08:59 Last Admin: 12/08/20 08:34 Dose: 30 units Documented by: Insulin Glargine (Insulin Glargine Solostar 100 Units/Ml 3 Ml Pen) 0 units SQ DAILY@2000 [facility]; Protocol Stop: 01/06/21 19:59 Last Admin: 12/07/20 19:35 Dose: Not Given Documented by: Levalbuterol HCl (Levalbuterol Hcl 1.25 Mg/3 Ml Neb) 1.25 mg NEB NOW PRN PRN Reason: Shortness Of Breath Or Wheezing Stop: 01/03/21 13:46 Metoclopramide HCl (Metoclopramide Hcl 10 Mg/10 Ml Udc) 10 mg NG Q6 [facility] Stop: 12/09/20 12:01 Last Admin: 12/08/20 11:23 Dose: 10 mg Documented by: Miscellaneous (Carbohydrates For Hypoglycemia ) 15 - 30 gm PO UD PRN PRN Reason: Hypoglycemia Protocol Stop: 12/30/20 23:38 Miscellaneous Information (Pharmacy Glycemic Mgmt Consult) 1 ea N/A UD PRN PRN Reason: Consult Stop: 12/31/20 16:59 Multi-Ingredient Cream (Artificial Tears Op Oint 3.5 Gm Tube) 1 appln OP Q4H PRN PRN Reason: DRY EYES Stop: 01/07/21 10:03 Last Admin: 12/08/20 11:24 Dose: 1 appln Documented by: Nutritional Formula (Prosource No Carb 30 Ml/Pkt) 30 ml OG DAILY [facility] Stop: 01/07/21 08:59 Last Admin: 12/08/20 08:12 Dose: 30 ml Documented by: Propofol (Propofol Bolus From Bag) 20 mg IV Q5M PRN PRN Reason: Sedation Stop: 12/10/20 15:43 Rosuvastatin Calcium (Rosuvastatin Calcium 5 Mg Tab) 5 mg PO DAILY [facility] Stop: 12/31/20 08:59 Last Admin: 12/08/20 08:12 Dose: 5 mg Documented by: Sennosides (Sennosides 8.8 Mg/5 Ml Udc) 8.8 mg PO QAM [facility] Stop: 01/06/21 08:59 Last Admin: 12/08/20 08:12 Dose: 8.8 mg Documented by: Sterile Water (Tube Feeding Water Flush) 30 ml OG Q4 [facility] Stop: 01/04/21 12:14 Last Admin: 12/08/20 11:24 Dose: 30 ml Documented by: Current Inpatient Medications Amlodipine Besylate (Amlodipine Besylate 5 Mg Tab) 5 mg PO QAM [facility] Stop: 12/31/20 08:59 Last Admin: 12/08/20 08:13 Dose: 5 mg Documented by: Aspirin (Aspirin 81 Mg Chew) 81 mg PO QAM [facility] Stop: 01/06/21 08:59 Last Admin: 12/08/20 08:13 Dose: 81 mg Documented by: Dextrose (Dextrose 50% 50 Ml Syringe) 25 - 50 ml IV UD PRN; Protocol PRN Reason: Hypoglycemia Protocol Stop: 12/30/20 23:38 Last Admin: 12/04/20 20:05 Dose: 25 ml Documented by: Enteral Nutritional Formula (Novasource Renal 2.0 Connor 1000ml Bag) 1,000 ml OG UD [facility]; Protocol Stop: 01/04/21 12:14 Last Admin: 12/08/20 05:32 Dose: 1,000 ml Documented by: Fentanyl Citrate (Fentanyl Bolus From Bag) 50 mcg IV Q60M PRN PRN Reason: Pain or Agitation Stop: 12/18/20 08:44 Glucagon (Glucagon For Inj 1 Mg Vial) 1 mg SQ UD PRN; Protocol PRN Reason: Hypoglycemia Protocol Stop: 12/30/20 23:38 Glucose (Glucose 10 Tabs/Tube) 4 - 8 tabs PO UD PRN; Protocol PRN Reason: Hypoglycemia Protocol Stop: 12/30/20 23:38 Glucose (Glucose 40% Gel 15 Gm Tube) 15 - 30 gm PO UD PRN; Protocol PRN Reason: Hypoglycemia Protocol Stop: 12/30/20 23:38 Heparin Sodium (Porcine) (Heparin Sod 5,000 Unit/0.5 Ml Vial) 5,000 units SQ Q8 [facility] Stop: 12/31/20 17:29 Last Admin: 12/08/20 05:27 Dose: 5,000 units Documented by: Promethazine HCl 12.5 mg/ (Sodium Chloride) 50.5 mls @ 202 mls/hr IV Q6H PRN PRN Reason: Nausea And Vomiting Stop: 12/30/20 23:38 Fentanyl Citrate (Fentanyl Drip) 1,250 mcg in 250 mls @ 35 mls/hr IV .Q7H9M [facility]; Protocol Stop: 12/18/20 08:44 Last Admin: 12/08/20 07:09 Dose: 175 mcg/hr, 35 mls/hr Documented by: Dexamethasone 6 mg/ Syringe 1.5 mls @ 1 mls/min IV DAILY [facility] Stop: 12/09/20 23:59 Last Admin: 12/08/20 08:11 Dose: 1 mls/min Documented by: Pantoprazole Sodium 40 mg/ (Syringe) 10 mls @ 5 mls/min IV QAM [facility] Stop: 01/05/21 08:59 Last Admin: 12/08/20 08:12 Dose: 5 mls/min Documented by: Norepinephrine Bitartrate (Levophed/D5w) 8 mg in 508 mls @ 17.393 mls/hr IV .Q24H [facility]; Protocol Stop: 01/06/21 09:44 Last Titration: 12/08/20 11:23 Dose: 0.05 mcg/kg/min, 17.4 mls/hr Documented by: Ceftriaxone Sodium 2,000 mg/ (Dextrose) 70 mls @ 140 mls/hr IV DAILY@1400 [facility]; Protocol Stop: 12/14/20 13:59 Last Infusion: 12/07/20 16:45 Dose: Infused Documented by: Propofol (Diprivan) 1,000 mg in 100 mls @ 10.956 mls/hr IV .Q9H8M [facility]; Protocol Stop: 12/10/20 15:44 Last Admin: 12/08/20 11:14 Dose: 20 mcg/kg/min, 11 mls/hr Documented by: Sodium Chloride (Nss 1000ml) 1,000 mls @ 0 mls/hr IV .Q0M PRN PRN Reason: For Hemodialysis Use ONLY Stop: 12/08/20 14:06 Insulin Aspart (Insulin Aspart 100 Units/Ml 3 Ml Pen) 0 units SC Q4 [facility]; Protocol Stop: 01/06/21 15:59 Last Admin: 12/08/20 11:20 Dose: 5 units Documented by: Insulin Glargine (Insulin Glargine Solostar 100 Units/Ml 3 Ml Pen) 30 units SQ QAM [facility]; Protocol Stop: 01/04/21 08:59 Last Admin: 12/08/20 08:34 Dose: 30 units Documented by: Insulin Glargine (Insulin Glargine Solostar 100 Units/Ml 3 Ml Pen) 0 units SQ DAILY@2000 [facility]; Protocol Stop: 01/06/21 19:59 Last Admin: 12/07/20 19:35 Dose: Not Given Documented by: Levalbuterol HCl (Levalbuterol Hcl 1.25 Mg/3 Ml Neb) 1.25 mg NEB NOW PRN PRN Reason: Shortness Of Breath Or Wheezing Stop: 01/03/21 13:46 Metoclopramide HCl (Metoclopramide Hcl 10 Mg/10 Ml Udc) 10 mg NG Q6 [facility] Stop: 12/09/20 12:01 Last Admin: 12/08/20 11:23 Dose: 10 mg Documented by: Miscellaneous (Carbohydrates For Hypoglycemia ) 15 - 30 gm PO UD PRN PRN Reason: Hypoglycemia Protocol Stop: 12/30/20 23:38 Miscellaneous Information (Pharmacy Glycemic Mgmt Consult) 1 ea N/A UD PRN PRN Reason: Consult Stop: 12/31/20 16:59 Multi-Ingredient Cream (Artificial Tears Op Oint 3.5 Gm Tube) 1 appln OP Q4H PRN PRN Reason: DRY EYES Stop: 01/07/21 10:03 Last Admin: 12/08/20 11:24 Dose: 1 appln Documented by: Nutritional Formula (Prosource No Carb 30 Ml/Pkt) 30 ml OG DAILY [facility] Stop: 01/07/21 08:59 Last Admin: 12/08/20 08:12 Dose: 30 ml Documented by: Propofol (Propofol Bolus From Bag) 20 mg IV Q5M PRN PRN Reason: Sedation Stop: 12/10/20 15:43 Rosuvastatin Calcium (Rosuvastatin Calcium 5 Mg Tab) 5 mg PO DAILY [facility] Stop: 12/31/20 08:59 Last Admin: 12/08/20 08:12 Dose: 5 mg Documented by: Sennosides (Sennosides 8.8 Mg/5 Ml Udc) 8.8 mg PO QAM [facility] Stop: 01/06/21 08:59 Last Admin: 12/08/20 08:12 Dose: 8.8 mg Documented by: Sterile Water (Tube Feeding Water Flush) 30 ml OG Q4 [facility] Stop: 01/04/21 12:14 Last Admin: 12/08/20 11:24 Dose: 30 ml Documented by: Pending Studies at Discharge: No Stand-Alone Forms: [facility] Skilled Items Patient informed of condition?: Yes DNR: No Discharge Level of Care: Other Communicable Disease: No Discharge Prognosis: Stable Lines: JACC Urinary Catheter: Yes Medications and DC Order Prescriptions: Discontinued amlodipine 5 mg tablet 5 mg PO QAM RF: 0 aspirin [Aspirin Low Dose] 81 mg Tablet,Delayed Release (Dr/Ec) 81 mg PO QAM RF: 0 glimepiride 1 mg tablet 1 mg PO QAM RF: 0 cholecalciferol (vitamin D3) [Vitamin D3] 1,000 unit Capsule 1,000 unit PO QAM RF: 0 lisinopril 20 mg tablet 20 mg PO DAILY RF: 0 rosuvastatin 5 mg tablet 5 mg PO DAILY RF: 0 hydroxyzine HCl 10 mg tablet 10 mg PO BID PRN (Reason: anxiety/itching) RF: 0 Discharge Orders: Discharge Order (Routine); Ordered 12/08/20 Ordered By: Emily Amaya/Other Patient Handouts: Managing Type 2 Diabetes, A1C Admission Data Admit Date/Time: 11/30/20 21:53 Attending Provider: Emily Garcia Admit Provider: Kenny Juan Primary Care Provider: Bala Neely Other Providers: Florin Sipmson ; Kenny Juan ; Eloise Reza ; Yanet Magdaleno
== END 2020-12-08 19:05 | disposition short-term general hospital (02) | DRG 207 ==
LOC: ED 18:51 → SUATTDRO 21:53 → 2S 21:53 → 1E 12-02 18:26